=== PATIENT | male | born 1945 | race Caucasian/White ===

== ENCOUNTER 2021-08-26 10:49 | Inpatient (IN) ==
--- NOTE | 2021-08-26 11:25 | XRay Report ---
SINGLE VIEW CHEST CLINICAL HISTORY: Generalized weakness. FINDINGS: An AP, portable, upright chest radiograph is compared to study dated 09/22/2009. The examinat ion is degraded by portable technique and apical lordotic positioning. The patient is status post mid line sternotomy. The heart is enlarged noting atherosclerotic calcification of the thoracic aorta. Ch ronic interstitial thickening is similar to previous. There is bibasilar scarring/atelectasis. No air space consolidation or large pleural effusion is identified. No pneumothorax is seen. The skeletal st ructures are osteopenic. The bony thorax is grossly intact. IMPRESSION: Cardiomegaly with no acute cardiopulmonary abnormality. ACT 112: Negative or not required by law. Electronically signed by: Hunter Gracia M.D. 08/26/2021 11:23 AM
--- NOTE | 2021-08-26 11:48 | Emergency Department Note ---
Impression & Plan Weakness, Falling, Hypertension, Elevated troponin, Medical non-compliance ED Provider Note NAME: WALLACE ALCANTAR AGE: 76 SEX: M : 1945 ARRIVES VIA: Walk-In INFORMANT: Patient, family, nursing ED PROVIDER(S): [Hunter Nunn MD] CHIEF COMPLAINT: Weakness, illness HISTORY OF PRESENT ILLNESS: The patient is a 76-year-old male who is brought in for evaluation by his family. As per the family's report, the patient stopped taking all of his medications in May, several months ago. Since that timeframe, he has had a slow but steady decline. Yesterday, they actually called the office of aging but, that service has not yet been out to the house. The patient fell last week because of weakness. He is off balance and cannot ambulate on his own. He is more confused. His blood pressure has been high. He has lost urine and bowel continence. The patient is adamant that there is nothing wrong, he was for a long time refusing an evaluation but did agree to come to the ER today. The patient himself denies complaints. He does not have pain. He is not short of breath. There is no headache. No chest pain. Patient does admit that he is having difficulty walking. He admits to stopping his medications because he states "I just did not need them." As per nursing staff, the patient cannot ambulate on his own without assistance. He would have fallen without help. REVIEW OF SYSTEMS: See HPI for pertinent positives and negatives. A total of ten systems were reviewed and were otherwise negative. PMHx/PSHx: See Below SOCIAL HISTORY: See Below. PHYSICAL EXAM: GENERAL: Patient is in no acute distress. HEENT: No acute trauma, normocephalic atraumatic, mucous membranes moist, no nasal congestion, no scleral icterus. NECK: No stridor, no adenopathy, no meningismus, trachea is midline. LUNGS: Clear to auscultation bilaterally, no wheeze, no rhonchi, breath sounds equal. HEART: Without murmurs gallops or rubs, regular rate and rhythm. ABDOMEN: Soft, nontender, bowel sounds positive, no hernias, no peritonitis. EXTREMITIES: No cyanosis, trace bilateral pedal edema, full range of motion of all the joints without pain or difficulty, no signs for acute trauma. NEUROLOGIC: Awake and alert, no acute motor or sensory deficits, no focal weakness. No facial droop or speech slur, no extremity drift or cerebellar dysfunction. SKIN: No rash, no jaundice, no diaphoresis. DIFFERENTIAL DIAGNOSIS: Infection, dehydration, UTI, COVID-19, dementia, medication noncompliance, metabolic abnormality, hypo/hyperglycemia, electrolyte disturbance, anemia, hypoxia, cardiac sources, intracerebral event, toxicologic issues, stroke, TIA, as well as other pathologies. EMERGENCY DEPARTMENT COURSE/PROCEDURES: ECG: Indication was weakness. The ECG shows a normal sinus rhythm with a rate of 76. There is an incomplete right bundle branch block. No ST elevation. No PVCs. There are inverted T waves laterally. Compared to an ECG from 23 September 2009, the lateral T wave inversions are more pronounced today. Continuous Cardiac Monitoring: An order was placed for continuous cardiac monitoring. The monitor shows a rate of 76 with normal sinus rhythm. Critical Care Note: I have personally spent 39 minutes of critical care time in the direct management of this patient. This includes bedside care, interpretation of diagnostic studies, and testing, discussion with consultants, patient, and family members, and other required patient management activities. This 39 minutes is in excess of all separately billable procedures. MEDICAL DECISION MAKING: There is no leukocytosis or concerning anemia. There is a normal platelet count. No significant electrolyte abnormality or kidney failure. No concerning liver enzyme elevation. TSH was slightly high however, the T4 was normal. ECG shows a normal sinus rhythm. There are some inverted T waves noted but no ST elevation. Cardiac enzyme testing x1 does show a troponin bump consistent with cardiac injury or strain. Brain CT shows older infarcts, no acute bleed or mass-effect. Chest film does not show pneumonia or CHF. Urinalysis is pending. The patient was hypertensive. He received IV hydralazine, IV labetalol. A second dose of IV labetalol was given. The patient has been medically noncompliant. He presents with weakness and falling and the inability to ambulate. He has had some urinary and bowel incontinence. He is quite hypertensive and has CT findings of older CVAs. The patient has consented to a hospital stay for more of a work-up and care. I did speak with the patient and his , case management has been involved. The on-call hospitalist has been consulted. Past Med/Surg History Medical History Hypertension Social History Smoking Status: Former smoker Feels Safe at Home: Yes Allergies Allergies Allergy/AdvReac Type Severity Reaction Status Date / Time No Known Allergies Verified 08/26/21 12:04 Home Meds Home Medications Medication Instructions Recorded Confirmed No Known Home Medications 08/26/21 08/26/21 Results & Data (ED) Vital Signs Vital Signs - 24 hr 08/26/21 10:55 08/26/21 11:36 08/26/21 11:37 Temperature 36.5 C Temperature Source Skin Pulse Rate 83 Pulse Rate [Apical] 76 Pulse Rhythm Regular Pulse Rhythm [Apical] Pulse Strength Normal Respiratory Rate 20 16 Respiratory Effort / Characteristics Non-Labored Spontaneous Respiratory Depth Normal Respiratory Pattern Regular Blood Pressure 185/107 H Blood Pressure [Left Arm] 195/121 H Blood Pressure Mean 133 Blood Pressure Mean [Left Arm] 145 Pulse Oximetry 95 99 99 Oxygen Delivery Method Room Air Room Air Room Air Sepsis Recent Fever Within 48 Hours No Sepsis New/Unexplained Change in Mental Status N/A Sepsis Action Taken by Nursing No Action Required 08/26/21 14:52 Temperature Temperature Source Pulse Rate Pulse Rate [Apical] 77 Pulse Rhythm Pulse Rhythm [Apical] Regular Pulse Strength Respiratory Rate 15 Respiratory Effort / Characteristics Respiratory Depth Normal Respiratory Pattern Blood Pressure Blood Pressure [Left Arm] 201/119 H Blood Pressure Mean Blood Pressure Mean [Left Arm] 146 Pulse Oximetry 95 Oxygen Delivery Method Sepsis Recent Fever Within 48 Hours Sepsis New/Unexplained Change in Mental Status Sepsis Action Taken by [facility] Medications Current Medication List: was personally reviewed by me Laboratory Data Attestation: I reviewed the patient's lab results. Result diagrams: 08/26/21 11:30 08/26/21 11:30 Lab Results 08/26/21 08/26/21 08/26/21 Range/Units 11:30 11:30 11:30 WBC 9.31 (4.8-10.8) K/uL RBC 5.52 (4.7-6.1) M/uL Hgb 17.4 (14.0-18.0) g/dL Hct 50.5 (42-52) % MCV 91.5 (80-100) fL MCH 31.5 (25-34) pg MCHC 34.5 (32-36) g/dL RDW Std Deviation 45.0 (36.4-46.3) fL RDW Coeff of Satya 13.4 (11.5-14.5) % Plt Count 239 (130-400) K/uL MPV 10.4 (7.4-10.4) fL Immature Gran % (Auto) 0.2 % Neut % (Auto) 73.0 % Lymph % (Auto) 18.6 % Haakon % (Auto) 6.9 % Eos % (Auto) 1.1 % Baso % (Auto) 0.2 % Neut # (Auto) 6.80 H (1.4-6.5) K/uL Lymph # (Auto) 1.73 (1.2-3.4) K/uL Haakon # (Auto) 0.64 H (0.11-0.59) K/uL Eos # (Auto) 0.10 (0-0.5) K/uL Baso # (Auto) 0.02 (0-0.2) K/uL Immature Gran # (Auto) 0.02 (0.00-0.02) K/uL Sodium 142 (136-145) mmol/L Potassium TNP Chloride 103 (98-107) mmol/L Carbon Dioxide 30 (21-32) mmol/L Anion Gap 9 (3-11) BUN 12 (6-23) mg/dl Creatinine 1.35 (0.6-1.4) mg/dl Est Cr Clr Drug Dosing Not Reportable Est GFR ( Amer) 57.9 ml/min Est GFR (Non-Af Amer) 49.9 ml/min BUN/Creatinine Ratio 8.9 L (10-20) Glucose 108 H (70-99(Fasting)) mg/dl Calcium 9.4 (8.5-10.1) mg/dl Magnesium 2.3 (1.7-2.4) mg/dl Total Bilirubin 0.7 (0.2-1.0) mg/dl AST TNP ALT 13 (7-52) U/L Alkaline Phosphatase 81 (34-104) U/L Total Creatine Kinase 111 (30-223) U/L Troponin I 0.12 H* (0-0.04) ng/ml Total Protein 7.4 (6.0-8.3) gm/dl Albumin 4.2 (3.4-5.0) gm/dl Globulin 3.2 (2.5-4.0) gm/dl Albumin/Globulin Ratio 1.3 (0.9-2) TSH 4.923 H (0.300-4.500) uIu/ml Free T4 0.72 (0.61-1.60) ng/dl SARS-CoV-2, RNA, NAAT (NEGATIVE) 08/26/21 Range/Units 11:57 WBC (4.8-10.8) K/uL RBC (4.7-6.1) M/uL Hgb (14.0-18.0) g/dL Hct (42-52) % MCV (80-100) fL MCH (25-34) pg MCHC (32-36) g/dL RDW Std Deviation (36.4-46.3) fL RDW Coeff of Satya (11.5-14.5) % Plt Count (130-400) K/uL MPV (7.4-10.4) fL Immature Gran % (Auto) % Neut % (Auto) % Lymph % (Auto) % Haakon % (Auto) % Eos % (Auto) % Baso % (Auto) % Neut # (Auto) (1.4-6.5) K/uL Lymph # (Auto) (1.2-3.4) K/uL Haakon # (Auto) (0.11-0.59) K/uL Eos # (Auto) (0-0.5) K/uL Baso # (Auto) (0-0.2) K/uL Immature Gran # (Auto) (0.00-0.02) K/uL Sodium (136-145) mmol/L Potassium Chloride (98-107) mmol/L Carbon Dioxide (21-32) mmol/L Anion Gap (3-11) BUN (6-23) mg/dl Creatinine (0.6-1.4) mg/dl Est Cr Clr Drug Dosing Est GFR ( Amer) ml/min Est GFR (Non-Af Amer) ml/min BUN/Creatinine Ratio (10-20) Glucose (70-99(Fasting)) mg/dl Calcium (8.5-10.1) mg/dl Magnesium (1.7-2.4) mg/dl Total Bilirubin (0.2-1.0) mg/dl AST ALT (7-52) U/L Alkaline Phosphatase (34-104) U/L Total Creatine Kinase (30-223) U/L Troponin I (0-0.04) ng/ml Total Protein (6.0-8.3) gm/dl Albumin (3.4-5.0) gm/dl Globulin (2.5-4.0) gm/dl Albumin/Globulin Ratio (0.9-2) TSH (0.300-4.500) uIu/ml Free T4 (0.61-1.60) ng/dl SARS-CoV-2, RNA, NAAT NEGATIVE (NEGATIVE) Administered Medications Discontinued Medications Hydralazine HCl (Hydralazine Hcl 20 Mg/Ml Vial) 10 mg IV NOW STA Stop: 08/26/21 13:10 Last Admin: 08/26/21 13:15 Dose: 10 mg Documented by: [id number] Labetalol HCl (Labetalol Hcl Iv 5 Mg/Ml 20ml) 10 mg IV NOW STA Stop: 08/26/21 12:29 Last Admin: 08/26/21 12:34 Dose: 10 mg Documented by: [id number] Cosigned by: [id number] Imaging Data Radiologist's Impression: Chest X-Ray 08/26/21 11:08 SINGLE VIEW CHEST CLINICAL HISTORY: Generalized weakness. FINDINGS: An AP, portable, upright chest radiograph is compared to study dated 09/22/2009. The examination is degraded by portable technique and apical lordotic positioning. The patient is status post midline sternotomy. The heart is enlarged noting atherosclerotic calcification of the thoracic aorta. Chronic interstitial thickening is similar to previous. There is bibasilar scarring/atelectasis. No airspace consolidation or large pleural effusion is identified. No pneumothorax is seen. The skeletal structures are osteopenic. The bony thorax is grossly intact. IMPRESSION: Cardiomegaly with no acute cardiopulmonary abnormality. ACT 112: Negative or not required by law. Electronically signed by: Hunter Gracia M.D. 08/26/2021 11:[address] 08/26/21 11:08 CT SCAN OF THE BRAIN WITHOUT IV CONTRAST CLINICAL HISTORY: Change in mental status. COMPARISON STUDY: No priors. TECHNIQUE: Unenhanced axial CT scan of the brain is performed from the vertex to the skull base. A dose lowering technique was utilized adhering to the principles of ALARA. CT DOSE: 537.48 mGy.cm FINDINGS: Brain parenchyma: There are age-related involutional changes noting moderate to advanced subcortical and periventricular microangiopathic change. Chronic appearing infarcts are noted in the basal ganglia bilaterally. There is no hemorrhage, mass effect, or evidence of acute territorial ischemia by CT criteria. Rodriguez-white matter differentiation is preserved. No extra-axial fluid collection is seen. Ventricles, sulci, cisterns: Prominent secondary to involutional change. Intracranial vasculature: There is atherosclerotic calcification of the cavernous carotid and vertebral arteries. Calvarium: Unremarkable. Sinuses and mastoids: The visualized paranasal sinuses are clear. The mastoid air cells are well pneumatized. Orbits: The bony orbits are grossly intact. IMPRESSION: There is no hemorrhage, mass effect, or evidence of acute territorial ischemia by CT criteria. ACT 112: Negative or not required by law. Electronically signed by: Hunter Gracia M.D. 08/26/2021 12:15 PM Discharge Plan Visit Data Chief Complaint: Shortness of Breath/Dyspnea Stated Complaint: INCONTINENCE, REFUSING MEDS, MENTAL HEALTH, SOB ED Provider: Hunter Nunn Discharge Problem: Weakness, Falling, Hypertension, Elevated troponin, Medical non-compliance Patient Disposition: Admitted As Inpatient Condition: Fair Forms Stand Alone Forms: [employer] Prescriptions Prescriptions: No Action No Known Home Medications RF: 0 Referrals Referrals: PCP,NO [Primary Care Provider] -
[2021-08-26 11:56] LABS: Basophils # (auto) 0.02 K/uL (0-0.2); Basophils % (auto) 0.2 %; Eosinophils % (auto) 1.1 %; Hematocrit (blood only) 50.5 % (42-52); Hemoglobin 17.4 g/dL (14.0-18.0); Immature Granulocytes # (auto) 0.02 K/uL (0.00-0.02); Immature Granulocytes % (auto) 0.2 %; Lymphocytes # (auto) 1.73 K/uL (1.2-3.4); Lymphocytes % (auto) 18.6 %; Mean Corpuscular Hemoglobin 31.5 pg (25-34); Mean Corpuscular Hgb Conc 34.5 g/dL (32-36); Mean Corpuscular Volume 91.5 fL (80-100); Mean Platelet Volume 10.4 fL (7.4-10.4); Monocytes # (auto) 0.64 K/uL (0.11-0.59); Monocytes % (auto) 6.9 %; Platelet Count 239 K/uL (130-400); RDW Coefficient of Variation 13.4 % (11.5-14.5); Red Blood Count 5.52 M/uL (4.7-6.1); White Blood Count 9.31 K/uL (4.8-10.8)
--- NOTE | 2021-08-26 12:02 | Electrocardiogram Report ---
Test Reason : Blood Pressure : / mmHG Vent. Rate : 076 BPM Atrial Rate : 076 BPM P-R Int : 196 ms QRS Dur : 092 ms QT Int : 412 ms P-R-T Axes : 074 -56 128 degrees QTc Int : 463 ms Normal sinus rhythm Incomplete right bundle branch block Left anterior fascicular block Poor R wave progression, consider anterior ND vs. lead placement vs. LVH Left ventricular hypertrophy with repolarization abnormality Abnormal ECG When compared with ECG of 23-SEP-2009 06:55, Left anterior fascicular block is now Present Inverted T waves have replaced nonspecific T wave abnormality in Lateral leads Confirmed by Naren Rachel ([id number]) on 08/26/2021 12:02:10 PM Referred By: Confirmed By:Naren Rachel
--- NOTE | 2021-08-26 12:16 | CT Scan Report ---
CT SCAN OF THE BRAIN WITHOUT IV CONTRAST CLINICAL HISTORY: Change in mental status. COMPARISON STUDY: No priors. TECHNIQUE: Unenhanced axial CT scan of the brain is performed from the vertex to the skull base. A do se lowering technique was utilized adhering to the principles of ALARA. CT DOSE: 537.48 mGy.cm FINDINGS: Brain parenchyma: There are age-related involutional changes noting moderate to advanced subcortical and periventricular microangiopathic change. Chronic appearing infarcts are noted in the basal gangl ia bilaterally. There is no hemorrhage, mass effect, or evidence of acute territorial ischemia by CT criteria. Rodriguez-white matter differentiation is preserved. No extra-axial fluid collection is seen. Ventricles, sulci, cisterns: Prominent secondary to involutional change. Intracranial vasculature: There is atherosclerotic calcification of the cavernous carotid and vertebr al arteries. Calvarium: Unremarkable. Sinuses and mastoids: The visualized paranasal sinuses are clear. The mastoid air cells are well pneu matized. Orbits: The bony orbits are grossly intact. IMPRESSION: There is no hemorrhage, mass effect, or evidence of acute territorial ischemia by CT sita mcintosh. ACT 112: Negative or not required by law. Electronically signed by: Hunter Gracia M.D. 08/26/2021 12:15 PM
[2021-08-26 12:25] LABS: Alanine Aminotransferase 13 U/L (7-52); Albumin Globulin Ratio 1.3 (0.9-2); Albumin Level 4.2 gm/dl (3.4-5.0); Alkaline Phosphatase 81 U/L (34-104); Anion Gap 9 (3-11); BUN Creatinine Ratio 8.9 (10-20); Bilirubin,Total 0.7 mg/dl (0.2-1.0); Blood Urea Nitrogen 12 mg/dl (6-23); Calcium 9.4 mg/dl (8.5-10.1); Carbon Dioxide 30 mmol/L (21-32); Chloride 103 mmol/L (98-107); Creatine Kinase 111 U/L (30-223); Est GFR (African American) 57.9 ml/min; Est GFR (Non-African American) 49.9 ml/min; Globulin 3.2 gm/dl (2.5-4.0); Glucose 108 mg/dl (70-99(Fasting)); Magnesium 2.3 mg/dl (1.7-2.4); Sodium 142 mmol/L (136-145); Total Protein 7.4 gm/dl (6.0-8.3); Troponin I 0.12 ng/ml (0-0.04)
[2021-08-26] MEDS ORDERED: LABETALOL HCL IV 5 MG/ML 20ML IV STA ×2 (12:28→14:55)
[2021-08-26 12:30] LABS: Thyroid Stimulating Hormone 4.923 uIu/ml (0.300-4.500)
[2021-08-26 13:07] LABS: T4 Free Thyroxine 0.72 ng/dl (0.61-1.60)
[2021-08-26] MEDS ORDERED: hydrALAZINE HCL 20 MG/ML VIAL IV STA (13:09)
[2021-08-26] MEDS ORDERED: lisinopril 20 MG TAB PO STA (16:06)
[2021-08-26] MEDS ORDERED: SODIUM CHLORIDE 0.65% NA SOLN 45 ML (OCEAN) ONE (16:32)
--- NOTE | 2021-08-26 17:54 | History & Physical Report ---
Date of Service August 26, 2021 Assessment & Plan (1) Hypertensive urgency: Plan: 76-year-old white male with an underlying past medical history of HTN and CAD s/p MO and CABG presented with progressive decline, intermittent confusion and ambulatory dysfunction * Stopped taking all of his medications May 2021 * not following with PCP or Cardiology at this time * BP upon arrival 195/121 * Given labetalol 10 mg IV X2 and hydralazine 10 mg IV X1. Follow-up BP pending * Lengthy discussion with patient regarding the importance of medical compliance * Start lisinopril 20 mg daily along with Coreg 6.25 mg daily (for BP control but also given his underlying h/o CAD) * EF unknown. Obtain echo and if EF >35%, consider addition of procardia if continued BP control needed (2) Hypertensive encephalopathy: Plan: * Patient seems answer all questions appropriately but does appear to have intermittent periods of subtle confusion. reports ongoing but she has not been able to get patient to come into the hospital * I suspect this is related to hypertensive encephalopathy * See above as outlined (3) Cerebrovascular disease: Plan: * CT scan showing findings consistent with chronic basal ganglia infarct * Hold off on MRI for now as patient without acute neurological deficits as I do not feel he would be compliant with an MRI * Should be on an aspirin and statin irregardless because of his underlying CAD thus these medication should also help provide cerebrovascular protection * Would consider MRI should his clinical status change * Obtain echocardiogram and carotid Dopplers to further assess LV function, for intracardiac thrombus and to assess carotid flow * Lipid panel in the a.m. for risk stratification (4) Ambulatory dysfunction: Plan: * Uncertain what to make of this but likely related to general decline given lack of compliance with medications * Will get him back on the appropriate medications and consult PT/OT (5) Abnormal TSH: Plan: * I have ordered a free T4 and a total T3 * May have euthyroid sick syndrome * Would hold off on additional medications at this time (as he believes he does not need to take any medications and right now, I think the antihypertensive medications more important) * Would advise follow-up TSH in 6 to 8 weeks and if remains abnormal, would have a low threshold to start Synthroid given his underlying history of cardiac disease (6) Elevated troponin: Plan: * Patient without chest pain. He does have nonspecific but nonacute ST/T wave changes throughout * Will cycle troponin * Suspect secondary to hypertensive urgency * Obtain echocardiogram (7) Medical non-compliance: Plan: * Lengthy discussion with patient regarding the importance of medical compliance and the fact that his noncompliance with his antihypertensive medications is likely the cause to his old stroke which fortunately has left him without sequ mo * He is well aware of the complications of continued medical noncompliance * I am not convinced that he will take his medications but he has agreed to take the medications as outlined and stay overnight at least tonight (8) CAD (coronary artery disease): Plan: * Patient stopped all medications * As outlined above, starting him on lisinopril, beta-blockade, statin therapy, and aspirin * Obtain an echocardiogram as above * Will need reestablish with cardiology but this can be facilitated as an outpatient pending he has no cardiac complications during this hospital stay Plan: Plan of care will be discussed with Dr. Calderon. Further orders as warranted. History of Present Illness Chief Complaint: Weakness and increased confusion Primary Care Provider: NO PCP Mr. Rogers is a 76-year-old white male with an underlying past medical history of HTN and CAD s/p MO and CABG. He is a limited historian given his agitation and inability to cooperate with the exam. His is at bedside. She reports ongoing decline/debility over the past several weeks to months. On his own accord, he stopped taking all of his medications May 2021 as "he did not need them anymore". He does seem to be answering all my questions appropriately but there are times that he seems slightly confused saying things like "I will take my 's medications and the medications I am on increase my blood pressure". At any rate, reports that she has been struggling to provide care for him as he continues to decline. He has been progressively weak and lately unable to ambulate independently. He seemed somewhat confused which prompted her to seek medical attention. In the emergency department. His blood pressure was elevated at 195/121. He was given labetalol and hydralazine IV with limited improvement in his blood pressure requiring a second dose of labetalol be given. Patient needs unable to tell me specifically what medications he was on for blood pressure control but believes lisinopril sounds familiar. At any rate, his CBC and metabolic panel were unremarkable. His troponin was slightly elevated at 0.12. He denies chest pain, and his EKG is nonacute. His Covid test is negative. CT scan of the head shows no acute intracranial process but findings consistent with chronic infarcts noted in the basal ganglia. Chest x- ray shows no acute cardiopulmonary process. Patient reports no complaints or concerns. He claims "I feel fine and I do not need to be here". Will be hospitalized for further evaluation and care. Allergies Allergy/AdvReac Type Severity Reaction Status Date / Time No Known Allergies Verified 08/26/21 12:04 Home Medications Medication Instructions Recorded Confirmed Type No Known Home Medications 08/26/21 08/26/21 History Past Med/Surg History Medical History (Updated 08/26/21 @ 17:50 by Nafisa Munoz PA-C) CAD (coronary artery disease) Cerebrovascular disease Hypertension Surgical History (Updated 08/26/21 @ 17:38 by Nafisa Munoz PA-C) Hx of CABG Social History (Updated 08/26/21 @ 17:39 by Nafisa Munoz PA-C) Smoking Status: Former smoker Tobacco Type: Cigarettes Hx Alcohol Use: No Hx Substance Use: No Current Living Situation: Spouse current occupational status: retired Feels Safe at Home: Yes Review of Systems Review of Systems: All systems reviewed and are unremarkable except as noted in HPI and below Denies fevers, chills, headache, nasal congestion, sore throat, cough, chest pain, shortness of breath, palpitations, orthopnea, PND, abdominal pain, nausea, vomiting, diarrhea, constipation, dysuria, hematuria, frequency, back pain, joint pain or swelling, easy bruising or bleeding, skin lesions or rashes. Physical Exam Physical Exam: General: Resting comfortably in his hospital bed. He does not appear acutely ill. Initially was very cantankerous but towards the end of our encounter, he was more cooperative HEENT: Head is AT/NC. Eyes somewhat injected. mucosa is moist and pink Neck: No JVD. Negative hepatojugular reflex Cardiac: RRR but distant likely due to habitus Lungs: CTA without W/R/R Abdomen: Normoactive X4. Soft and nontender in all quadrants. Extremities: No peripheral clubbing cyanosis or edema Neuro:[A&O X4does answer all questions appropriately. Cranial nerves II through XII are grossly intact. No focal neuro deficits Skin: No obvious skin lesions or rashes Psych: Appropriate affect pleasant and cooperative Results & Data Results & Data ([facility]) Vital Signs (Past 12 Hours) Vital Signs Temp Pulse Pulse Resp BP BP Pulse Ox 08/26/21 14:52 77 15 201/119 H 95 08/26/21 11:37 99 08/26/21 11:36 76 16 195/121 H 99 08/26/21 10:55 36.5 C 83 20 185/107 H 95 Laboratory Results 08/26/21 11:30 08/26/21 11:30 Troponin: 0.12 TSH: 4.923 Covid: Negative Diagnostic Findings CXR: IMPRESSION: Cardiomegaly with no acute cardiopulmonary abnormality. CT of the head: FINDINGS: Brain parenchyma: There are age-related involutional changes noting moderate to advanced subcortical and periventricular microangiopathic change. Chronic appearing infarcts are noted in the basal ganglia bilaterally. There is no hemorrhage, mass effect, or evidence of acute territorial ischemia by CT criteria. Rodriguez-white matter differentiation is preserved. No extra-axial fluid collection is seen. Ventricles, sulci, cisterns: Prominent secondary to involutional change. Intracranial vasculature: There is atherosclerotic calcification of the cavernous carotid and vertebral arteries. Calvarium: Unremarkable. Sinuses and mastoids: The visualized paranasal sinuses are clear. The mastoid air cells are well pneumatized. Orbits: The bony orbits are grossly intact. IMPRESSION: There is no hemorrhage, mass effect, or evidence of acute territorial ischemia by CT criteria. EKG: Normal sinus rhythm. Rate 76 bpm. Left axis deviation. Poor R wave progression. Nonspecific but no acute ST/T wave changes throughout. Code Status & VTE Plan VTE Prophylaxis Plan VTE Prophylaxis will be ordered: Yes Supervising Physician Co-Signing Physician Notes Reviewed documentation, discussed with BHARATI. This is a 76-year-old male who presents with significantly elevated blood pressure. He does have a history of hypertension but has been noncompliant with his medications over several months. His blood pressure is documented at 201/119. Patient is being started outpatient medication including lisinopril and carvedilol. He has hydralazine 10 mg ordered every 6 hours. If blood pressure remains very elevated the patient develops any neurologic symptoms, consider transfer to the ICU and IV drip (nitro, nicardipine, or similar) PG Care Time/CCT Total # of Minutes Spent Total Time Spent with Patient: Total time spent is greater than 50% in coordination of care (as documented) at patient's floor/unit and/or counseling patient: Coding Level of Care Code INT OBSERVATION CARE 70M LVL 3 Diagnoses Hypertensive urgency I16.0 Hypertensive encephalopathy I67.4 Ambulatory dysfunction R26.2 Abnormal TSH R79.89 Elevated troponin R77.8 Medical non-compliance Z91.19 CAD (coronary artery disease) I25.10 Cerebrovascular disease I67.9
[2021-08-26 19:10] LABS: Appearance Urine Clear (Clear); Bacteria Urine Automated Negative (Negative); Bilirubin Urine Negative (Negative); Blood Urine Negative (Negative); Color Urine Dark Yellow; Glucose Urine UA Negative (Negative); Ketones Urine Trace (Negative); Leukocyte Esterase Urine Negative (Negative); Nitrite Urine Negative (Negative); Protein Urine 1+ (Negative); RBC Urine Automated 0-4 /hpf (0-4); Specific Gravity Urine 1.023 (1.000-1.030); Urobilinogen Urine Negative (Negative); pH Urine 5.5 (4.5-7.5)
[2021-08-26 19:26] LABS: Calcium Oxalate Crystals Urine Present (None Prsent)
[2021-08-26] MEDS ORDERED: ALUMINUM/MAGNESIUM SUSP 30 ML UDC PO PRN (19:31)
[2021-08-26] MEDS ORDERED: POLYETHYLENE (MIRALAX) 17 GM PACK PO PRN (19:31)
[2021-08-26] MEDS ORDERED: ACETAMINOPHEN 325 MG TAB PO PRN (19:31)
[2021-08-26] MEDS ORDERED: NITROGLYCERIN SL 0.4 MG/TAB TAB SL PRN (19:31)
[2021-08-26] MEDS ORDERED: ONDANSETRON INJ 2 MG/ML 2 ML VIAL IV PRN (19:31)
[2021-08-26] MEDS ORDERED: MAGNESIUM HYDROXIDE SUSP 30 ML UDC PO PRN (19:31)
[2021-08-26] MEDS: ENOXAPARIN INJ 40 MG/0.4 ML SYR SQ SCH (20:40)
[2021-08-26] MEDS: hydrALAZINE HCL 20 MG/ML VIAL IV PRN (20:40)
[2021-08-26] MEDS: carvediloL 6.25 MG TAB PO SCH (20:40)
[2021-08-27 02:23] LABS: Basophils # (auto) 0.01 K/uL (0-0.2); Basophils % (auto) 0.1 %; Eosinophils # (auto) 0.08 K/uL (0-0.5); Eosinophils % (auto) 0.9 %; Hematocrit (blood only) 48.8 % (42-52); Hemoglobin 16.5 g/dL (14.0-18.0); Immature Granulocytes # (auto) 0.01 K/uL (0.00-0.02); Immature Granulocytes % (auto) 0.1 %; Lymphocytes % (auto) 20.6 %; Mean Corpuscular Hemoglobin 30.8 pg (25-34); Mean Corpuscular Hgb Conc 33.8 g/dL (32-36); Mean Platelet Volume 10.1 fL (7.4-10.4); Monocytes # (auto) 0.63 K/uL (0.11-0.59); Monocytes % (auto) 6.8 %; Neutrophils # (auto) 6.58 K/uL (1.4-6.5); Neutrophils % (auto) 71.5 %; Platelet Count 210 K/uL (130-400); RDW Coefficient of Variation 13.4 % (11.5-14.5); RDW Standard Deviation 44.2 fL (36.4-46.3); Red Blood Count 5.36 M/uL (4.7-6.1); White Blood Count 9.21 K/uL (4.8-10.8)
[2021-08-27 02:57] LABS: Albumin Globulin Ratio 1.3 (0.9-2); Albumin Level 3.7 gm/dl (3.4-5.0); BUN Creatinine Ratio 11.9 (10-20); Bilirubin,Total 0.7 mg/dl (0.2-1.0); Calcium 9.1 mg/dl (8.5-10.1); Creatinine Clr Calc Pharmacy 62.9 ml/min; Est GFR (African American) 68.1 ml/min; Est GFR (Non-African American) 58.8 ml/min; Globulin 2.8 gm/dl (2.5-4.0); Magnesium 2.1 mg/dl (1.7-2.4); Potassium 3.1 mmol/L (3.5-5.1); Total Protein 6.5 gm/dl (6.0-8.3)
[2021-08-27] MEDS ORDERED: POTASSIUM CHLORIDE CRTAB 20 MEQ TABCR PO STA (07:43)
[2021-08-27] MEDS ORDERED: POTASSIUM CHLORIDE CRTAB 20 MEQ TABCR PO SCH (07:43)
--- NOTE | 2021-08-27 08:34 | Ultrasound Report ---
US carotid doppler BI CLINICAL HISTORY: Evaluate for carotid stenosis.. COMPARISON: None. TECHNIQUE: Rodriguez scale, Doppler spectral analysis, and color imaging was performed. Stenosis assessmen t by velocity criteria. FINDINGS: Right CCA velocity (cm/s): 83 Right ICA velocity (cm/s): 100 Right ICA/CCA ratio: 1.2 Right vertebral arterial flow: Antegrade. Right findings: There is no significant atherosclerotic plaquing noted on the right. Left CCA velocity (cm/s): 98 Left ICA velocity (cm/s): 98 Left ICA/CCA ratio: 1.0 Left vertebral arterial flow: Antegrade. Left findings: There is no significant atherosclerotic plaquing noted on the left. IMPRESSION: No significant atherosclerotic plaquing or significant flow limiting stenoses noted by v elocity criteria bilaterally. ACT 112: Negative or not required by law. Electronically signed by: Ricky Lopez M.D. 08/27/2021 8:33 AM
[2021-08-27] MEDS: lisinopril 20 MG TAB PO SCH (09:53)
[2021-08-27] MEDS: carvediloL 6.25 MG TAB PO SCH (09:53)
[2021-08-27] MEDS: ATORVASTATIN 40 MG TAB PO SCH (10:03)
[2021-08-27] MEDS: ASPIRIN 81 MG ECTAB PO SCH (10:03)
--- NOTE | 2021-08-27 14:35 | XCELERA ---
[id number]
[2021-08-27] MEDS ORDERED: LORazepam 0.5 MG TAB PO PRN (15:01)
--- NOTE | 2021-08-27 15:46 | Hospitalist Progress Note ---
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 Did improve with labetalol 10 mg IV x2 and hydralazine Patient was started on lisinopril 20 mg daily and Coreg 6.25 mg daily TTE: EF 65%, normal LV size and systolic function. Severe concentric LVH. Consider hydrochlorothiazide versus CCB for additional hypertension control if needed Blood pressure improved to 145/88 with above Continue to follow (2) Hypertensive encephalopathy: Plan: Encephalopathy, suspected hypertensive with CVA eval of below Patient acutely confused on admission - CT-H: There are age-related involutional changes noting moderate to advanced subcortical and periventricular microangiopathic change. Chronic appearing infarcts are noted in the basal ganglia bilaterally. There is no hemorrhage, mass effect, or evidence of acute territorial ischemia by CT criteria. Rodriguez- white matter differentiation is preserved. No extra-axial fluid collection is seen. Above consistent with chronic hypertensive infarcts Patient with worsened encephalopathy morning of 08/27, appropriate but again confused. No focal neurologic deficits. - MRIB pending No signs of infection, UA unremarkable, no leukocytosis, sodium normal, potassium 3.1 and repleted, glucose 102, creatinine normal, troponin no longer uptrending with echo as above Continue hypertensive control, MRI-B pending as above (3) Cerebrovascular disease: Plan: CT, MRI as above Triglyceride 231, cholesterol 209, LDL 128, HDL 35 TTE as above, normal EF but with concentric hypertrophy Started atorvastatin 40 mg Continue aspirin daily (4) Ambulatory dysfunction: Plan: ? General decline versus acute in the setting of encephalopathy Continue to follow Displays deficits in awareness, transfers, ambulation and overall mobility. May potentially be candidate for return home with 24/7 care, although may also require inpatient rehab ending clinical course (5) Abnormal TSH: Plan: TSH mildly elevated with normal T4, total T3 pending Suspect subclinical hypothyroid (6) Elevated troponin: Plan: No longer uptrending a.m. 08/27/2021 Suspect demand in the setting of hypertensive urgency Echo normal as above No ST segment changes on EKG (7) Medical non-compliance: Plan: Perr admitting provider:" Lengthy discussion with patient regarding the importance of medical compliance and the fact that his noncompliance with his antihypertensive medications is likely the cause to his old stroke which fortunately has left him without sequela * He is well aware of the complications of continued medical noncompliance * I am not convinced that he will take his medications but he has agreed to take the medications as outlined and stay overnight at least tonight" 2/3 patient is agreeable to medications, but has poor insight into his condition and is still acutely confused in conversation is limited by this. (8) CAD (coronary artery disease): Plan: Patient self stopped all medications 06/15 Continue medications (KETAN, beta-sherine, statin, aspirin as above) Echo as above Outpatient follow-up with cardiology Admission and Anticipated Discharge Date Admission Date: August 26, 2021 Jeanette Magallanes is seen at the bedside. He is in no acute distress, but is acutely confused. At time of assessment he is oriented to place, but was just redirected by nursing. Tangential thought process, is oriented to name and not date. On afternoon reassessment he is seen in the company of his . His reports that his mental status is starkly different from normal, and in particular his short-term memory and attention is extremely poor. He is pleasant, but remains tangential and confused. Denies pain, fever, chills, sweats, chest pain, difficulty breathing, nausea, vomiting, diarrhea, numbness, tingling, weakness. Review of Systems Review of Systems: All systems reviewed & are unremarkable except as noted in Subjective Physical Exam Physical Exam: General: Oriented to name, loosely oriented to place but I just been oriented by nursing and is not oriented on revisit in afternoon. Not oriented to date. Follows one-step commands. No acute distress, cooperative HEENT: Atraumatic, normocephalic. Vision and hearing grossly intact. Pupils equal and reactive to light. EOMs intact without nystagmus. Pulm: CTAB A&P. -wheezes, -rales, -rhonchi. Symmetrical chest rise. No increase in work of breathing. No respiratory distress. Cardiac: RRR, -mrg. Radial pulses intact and symmetrical. Abdominal: Nontender, nondistended, soft. BS present. Extremities: Mouthpiece Maker strength, ankle dorsiflexion/plantarflexion 5/5 and symmetrical although patient somewhat impulsive and requiring redirection to assess strength on exam. Radial and PT pulse intact and symmetrical Results & Data Results & Data ([facility]) Vital Signs (Past 12 Hours) Vital Signs Pulse Resp BP BP Pulse Ox 08/27/21 12:57 68 18 145/88 H 95 08/27/21 08:00 65 08/27/21 07:52 81 18 169/94 H 94 08/27/21 06:41 162/88 H PG Care Time/CCT Total # of Minutes Spent Total Time Spent with Patient: Total time spent is greater than 50% in coordination of care (as documented) at patient's floor/unit and/or counseling patient: Coding Level of Care Code 09656 Subseq Obs Care Lvl 2 Diagnoses Hypertensive urgency I16.0 Hypertensive encephalopathy I67.4 Cerebrovascular disease I67.9 Ambulatory dysfunction R26.2 Abnormal TSH R79.89 Elevated troponin R77.8 Medical non-compliance Z91.19 CAD (coronary artery disease) I25.10
--- NOTE | 2021-08-27 21:48 | Electrocardiogram Report ---
Test Reason : Blood Pressure : / mmHG Vent. Rate : 070 BPM Atrial Rate : 070 BPM P-R Int : 182 ms QRS Dur : 084 ms QT Int : 444 ms P-R-T Axes : 002 -32 167 degrees QTc Int : 479 ms Poor data quality, interpretation may be adversely affected Normal sinus rhythm Left axis deviation Abnormal ECG When compared with ECG of 23-SEP-2009 06:55, QRS axis Shifted left Inverted T waves have replaced nonspecific T wave abnormality in Anterolateral leads Confirmed by Jose Blum ([id number]) on 08/27/2021 9:47:36 PM Referred By: REFERRED SELF Confirmed By:Jose Blum
[2021-08-28] MEDS: carvediloL 6.25 MG TAB PO SCH ×3 (00:34→19:57)
[2021-08-28] MEDS: ENOXAPARIN INJ 40 MG/0.4 ML SYR SQ SCH ×2 (00:35→19:57)
[2021-08-28 07:51] LABS: Basophils # (auto) 0.01 K/uL (0-0.2); Basophils % (auto) 0.1 %; Eosinophils # (auto) 0.16 K/uL (0-0.5); Eosinophils % (auto) 1.9 %; Hematocrit (blood only) 46.1 % (42-52); Hemoglobin 15.6 g/dL (14.0-18.0); Immature Granulocytes # (auto) 0.01 K/uL (0.00-0.02); Immature Granulocytes % (auto) 0.1 %; Lymphocytes # (auto) 1.74 K/uL (1.2-3.4); Lymphocytes % (auto) 20.7 %; Mean Corpuscular Hgb Conc 33.8 g/dL (32-36); Mean Corpuscular Volume 91.5 fL (80-100); Mean Platelet Volume 10.2 fL (7.4-10.4); Monocytes # (auto) 0.68 K/uL (0.11-0.59); Monocytes % (auto) 8.1 %; Neutrophils # (auto) 5.82 K/uL (1.4-6.5); Neutrophils % (auto) 69.1 %; Platelet Count 200 K/uL (130-400); RDW Coefficient of Variation 13.3 % (11.5-14.5); RDW Standard Deviation 43.8 fL (36.4-46.3); Red Blood Count 5.04 M/uL (4.7-6.1); White Blood Count 8.42 K/uL (4.8-10.8)
[2021-08-28 08:09] LABS: Albumin Globulin Ratio 1.4 (0.9-2); Albumin Level 3.6 gm/dl (3.4-5.0); BUN Creatinine Ratio 13.6 (10-20); Bilirubin,Total 0.7 mg/dl (0.2-1.0); Calcium 8.9 mg/dl (8.5-10.1); Creatinine Clr Calc Pharmacy 56.7 ml/min; Est GFR (African American) 59.5 ml/min; Est GFR (Non-African American) 51.3 ml/min; Globulin 2.6 gm/dl (2.5-4.0); Potassium 3.1 mmol/L (3.5-5.1); Total Protein 6.2 gm/dl (6.0-8.3)
[2021-08-28] MEDS ORDERED: POTASSIUM CHLORIDE CRTAB 20 MEQ TABCR PO STA (09:00)
[2021-08-28] MEDS ORDERED: LORazepam 1 MG/2 ML VIAL IV PRN (09:39)
[2021-08-28] MEDS: lisinopril 20 MG TAB PO SCH (10:20)
[2021-08-28] MEDS: ASPIRIN 81 MG ECTAB PO SCH (10:20)
[2021-08-28 10:28] LABS: Lyme Ab IgG w/WB Rflx Negative (Negative); Lyme Ab IgM w/WB Rflx Negative (Negative)
[2021-08-28] MEDS: ATORVASTATIN 40 MG TAB PO SCH (11:12)
--- NOTE | 2021-08-28 11:24 | Hospitalist Progress Note ---
Date of Service August 28, 2021 Assessment & Plan (1) Hypertensive urgency: Plan: 76-year-old white male with an underlying past medical history of HTN and CAD s/p FL and CABG presented with progressive decline, intermittent confusion and ambulatory dysfunction 2/4 On afternoon revisit patient is seen in the presence of his daughter and . Patient is somewhat agitated and recurrently demands "get my clothes I do not care what you have to say." Family expresses concern that he has been been weak and confused, and still appears confused. Discussed that he has had a stroke, and that there is evidence of prior strokes likely from uncontrolled hypertension. Discussed addition of aspirin/Plavix, and the importance of pressure control to prevent future strokes which could be debilitating, life- threatening, or fatal. Discussed that PT recommended either acute rehab or 24/7 care. Patient reports "do not have a stroke ". Discussed patient's presentation, hypertension, and MRI findings. assessment patient is and daughter report that they do not feel they can be home for 24/7 care, and are concerned about his strength. Patient repeatedly demands to get dressed and leave. Patient refuses to answer orientation questions other than this on rev isit, does confuse the hospital for [place] on discussion with his although he had been reoriented earlier. Stressed that leaving home was not medically recommended, but that the hospital is not a [facility] and he is allowed to leave AMA if he expressed the risks and benefits of the decision and demonstrate capacity. When asked this patient was agreeable to taking blood pressure medicines at home, he reports "I do not need those". Patient is unable, or refuses to, verbalize why he is in the hospital, the risks and benefits of returning home, or the risk of benefits of continued untreated hypertension including recurrence of stroke with severe debility/injury/. Given his confusion with orientation, admitting hypertensive encephalopathy, and stroke I believe he does have a continued element of acute encephalopathy and while this does appear to be improving he does not at this time have capacity to leave AMA at this time. in addition patient is unable, or refuses to, verbalize his medical condition, risks/benefits of treatment and nontreatment, and does not relate any of these despite being informed that he is able to leave AMA if he demonstrates capacity by a verbalizing answers to/understanding of these questions. His does not feel that he is safe to return home and wishes for him to remain in the hospital for additional monitoring and potential placement to rehab, and would be his surrogate decision maker. 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 Did improve with labetalol 10 mg IV x2 and hydralazine Patient was started on lisinopril 20 mg daily and Coreg 6.25 mg daily. Has had good blood pressure control in the so far TTE: EF 65%, normal LV size and systolic function. Severe concentric LVH. Consider hydrochlorothiazide versus CCB for additional hypertension control if needed Blood pressure improved with above Continue to follow Patient reports "I do not need these ", and when medical presentation and case is discussed "I do not have any strokes " (2) Hypertensive encephalopathy: Plan: Encephalopathy, suspected hypertensive with CVA Patient acutely confused on admission - CT-H: There are age-related involutional changes noting moderate to advanced subcortical and periventricular microangiopathic change. Chronic appearing infarcts are noted in the basal ganglia bilaterally. There is no hemorrhage, mass effect, or evidence of acute territorial ischemia by CT criteria. Rodriguez- white matter differentiation is preserved. No extra-axial fluid collection is seen. Above consistent with chronic hypertensive infarcts Patient with worsened encephalopathy morning of 2/3, appropriate but again confused. No focal neurologic deficits. - MRIB: An acute lacunar infarct within the posterior limb of the left internal capsule measuring 6 mm. Atrophy, microvascular ischemic changes, and old infarcts as described above. The study is limited from a technical standpoint as the patient was unable to complete the entire examination. No signs of infection, UA unremarkable, no leukocytosis, sodium normal, potassium 3.1 and repleted, glucose 102, creatinine normal, troponin no longer uptrending with echo as above Continue hypertensive control. Evidence of concentric hypertrophy on echo consistent with ongoing uncontrolled hypertension prior to admission - Aspirin/Plaavix x3 weeks then --> aspirin (3) CVA (cerebral vascular accident): Plan: CT, MRI as above Triglyceride 231, cholesterol 209, LDL 128, HDL 35 TTE as above, normal EF but with concentric hypertrophy Started atorvastatin 40 mg Continue DAPT Hypertension control as noted (4) Cerebrovascular disease: (5) Ambulatory dysfunction: Plan: ? General decline versus acute in the setting of encephalopathy & with CVA Continue to follow Displays deficits in awareness, transfers, ambulation and overall mobility. - Anticipate need for rehab, family prefers [facility] but considering home with 24/ care. Reported would like to revisit tomorrow as concerns today for ongoing encephalopathy, improving as above (6) Abnormal TSH: Plan: TSH mildly elevated with normal T4, total T3 pending Suspect subclinical hypothyroid (7) Elevated troponin: Plan: No longer uptrending a.m. 08/27/2021 Suspect demand in the setting of hypertensive urgency Echo normal as above No ST segment changes on EKG (8) Medical non-compliance: Plan: Perr admitting provider:" Lengthy discussion with patient regarding the importance of medical compliance and the fact that his noncompliance with his antihypertensive medications is likely the cause to his old stroke which fortunately has left him without sequela * He is well aware of the complications of continued medical noncompliance * I am not convinced that he will take his medications but he has agreed to take the medications as outlined and stay overnight at least tonight" / patient is agreeable to medications, but has poor insight into his condition and is still acutely confused in conversation is limited by this. 08/28 conversation limited by acute but improving encephalopathy as above. (9) CAD (coronary artery disease): Plan: Patient self stopped all medications 06/15 Continue medications (KETAN, beta-sherine, statin, aspirin as above) Echo as above Outpatient follow-up with cardiology Admission and Anticipated Discharge Date Admission Date: August 28, 2021 Subjective Patient is seen at the bedside this morning. Did not complete MRI yesterday night due to agitation. Encephalopathy somewhat improved today, but still prominent in the morning patient requires frequent redirection and repeatedly asked where in the room his is. he is oriented to name, is not oriented to city (reports we are in [place]), and refuses to give the date. And later morning MRI was able able to be completed, does not acute lacunar infarct within the posterior limb of the internal capsule measuring 6 mm. On afternoon revisit patient is seen in the presence of his daughter and . Patient is somewhat agitated and recurrently demands "get me dressed, get me the hell out of here. I do not care what you have to say." Family expresses concern that he has been been weak and confused, and still appears confused. Discussed that he has had a stroke, and that there is evidence of prior strokes likely from uncontrolled hypertension. Discussed addition of aspirin/Plavix, and the importance of pressure control to prevent future strokes which could be debilitating, life-threatening, or fatal. Discussed that PT recommended either acute rehab or 24/7 care. At time of assessment patient is and daughter report that they do not feel they can be home for 24/7 care, and are concerned about his strength. Patient repeatedly demands to get dressed and leave. Patient refuses to answer orientation questions other than this on revisit, does confuse the hospital for [place] on discussion with his although he had been reoriented earlier. Stressed that leaving home was not medically recommended, but that the hospital is not a [facility] and he is allowed to leave AMA if he expressed the risks and benefits of the decision and demonstrate capacity. When asked this patient was agreeable to taking blood pressure medicines at home, he reports "I do not need those". Patient is unable, or refuses to, verbalize why he is in the hospital, the risks and benefits of returning home, or the risk of benefits of continued untreated hypertension including recurrence of stroke with severe debility/injury/. Given his confusion with orientation, admitting hypertensive encephalopathy, and stroke I believe he does have a continued element of acute encephalopathy and while this does appear to be improving he does not at this time have capacity to leave AMA at this time. in addition patient is unable, or refuses to, verbalize his medical condition, risks/benefits of treatment and nontreatment, and does not relate any of these despite being informed that he is able to leave AMA if he demonstrates capacity by a verbalizing answers to/understanding of these questions. His does not feel that he is safe to return home and wishes for him to remain in the hospital for additional monitoring and potential placement to rehab, and would be his surrogate decision maker. Review of Systems Review of Systems: Other (pt refuses ROS other than noted in subjected) Physical Exam Physical Exam: General: Oriented to name, thinks he is in [place] in the morning, refuses orientation questions in afternoon HEENT: Atraumatic, normocephalic. Vision and hearing grossly intact. Pulm: CTAB A&P. -wheezes, -rales, -rhonchi. Symmetrical chest rise. No increase in work of breathing. No respiratory distress. Cardiac: RRR, -mrg. Radial pulses intact and symmetrical. Abdominal: Nontender, nondistended, soft. BS present. Extremities: Refuses extremity strength/sensation testing. Results & Data Results & Data ([facility]) Vital Signs (Past 12 Hours) Vital Signs Temp Pulse Pulse Resp BP BP Pulse Ox 08/28/21 09:10 66 18 164/92 H 94 08/28/21 08:00 75 13 08/28/21 04:17 66 22 165/116 H 94 08/28/21 01:15 36.7 C 66 18 152/92 H 92 08/28/21 00:00 70 PG Care Time/CCT Total # of Minutes Spent Total Time Spent with Patient: Total time spent is greater than 50% in coordination of care (as documented) at patient's floor/unit and/or counseling patient: Coding Level of Care Code 02584 Subseq Hosp Care Lvl 3 Diagnoses Hypertensive urgency I16.0 Hypertensive encephalopathy I67.4 Cerebrovascular disease I67.9 Ambulatory dysfunction R26.2 Abnormal TSH R79.89 Elevated troponin R77.8 Medical non-compliance Z91.19 CAD (coronary artery disease) I25.10 CVA (cerebral vascular accident) I63.9
--- NOTE | 2021-08-28 11:35 | Magnetic Resonance Report ---
Brain MRI WITHOUT CONTRAST HISTORY: Cognitive decline. persistent encephalopathy TECHNIQUE: Multiplanar multisequence MRI of the brain was performed without the use of contrast. COMPARISON STUDY: None. FINDINGS: The study is limited from a technical standpoint as the patient was unable to complete the entire examination. Only axial DWI, axial ADC, sagittal T1, and axial T2 sequences were obtained. The re is a 6 mm focus of restricted diffusion within the posterior limb of the left internal capsule con sistent with an acute lacunar infarct. Incidental note is made of a partially empty sella. The remain ing midline structures appear intact. The paranasal sinuses and left mastoid air cells are clear. Tra ce right mastoid effusion. The major vascular flow-voids at the skull base are well-maintained. Atrop hy and moderate microvascular ischemic changes are noted. There is an old lacunar infarct within the right basal ganglia. Motion artifact on the axial T2 sequences results in suboptimal evaluation. Ther e are old punctate lacunar infarcts within the bilateral cerebellar hemispheres and lizeth. The orbits are unremarkable. No mass, hematoma, midline shift. Old small right periventricular infarcts are also noted. IMPRESSION: 1. An acute lacunar infarct within the posterior limb of the left internal capsule measuring 6 mm. 2. Atrophy, microvascular ischemic changes, and old infarcts as described above. 3. The study is limited from a technical standpoint as the patient was unable to complete the entire examination. ACT 112: Negative or not required by law. Electronically signed by: Kt Diaz M.D. 08/28/2021 11:34 AM
--- NOTE | 2021-08-28 13:48 | Electrocardiogram Report ---
Test Reason : Blood Pressure : / mmHG Vent. Rate : 068 BPM Atrial Rate : 068 BPM P-R Int : 208 ms QRS Dur : 094 ms QT Int : 412 ms P-R-T Axes : 065 -19 172 degrees QTc Int : 438 ms Normal sinus rhythm Possible Inferior infarct (cited on or before 28-AUG-2020) Abnormal ECG When compared with ECG of 27-AUG-2020 12:50, No significant change was found Confirmed by Naren Rachel [id number]) on 08/28/2021 1:47:57 PM Referred By: REFERRED SELF Confirmed By:Naren Rachel
--- NOTE | 2021-08-28 14:57 | Communication Note ---
Date of Service: August 28, 2021 Ethics note Case discussed with attending renukaistnate on whether or not patient could leave against advice. Case discussedpatient with a stroke and yesterday quite encephalopathic. Today very combative and agitated. Attending unable to assess capacity due to patient refusal to answer questions appropriately. He is able to hold a conversation, but absolutely refuses to answer any questions that would allow primary to gauge capacity. At this point in time, while he would have the right to make his own decisions, I think the attending physicians assumption that the patient does not yet have capacity would be the most ethically correct. Given that he is coming off of a metabolic encephalopathy, has a new stroke, and is not voicing anything to show that he does have capacitygiven that encephalopathic conditions rarely clear overnight, I think the prudent course of action would be to assume the patient does not yet have capacity until he proves himself to have it. To that end, serial assessments of his capacity would be recommended, but if he continues to refuse to answer questions to gauge this, or his mental status changes for the worse, I would cautiously assume that currently he should not be allowed to make decisions on his own. Further corroborating this is that his family at the bedside apparently wholeheartedly disagrees with his decisions to leave the hospital.
[2021-08-28] MEDS ORDERED: HALOPERIDOL LACTATE 5 MG/ML 1 ML VIAL IM PRN (15:19)
[2021-08-28] MEDS ORDERED: MELATONIN 3 MG TAB PO PRN (15:21)
[2021-08-28] MEDS: hydrALAZINE HCL 20 MG/ML VIAL IV PRN (19:56)
[2021-08-29] MEDS: ATORVASTATIN 40 MG TAB PO SCH (08:34)
[2021-08-29] MEDS: ASPIRIN 81 MG ECTAB PO SCH (08:34)
[2021-08-29] MEDS: lisinopril 20 MG TAB PO SCH (08:34)
[2021-08-29] MEDS: carvediloL 6.25 MG TAB PO SCH (08:34)
[2021-08-29 08:45] LABS: BUN Creatinine Ratio 14.1 (10-20); Calcium 9.1 mg/dl (8.5-10.1); Creatinine Clr Calc Pharmacy 58.1 ml/min; Est GFR (African American) 61.7 ml/min; Est GFR (Non-African American) 53.3 ml/min; Magnesium 2.1 mg/dl (1.7-2.4); Potassium 3.6 mmol/L (3.5-5.1)
[2021-08-29] MEDS ORDERED: CLOPIDOGREL BISULFATE 75 MG TAB PO SCH (09:00)
[2021-08-29 09:05] LABS: Estimated Average Glucose 114 mg/dl; Hemoglobin A1C 5.6 % (4.5-5.6)
[2021-08-29] MEDS ORDERED: THIAMINE HCL 100 MG TAB PO SCH (11:00)
--- NOTE | 2021-08-29 11:04 | Discharge Summary ---
Date of Service August 29, 2021 Admission HPI Per Admitting Provider Mr. Rogers is a 76-year-old white male with an underlying past medical history of HTN and CAD s/p CA and CABG. He is a limited historian given his agitation and inability to cooperate with the exam. His is at bedside. She reports ongoing decline/debility over the past several weeks to months. On his own accord, he stopped taking all of his medications May 2021 as "he did not need them anymore". He does seem to be answering all my questions appropriately but there are times that he seems slightly confused saying things like "I will take my 's medications and the medications I am on increase my blood pressure". At any rate, reports that she has been struggling to provide care for him as he continues to decline. He has been progressively weak and lately unable to ambulate independently. He seemed somewhat confused which prompted her to seek medical attention. In the emergency department. His blood pressure was elevated at 195/121. He was given labetalol and hydralazine IV with limited improvement in his blood pressure requiring a second dose of labetalol be given. Patient needs unable to tell me specifically what medications he was on for blood pressure control but believes lisinopril sounds familiar. At any rate, his CBC and metabolic panel were unremarkable. His troponin was slightly elevated at 0.12. He denies chest pain, and his EKG is nonacute. His Covid niall t is negative. CT scan of the head shows no acute intracranial process but findings consistent with chronic infarcts noted in the basal ganglia. Chest x- ray shows no acute cardiopulmonary process. Patient reports no complaints or concerns. He claims "I feel fine and I do not need to be here". Will be hospitalized for further evaluation and care. Discharge Data Allergies Allergy/AdvReac Type Severity Reaction Status Date / Time No Known Allergies Verified 08/26/21 12:04 Consultations 08/26/21 13:21 ED Decision to Admit Stat Ordered Studies 08/26/21 11:08 CT head/brain wo con Stat 08/26/21 17:50 US carotid doppler BI Routine 08/28/21 10:30 MR brain wo con Urgent Hospital Course (1) Hypertensive urgency: 76-year-old white male with an underlying past medical history of HTN and CAD s/p CA and CABG presented with progressive decline, intermittent confusion and ambulatory dysfunction 2/4 On afternoon revisit patient is seen in the presence of his daughter and . Patient is somewhat agitated and recurrently demands "get my clothes I do not care what you have to say." Family expresses concern that he has been been weak and confused, and still appears confused. Discussed that he has had a stroke, and that there is evidence of prior strokes likely from uncontrolled hypertension. Discussed addition of aspirin/Plavix, and the importance of pressure control to prevent future strokes which could be debilitating, life- threatening, or fatal. Discussed that PT recommended either acute rehab or 24/7 care. Patient reports "do not have a stroke ". Discussed patient's presentation, hypertension, and MRI findings. assessment patient is and daughter report that they do not feel they can be home for 24/7 care, and are concerned about his strength. Patient repeatedly demands to get dressed and leave. Patient refuses to answer orientation questions other than this on debbie it, does confuse the hospital for [place] on discussion with his although he had been reoriented earlier. Stressed that leaving home was not medically recommended, but that the hospital is not a nursing home and he is allowed to leave AMA if he expressed the risks and benefits of the decision and demonstrate capacity. When asked this patient was agreeable to taking blood pressure medicines at home, he reports "I do not need those". Patient is unable, or refuses to, verbalize why he is in the hospital, the risks and benefits of returning home, or the risk of benefits of continued untreated hypertension including recurrence of stroke with severe debility/injury/. Given his confusion with orientation, admitting hypertensive encephalopathy, and stroke I believe he does have a continued element of acute encephalopathy and while this does appear to be improving he does not at this time have capacity to leave AMA at this time. in addition patient is unable, or refuses to, verbalize his medical condition, risks/benefits of treatment and nontreatment, and does not relate any of these despite being informed that he is able to leave AMA if he demonstrates capacity by a verbalizing answers to/understanding of these questions. His does not feel that he is safe to return home and wishes for him to remain in the hospital for additional monitoring and potential placement to rehab, and would be his surrogate decision maker. Hypertensive urgency Patient stopped refilling taking his medications 05/2021 Had not been following with the PCP/recycle coordinator On admission blood pressure was 195/121. Did improve with labetalol 10 mg IV x2 and hydralazine Patient was started on lisinopril 20 mg daily and Coreg 6.25 mg daily. Has had good blood pressure control in the so far TTE: EF 65%, normal LV size and systolic function. Severe concentric LVH. Consider hydrochlorothiazide versus CCB for additional hypertension control if needed Blood pressure improved with above Continue to follow Patient reports "I do not need these ", and when medical presentation and case is discussed "I do not have any strokes " (2) Hypertensive encephalopathy: Encephalopathy, suspected hypertensive with CVA Patient acutely confused on admission - CT-H: There are age-related involutional changes noting moderate to advanced subcortical and periventricular microangiopathic change. Chronic appearing infarcts are noted in the basal ganglia bilaterally. There is no hemorrhage, mass effect, or evidence of acute territorial ischemia by CT criteria. Rodriguez- white matter differentiation is preserved. No extra-axial fluid collection is seen. Above consistent with chronic hypertensive infarcts Patient with worsened encephalopathy morning of 2, appropriate but again confused. No focal neurologic deficits. - MRIB: An acute lacunar infarct within the posterior limb of the left internal capsule measuring 6 mm. Atrophy, microvascular ischemic changes, and old infarcts as described above. The study is limited from a technical standpoint as the patient was unable to complete the entire examination. No signs of infection, UA unremarkable, no leukocytosis, sodium normal, potassium 3.1 and repleted, glucose 102, creatinine normal, troponin no longer uptrending with echo as above Continue hypertensive control. Evidence of concentric hypertrophy on echo consistent with ongoing uncontrolled hypertension prior to admission - Aspirin/Plaavix x3 weeks then --> aspirin (3) CVA (cerebral vascular accident): CT, MRI as above Triglyceride 231, cholesterol 209, LDL 128, HDL 35 TTE as above, normal EF but with concentric hypertrophy Started atorvastatin 40 mg Continue DAPT Hypertension control as noted (4) Cerebrovascular disease: (5) Ambulatory dysfunction: ? General decline versus acute in the setting of encephalopathy & with CVA Continue to follow Displays deficits in awareness, transfers, ambulation and overall mobility. - Anticipate need for rehab, family prefers [facility] but considering home with 24/7 care. Reported would like to revisit tomorrow as concerns today for ongoing encephalopathy, improving as above (6) Abnormal TSH: TSH mildly elevated with normal T4, total T3 pending Suspect subclinical hypothyroid (7) Elevated troponin: No longer uptrending a.m. 08/27/2021 Suspect demand in the setting of hypertensive urgency Echo normal as above No ST segment changes on EKG (8) Medical non-compliance: Perr admitting provider:" Lengthy discussion with patient regarding the importance of medical compliance and the fact that his noncompliance with his antihypertensive medications is likely the cause to his old stroke which fortunately has left him without sequela * He is well aware of the complications of continued medical noncompliance * I am not convinced that he will take his medications but he has agreed to take the medications as outlined and stay overnight at least tonight" 08/27 patient is agreeable to medications, but has poor insight into his condition and is still acutely confused in conversation is limited by this. 08/28 conversation limited by acute but improving encephalopathy as above. (9) CAD (coronary artery disease): Patient self stopped all medications 06/15 Continue medications (KETAN, beta-sherine, statin, aspirin as above) Echo as above Outpatient follow-up with cardiology Discharge Plan Discharge Items Patient Disposition: Home - Home Health Services Reason For Visit: HYPERTENSIVE URGENCY AND ENCEPHALOPATHY Discharge Diagnosis: Stroke, Hypertension, Acute encephalopathy Condition on Discharge: Fair Activity: As commented below Lifting: Gradually increase as tolerated Bathing: No limitations Exercise/Sports: Gradually increase as tolerated Exercise Comment: with home physical and occupational therapy Non-emergency contact: Primary Care Provider Call non-emergency contact if: you have any medication questions Follow-up/Referrals: PCP,NO [Primary Care Provider] - Diet: Heart Healthy Addtl Attending Provider Instructions: You were admitted to the hospital and found to have a stroke. You have evidence on your brain scans of multiple old strokes as well. It is very important that you take all of the medications prescribed to you to help prevent future strokes. You should take the Plavix along with the aspirin for the next 3 weeks, then STOP the Plavix and only take the aspirin daily. You were started on two blood pressure medications (carvedilol and lisinopril), and a cholesterol lowering medication called atorvastatin. You were also started on thiamine to help with brain health. Your PCP should order you a 30 day cardiac event monitor to look for abnormal heart rhythms such as atrial fibrillation or atrial flutter that can increase your risk for stroke. Please follow up with your new primary care physician within 1-2 weeks. Risk Factors for Stroke: You can reduce your chances of stroke by working with your medical provider to adopt a healthy lifestyle. Some specific ways to lower your chance of stroke are: * If you are a smoker, now is the time to stop smoking cigarettes * If you are diabetic, improve the control of your blood sugars * Avoid excessive amounts of alcohol * Control high blood pressure * Lose weight if you are overweight * Be sure to lead an active lifestyle * Eat a healthy diet low in salt, cholesterol and fat You should know about other risk factors for stroke that you are unable to control. These include: * Age 55 years or older * Male gender * Certain racial groups: , or / * Family History of Stroke, Mini stroke or Heart Attack * Sickle Cell Disease Follow Up: It is important for you to keep your follow up appointments with your medical provider. Who to Call and When: Medical Emergencies: Call 911 immediately if you experience any of the following warning signs and symptoms of Stroke: * Sudden numbness or weakness of the face, arm or leg, especially on one side of the body * Sudden confusion, trouble speaking or understanding * Sudden trouble seeing in one or both eyes * Sudden trouble walking, dizziness, loss of balance or coordination * Sudden severe headache with no cause Do not delay calling 911 if you experience any warning signs or symptoms of a stroke. Delay in seeking medical attention may affect what treatments can be given to you. . Pending Studies at Discharge: Yes (Vitamin B1 (thiamine) level, RPR (syphilis)) Stand-Alone Forms: [facility], Smoking Cessation Medications and DC Order Prescriptions: New atorvastatin 40 mg Tablet 40 mg PO QAM Qty: 30 RF: 0 carvedilol 6.25 mg Tablet 6.25 mg PO BID Qty: 60 RF: 0 lisinopril 20 mg Tablet 20 mg PO QAM Qty: 30 RF: 0 thiamine HCl (vitamin B1) 100 mg Tablet 100 mg PO QAM Qty: 30 RF: 0 clopidogrel 75 mg Tablet 75 mg PO QAM Qty: 20 RF: 0 aspirin 81 mg Tablet,Delayed Release (Dr/Ec) 81 mg PO QAM Qty: 30 RF: 0 Discharge Orders: Discharge Order (Routine); Ordered 08/29/21 Ordered By: Mary Kay De Leon Admission Data Admit Date/Time: 08/28/21 10:58 Attending Provider: Mary Kay De Leon Admit Provider: Taj Calderon Primary Care Provider: PCP,NO Other Providers: Taj Calderon ; [facility] Coding Diagnoses Hypertensive urgency I16.0 Hypertensive encephalopathy I67.4 CVA (cerebral vascular accident) I63.9 Cerebrovascular disease I67.9 Ambulatory dysfunction R26.2 Abnormal TSH R79.89 Elevated troponin R77.8 Medical non-compliance Z91.19 CAD (coronary artery disease) I25.10
[2021-08-29 12:31] VITALS: BP 161/90; PULSE 68; TEMP 98.4; O2SAT 95
[2021-08-29] MEDS ORDERED: COVID-19 VAC,AD26(JANSSEN)/PF 0.5 ML SYR IM ONE (13:30)
== END 2021-08-29 14:56 | disposition home health service (06) | DRG 77 ==
LOC: ED 10:49 → EDINP 10:49 → SUATTDRO 16:06 → 1E 19:30 → SUATTDRO 08-28 10:58

== ENCOUNTER 2022-05-10 14:14 | Inpatient (IN) ==
[2022-05-10 15:32] LABS: Basophils # (auto) 0.02 K/uL (0-0.2); Basophils % (auto) 0.2 %; Eosinophils # (auto) 0.17 K/uL (0-0.50); Hematocrit (blood only) 39.4 % (40.1-51.0); Hemoglobin 12.5 g/dl (14.0-18.0); Immature Granulocytes # (auto) 0.03 K/uL (0.00-0.02); Immature Granulocytes % (auto) 0.3 %; Lymphocytes # (auto) 1.38 K/uL (1.2-3.4); Lymphocytes % (auto) 15.9 %; Mean Corpuscular Hemoglobin 28.5 pg (25.0-34.0); Mean Corpuscular Hgb Conc 31.7 g/dL (32.0-36.0); Mean Platelet Volume 9.8 fL (9.4-12.4); Monocytes # (auto) 0.51 K/uL (0.24-0.82); Monocytes % (auto) 5.9 %; Neutrophils # (auto) 6.55 K/uL (1.4-6.5); Neutrophils % (auto) 75.7 %; Platelet Count 224 K/uL (130-400); RDW Coefficient of Variation 14.6 % (11.5-14.5); RDW Standard Deviation 47.4 fL (36.4-46.3); Red Blood Count 4.38 M/uL (4.63-6.08); White Blood Count 8.66 K/ul (4.8-10.8)
--- NOTE | 2022-05-10 15:51 | Electrocardiogram Report ---
Test Reason : Blood Pressure : / mmHG Vent. Rate : 096 BPM Atrial Rate : 234 BPM P-R Int : 000 ms QRS Dur : 076 ms QT Int : 364 ms P-R-T Axes : 000 002 208 degrees QTc Int : 459 ms Poor data quality, interpretation may be adversely affected Atrial fibrillation Possible Old Old Inferior infarct (cited on or before 20-APR-2022) Nonspecific T wave abnormality Lateral leads Abnormal ECG When compared with ECG of 20-APR-2022 17:00, No significant change Confirmed by Esau Garduno ([id number]) on 05/10/2022 3:51:02 PM Referred By: Confirmed By:Esau Garduno
[2022-05-10 15:53] LABS: Alanine Aminotransferase 12 U/L (7-52); Albumin Globulin Ratio 1.4 (0.9-2); Alkaline Phosphatase 91 U/L (34-104); Anion Gap 5 (3-11); Aspartate Aminotransferase 12 U/L (13-39); BUN Creatinine Ratio 15.5 (10-20); Bilirubin,Total 0.6 mg/dl (0.2-1.0); Blood Urea Nitrogen 20 mg/dl (6-23); Calcium 9.2 mg/dl (8.5-10.1); Carbon Dioxide 29 mmol/L (21-32); Chloride 111 mmol/L (98-107); Est GFR (African American) 60.7 ml/min; Est GFR (Non-African American) 52.4 ml/min; Globulin 2.9 gm/dl (2.5-4.0); Glucose 98 mg/dl (70-99(Fasting)); Potassium 4.2 mmol/L (3.5-5.1); Sodium 145 mmol/L (136-145); Total Protein 6.9 gm/dl (6.0-8.3)
--- NOTE | 2022-05-10 17:46 | XRay Report ---
XR chest 1V portable CLINICAL HISTORY: Dyspnea TECHNIQUE: Single frontal radiograph of the chest was obtained. Comparison: Comparison is made to chest radiograph 04/20/2022 FINDINGS: Median sternotomy wires are unchanged. Cardiomegaly is noted. There is prominence and cephalization o f the vasculature with Michael B lines seen. Airspace opacities are seen in the bilateral lower lungs. No evidence of pleural effusion or pneumothorax. IMPRESSION: Cardiomegaly and mild pulmonary edema, increased from prior exam. Bilateral lower lung predominant ai rspace opacity may represent atelectasis, pneumonia, aspiration, and/or alveolar edema. ACT 112: Negative or not required by law. Electronically signed by: Bennie Martin M.D. 05/10/2022 5:45 PM
[2022-05-10] MEDS ORDERED: FUROSEMIDE 40 MG/4 ML VIAL IV ONE (18:21)
[2022-05-10] MEDS ORDERED: NITROGLYCERIN 2% OINTMENT 30GM TUBE EXT STA (18:21)
[2022-05-10 19:25] LABS: Appearance Urine Clear (Clear); Bacteria Urine Automated Negative (Negative); Bilirubin Urine Negative (Negative); Blood Urine Negative (Negative); Color Urine Yellow; Epithelial Cell Urine Auto 0-5 /lpf (0-5); Glucose Urine UA Negative (Negative); Ketones Urine Trace (Negative); Leukocyte Esterase Urine Negative (Negative); Nitrite Urine Negative (Negative); Protein Urine 1+ (Negative); RBC Urine Automated 0-4 /hpf (0-4); Specific Gravity Urine 1.022 (1.000-1.030); Urobilinogen Urine Negative (Negative); pH Urine 5.5 (4.5-7.5)
[2022-05-10] MEDS ORDERED: LABETALOL HCL IV 5 MG/ML 20ML IV PRN ×2 (19:25→19:34)
--- NOTE | 2022-05-10 19:43 | Emergency Department Note ---
Impression & Plan SOB (shortness of breath), CHF (congestive heart failure), Elevated troponin ED Provider Note INFORMANT: Patient and family ED PROVIDER(S): Abel Schwab MD CHIEF COMPLAINT: Shortness of breath PLAN: Disposition: Admitted Condition: Good Outpatient prescription management: none Referral: None MEDICAL DECISION MAKING: Patient presented because of shortness of breath. He had oxygen requirements because of low saturations. He did well with supplemental nasal cannula oxygen. Stat chest x-ray and blood work were performed. He has findings consistent with CHF with an elevated BNP, abnormal chest x-ray, and peripheral edema. He was given Nitropaste as well as IV Lasix. I discussed further management in the hospital. Patient and family were in agreement. [facility] Patient was evaluated in the ER admitted for further management. Triage Nursing notes reviewed and agree them. Vital Signs: reviewed and remarkable for significant hypertension Differential diagnosis: Reactive airway disease, pneumonia, pneumothorax, COPD, CHF, infections, cardiac ischemia, pulmonary embolism, musculoskeletal, gastrointestinal, as well as other pathologies. Diagnostics interpreted by me: ECG: Twelve-lead ECG reveals possible A. fib at 96 bpm. Low voltage QRS. Lateral T wave inversions. Cardiac Monitoring: Cardiac monitoring ordered by me: The patient was placed on continuous cardiac monitoring and observed. It revealed an irregular tachycardic rhythm Imaging studies: Chest x-ray as below. Concerning for CHF. HPI: The patient is a 77year old male who presents to the Emergency Room with complaints of shortness of breath. This started a few weeks ago and is progressive. The patient also notes the following associated symptoms, lower extremity edema, dyspnea on exertion. Family also notes weakness. The patient has found no relieving factors. Current pain is rated as 0/10. Patient is a history of CABG and stroke pt denies LOC, headache, fevers, chills, diaphoresis, visual changes, neck pain, chest pain, nausea, vomiting, abdominal pain, back pain, melena, hematochezia, urinary symptoms, numbness, lymphadenopathy, rash, or other complaints. ROS: See above HPI for pertinent positives & negatives. A total of 10 systems reviewed and were otherwise negative. PAST MEDICAL HISTORY:See Below , CAD PAST SURGICAL HISTORY:See Below, CABG FAMILY HISTORY:See Below SOCIAL HISTORY:See Below, HOME MEDICATIONS:See Below ALLERGIES:See Below VITALS:See Below PHYSICAL EXAMINATION: GENERAL: Awake, alert, mildly dyspneic-appearing, in no distress HENT: Normocephalic, atraumatic. Oropharynx unremarkable. EYES: Normal conjunctiva. Sclera non-icteric. NECK: Inspection normal. Non-tender. Supple. No nuchal rigidity. FROM. No masses. RESPIRATORY: Clear to auscultation. No wheezes. No rales. Normal respiratory effort. CARDIAC: Borderline tachycardic rate. Irregular rhythm. No murmurs. No rubs. Extremities warm and well perfused. Pulses equal. No JVD. GI: Soft, non-distended. No tenderness to palpation. No rebound or guarding. No masses. RECTAL: Deferred. MUSCULOSKELETAL: Atraumatic. Chest examination reveals no tenderness. The back is symmetrical on inspection without obvious abnormality. There is no CVA tenderness to palpation. No joint edema. LOWER EXTREMITIES: Calves are equal size bilaterally and non-tender. 2+ edema. No discoloration. NEURO: Normal sensorium. No sensory or motor deficits noted. SKIN: No rash or jaundice noted. 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 Beliefs That Will Affect Care: None marital status: Current Living Situation: Spouse Current Living Situation Comment: spouse is having difficulty with his care/ failure to thrive current occupational status: retired Feels Safe at Home: Yes Safety Concerns: Feels Safe At This Time Assistive Devices: Glasses Allergies Allergies Allergy/AdvReac Type Severity Reaction Status Date / Time No Known Allergies Verified 05/10/22 18:25 Home Meds Home Medications Medication Instructions Recorded Confirmed apixaban 5 mg tablet (Eliquis) 5 mg PO BID 04/20/22 05/10/22 atorvastatin 80 mg tablet 80 mg PO QAM 04/20/22 05/10/22 lisinopril 20 mg tablet 20 mg PO HS 04/20/22 05/10/22 metoprolol succinate 25 mg 37.5 mg PO AMHS 04/20/22 05/10/22 tablet,extended release 24 hr Prevagen 1 tab PO DAILY 05/10/22 05/10/22 Previous Rx's Medication Instructions Recorded aspirin 81 mg tablet,delayed 81 mg PO QAM #30 tabs 08/29/21 release thiamine HCl (vitamin B1) 100 mg 100 mg PO QAM #30 tabs 08/29/21 tablet Results & Data (ED) Vital Signs Vital Signs - 24 hr 05/10/22 14:54 05/10/22 17:29 05/10/22 17:34 Temperature 36.8 C Temperature Source Oral Pulse Rate 99 H Pulse Rate [Apical] 127 H Respiratory Rate 18 18 Respiratory Effort / Characteristics Non-Labored Spontaneous Respiratory Depth Normal Respiratory Pattern Regular Blood Pressure 165/108 H Blood Pressure [Left Arm] 209/162 H Blood Pressure Mean 127 Blood Pressure Mean [Left Arm] 177 Blood Pressure Position Sitting Pulse Oximetry 94 92 88 L Oxygen Delivery Method Nasal Cannula Room Air Room Air Nasal Cannula Oxygen Flow Rate 2 0 Sepsis Recent Fever Within 48 Hours No Sepsis New/Unexplained Change in Mental Status N/A Sepsis Action Taken by Nursing No Action Required Oxygen Flow Rate - Titration 2 Pulse Oximetry Post Tiitration 93 05/10/22 17:42 05/10/22 18:05 05/10/22 18:37 Temperature Temperature Source Pulse Rate Pulse Rate [Apical] 87 97 H Respiratory Rate 23 20 Respiratory Effort / Characteristics Respiratory Depth Respiratory Pattern Blood Pressure Blood Pressure [Left Arm] 149/98 H 178/136 H Blood Pressure Mean Blood Pressure Mean [Left Arm] 115 150 Blood Pressure Position Pulse Oximetry 94 98 95 Oxygen Delivery Method Nasal Cannula Room Air Room Air Oxygen Flow Rate 2 Sepsis Recent Fever Within 48 Hours Sepsis New/Unexplained Change in Mental Status Sepsis Action Taken by Nursing Oxygen Flow Rate - Titration Pulse Oximetry Post Tiitration 05/10/22 18:59 Temperature Temperature Source Pulse Rate Pulse Rate [Apical] 110 H Respiratory Rate 20 Respiratory Effort / Characteristics Non-Labored Respiratory Depth Normal Respiratory Pattern Blood Pressure Blood Pressure [Left Arm] 204/141 H Blood Pressure Mean Blood Pressure Mean [Left Arm] 162 Blood Pressure Position Pulse Oximetry 95 Oxygen Delivery Method Nasal Cannula Oxygen Flow Rate 2 Sepsis Recent Fever Within 48 Hours Sepsis New/Unexplained Change in Mental Status Sepsis Action Taken by Nursing Oxygen Flow Rate - Titration Pulse Oximetry Post Tiitration Laboratory Data Result diagrams: 05/11/22 05:23 05/11/22 05:23 Lab Results 05/10/22 05/10/22 05/10/22 Range/Units 15:15 15:15 15:15 WBC 8.66 (4.8-10.8) K/ul RBC 4.38 L (4.63-6.08) M/uL Hgb 12.5 L (14.0-18.0) g/dl Hct 39.4 L (40.1-51.0) % MCV 90.0 (80.0-100.0) fL MCH 28.5 (25.0-34.0) pg MCHC 31.7 L (32.0-36.0) g/dL RDW Std Deviation 47.4 H (36.4-46.3) fL RDW Coeff of Satya 14.6 H (11.5-14.5) % Plt Count 224 (130-400) K/uL MPV 9.8 (9.4-12.4) fL Immature Gran % (Auto) 0.3 % Neut % (Auto) 75.7 % Lymph % (Auto) 15.9 % [place] % (Auto) 5.9 % Eos % (Auto) 2.0 % Baso % (Auto) 0.2 % Neut # (Auto) 6.55 H (1.4-6.5) K/uL Lymph # (Auto) 1.38 (1.2-3.4) K/uL [place] # (Auto) 0.51 (0.24-0.82) K/uL Eos # (Auto) 0.17 (0-0.50) K/uL Baso # (Auto) 0.02 (0-0.2) K/uL Immature Gran # (Auto) 0.03 H (0.00-0.02) K/uL Sodium 145 (136-145) mmol/L Potassium 4.2 (3.5-5.1) mmol/L Chloride 111 H (98-107) mmol/L Carbon Dioxide 29 (21-32) mmol/L Anion Gap 5 (3-11) BUN 20 (6-23) mg/dl Creatinine 1.29 (0.6-1.4) mg/dl Est Cr Clr Drug Dosing Not Reportable Est GFR ( Amer) 60.7 ml/min Est GFR (Non-Af Amer) 52.4 ml/min BUN/Creatinine Ratio 15.5 (10-20) Glucose 98 (70-99(Fasting)) mg/dl Calcium 9.2 (8.5-10.1) mg/dl Total Bilirubin 0.6 (0.2-1.0) mg/dl AST 12 L (13-39) U/L ALT 12 (7-52) U/L Alkaline Phosphatase 91 (34-104) U/L Troponin I High Sens 24.1 H (0-20) pg/ml B-Natriuretic Peptide (0-100) pg/ml Total Protein 6.9 (6.0-8.3) gm/dl Albumin 4.0 (3.4-5.0) gm/dl Globulin 2.9 (2.5-4.0) gm/dl Albumin/Globulin Ratio 1.4 (0.9-2) Urine Color Urine Appearance (Clear) Urine pH (4.5-7.5) Ur Specific Mabel (1.000-1.030) Urine Protein (Negative) Urine Glucose (UA) (Negative) Urine Ketones (Negative) Urine Blood (Negative) Urine Nitrite (Negative) Urine Bilirubin (Negative) Urine Urobilinogen (Negative) Ur Leukocyte Esterase (Negative) Urine WBC (Auto) (0-5) /hpf Urine RBC (Auto) (0-4) /hpf U Hyaline Cast (Auto) (0-5) /lpf U Epithel Cells (Auto) (0-5) /lpf Urine Bacteria (Auto) (Negative) SARS-CoV-2, RNA, NAAT (NEGATIVE) 05/10/22 05/10/22 05/10/22 Range/Units 15:15 17:37 19:00 WBC (4.8-10.8) K/ul RBC (4.63-6.08) M/uL Hgb (14.0-18.0) g/dl Hct (40.1-51.0) % MCV (80.0-100.0) fL MCH (25.0-34.0) pg MCHC (32.0-36.0) g/dL RDW Std Deviation (36.4-46.3) fL RDW Coeff of Satya (11.5-14.5) % Plt Count (130-400) K/uL MPV (9.4-12.4) fL Immature Gran % (Auto) % Neut % (Auto) % Lymph % (Auto) % [place] % (Auto) % Eos % (Auto) % Baso % (Auto) % Neut # (Auto) (1.4-6.5) K/uL Lymph # (Auto) (1.2-3.4) K/uL [place] # (Auto) (0.24-0.82) K/uL Eos # (Auto) (0-0.50) K/uL Baso # (Auto) (0-0.2) K/uL Immature Gran # (Auto) (0.00-0.02) K/uL Sodium (136-145) mmol/L Potassium (3.5-5.1) mmol/L Chloride (98-107) mmol/L Carbon Dioxide (21-32) mmol/L Anion Gap (3-11) BUN (6-23) mg/dl Creatinine (0.6-1.4) mg/dl Est Cr Clr Drug Dosing Est GFR ( Amer) ml/min Est GFR (Non-Af Amer) ml/min BUN/Creatinine Ratio (10-20) Glucose (70-99(Fasting)) mg/dl Calcium (8.5-10.1) mg/dl Total Bilirubin (0.2-1.0) mg/dl AST (13-39) U/L ALT (7-52) U/L Alkaline Phosphatase (34-104) U/L Troponin I High Sens (0-20) pg/ml B-Natriuretic Peptide 375 H (0-100) pg/ml Total Protein (6.0-8.3) gm/dl Albumin (3.4-5.0) gm/dl Globulin (2.5-4.0) gm/dl Albumin/Globulin Ratio (0.9-2) Urine Color Yellow Urine Appearance Clear (Clear) Urine pH 5.5 (4.5-7.5) Ur Specific Mabel 1.022 (1.000-1.030) Urine Protein 1+ H (Negative) Urine Glucose (UA) Negative (Negative) Urine Ketones Trace H (Negative) Urine Blood Negative (Negative) Urine Nitrite Negative (Negative) Urine Bilirubin Negative (Negative) Urine Urobilinogen Negative (Negative) Ur Leukocyte Esterase Negative (Negative) Urine WBC (Auto) 1-5 (0-5) /hpf Urine RBC (Auto) 0-4 (0-4) /hpf U Hyaline Cast (Auto) 1-5 (0-5) /lpf U Epithel Cells (Auto) 0-5 (0-5) /lpf Urine Bacteria (Auto) Negative (Negative) SARS-CoV-2, RNA, NAAT NEGATIVE (NEGATIVE) Administered Medications Apixaban (Apixaban 5 Mg Tablet) 5 mg PO BID [facility] Stop: 06/09/22 23:09 Last Admin: 05/11/22 21:49 Dose: Not Given Documented By: JOSÉ ANTONIO Admin: 05/11/22 09:02 Dose: 5 mg Documented By: Admin: 05/11/22 00:25 Dose: 5 mg Documented By: JOSÉ ANTONIO Aspirin (Aspirin 81 Mg Ectab) 81 mg PO [facility] Stop: 06/10/22 08:59 Last Admin: 05/11/22 09:02 Dose: 81 mg Documented By: JOE Atorvastatin Calcium (Atorvastatin 40 Mg Tab) 80 mg PO [facility] Stop: 06/10/22 08:59 Last Admin: 05/11/22 09:03 Dose: 80 mg Documented By: JOE Furosemide (Furosemide 40 Mg/4 Ml Vial) [facility] [place]: 05/12/22 09:01 Last Admin: 05/11/22 09:03 Dose: 40 mg Documented By: JOE Labetalol HCl (Labetalol Hcl Iv 5 Mg/Ml 20ml) 10 mg IV Q4H PRN PRN Reason: HTN Stop: 06/09/22 19:24 Last Admin: 05/12/22 00:41 Dose: 10 mg Documented By: JOSÉ ANTONIO Co-signed By: DAJA Admin: 05/10/22 23:17 Dose: 10 mg Documented By: JOSÉ ANTONIO Co-signed By: ADRIANA Lisinopril (Lisinopril 20 Mg Tab) 20 mg PO [facility] Stop: 06/09/22 23:09 Last Admin: 05/11/22 21:49 Dose: Not Given Documented By: JOSÉ ANTONIO Admin: 05/11/22 00:24 Dose: 20 mg Documented By: JOSÉ ANTONIO Metoprolol Tartrate (Metoprolol Tartrate 25 Mg Tab) 25 mg PO QID [facility] Stop: 06/10/22 12:59 Last Admin: 05/11/22 21:49 Dose: Not Given Documented By: JOSÉ ANTONIO Admin: 05/11/22 17:33 Dose: 25 mg Documented By: Admin: 05/11/22 13:24 Dose: 25 mg Documented By: JOE Spironolactone (Spironolactone 25 Mg Tab) [facility] [place] Stop: 06/10/22 12:59 Last Admin: 05/11/22 13:25 Dose: 25 mg Documented By: JOE Thiamine HCl (Thiamine Hcl 100 Mg Tab) [facility] [place]: 06/10/22 08:59 Last Admin: 05/11/22 09:03 Dose: 100 mg Documented By: JOE Discontinued Medications Furosemide (Furosemide 40 Mg/4 Ml Vial) 40 mg IV ONE ONE Stop: 05/10/22 18:22 Last Admin: 05/10/22 18:32 Dose: 40 mg Documented By: CASH Haloperidol Lactate (Haloperidol Lactate 5 Mg/Ml 1 Ml Vial) 2.5 mg IM NOW STA Stop: 05/11/22 03:41 Last Admin: 05/11/22 21:23 Dose: Not Given Documented By: JOSÉ ANTONIO Haloperidol Lactate (Haloperidol Lactate 5 Mg/Ml 1 Ml Vial) 2.5 mg IM NOW STA Stop: 05/11/22 21:22 Last Admin: 05/11/22 21:28 Dose: 2.5 mg Documented By: JOSÉ ANTONIO Haloperidol Lactate (Haloperidol Lactate 5 Mg/Ml 1 Ml Vial) Confirm Administered Dose 5 mg .ROUTE .STK-MED ONE Stop: 05/11/22 21:25 Last Admin: 05/11/22 21:29 Dose: Not Given Documented By: JOSÉ ANTONIO Haloperidol Lactate (Haloperidol Lactate 5 Mg/Ml 1 Ml Vial) 2.5 mg IM NOW STA Stop: 05/12/22 02:43 Last Admin: 05/12/22 02:48 Dose: 2.5 mg Documented By: JOSÉ ANTONIO Haloperidol Lactate (Haloperidol Lactate 5 Mg/Ml 1 Ml Vial) Confirm Administered Dose 5 mg .ROUTE .STK-MED ONE Stop: 05/12/22 02:46 Last Admin: 05/12/22 02:48 Dose: Not Given Documented By: JOSÉ ANTONIO Labetalol HCl (Labetalol Hcl Iv 5 Mg/Ml 20ml) 10 mg IV NOW STA Stop: 05/10/22 20:23 Last Admin: 05/10/22 20:28 Dose: 10 mg Documented By: SALLY Co-signed By: QGV Metoprolol Succinate (Metoprolol Succ 25mg Ext Rel Tab) 37.5 mg PO AMHS FANNIE Stop: 06/09/22 23:09 Last Admin: 05/11/22 09:03 Dose: 37.5 mg Documented By: Admin: 05/11/22 00:24 Dose: 37.5 mg Documented By: JOSÉ ANTONIO Metoprolol Tartrate (Metoprolol Tartrate 1 Mg/Ml Vial) 2.5 mg IV NOW STA Stop: 05/10/22 20:37 Last Admin: 05/10/22 21:20 Dose: 2.5 mg Documented By: SALLY Metoprolol Tartrate (Metoprolol Tartrate 1 Mg/Ml Vial) 5 mg IV NOW ONE Stop: 05/11/22 02:47 Last Admin: 05/11/22 03:27 Dose: 5 mg Documented By: JOSÉ ANTONIO Metoprolol Tartrate (Metoprolol Tartrate 1 Mg/Ml Vial) 5 mg IV NOW STA Stop: 05/12/22 02:03 Last Admin: 05/12/22 02:28 Dose: 5 mg Documented By: JOSÉ ANTONIO Nitroglycerin (Nitroglycerin 2% Ointment 30gm Tube) 0.5 inch EXT NOW STA Stop: 05/10/22 18:22 Last Admin: 05/10/22 18:32 Dose: 0.5 inch Documented By: CASH Nitroglycerin (Nitroglycerin 2% Ointment 30gm Tube) 0.5 inch EXT Q6 FANNIE Stop: 06/09/22 23:29 Last Admin: 05/11/22 12:48 Dose: 0.5 inch Documented By: Admin: 05/11/22 05:55 Dose: 0.5 inch Documented By: JOSÉ ANTONIO Admin: 05/11/22 00:25 Dose: 0.5 inch Documented By: JOSÉ ANTONIO Olanzapine (Olanzapine 10 Mg/2.1 Ml Sdv) 5 mg IM NOW STA Stop: 05/11/22 14:04 Last Admin: 05/11/22 14:21 Dose: 5 mg Documented By: JOE Imaging Data Radiologist's Impression: Chest X-Ray 05/10/22 15:04 XR chest 1V portable CLINICAL HISTORY: Dyspnea TECHNIQUE: Single frontal radiograph of the chest was obtained. Comparison: Comparison is made to chest radiograph 04/20/2022 FINDINGS: Median sternotomy wires are unchanged. Cardiomegaly is noted. There is prominence and cephalization of the vasculature with Michael B lines seen. Airspace opacities are seen in the bilateral lower lungs. No evidence of pleural effusion or pneumothorax. IMPRESSION: Cardiomegaly and mild pulmonary edema, increased from prior exam. Bilateral lower lung predominant airspace opacity may represent atelectasis, pneumonia, aspiration, and/or alveolar edema. ACT 112: Negative or not required by law. Electronically signed by: Bennie Martin M.D. 05/10/2022 5:45 PM Discharge Plan Visit Data Chief Complaint: Shortness of Breath/Dyspnea Stated Complaint: SWOLLEN FEET, SOB ED Provider: Abel Schwab Discharge Problem: SOB (shortness of breath), CHF (congestive heart failure), Elevated troponin Patient Disposition: Admitted As Inpatient Discharge Instructions Interventions: ED Discharge Assessment Last Done: 05/10/22 22:51
--- NOTE | 2022-05-10 19:59 | History & Physical Report ---
Date of Service May 10, 2022 Assessment & Plan (1) CHF (congestive heart failure): Plan Likely acute CHF Mild trop elevation, likely demand ischemia from acute chf, pt w/ no chest pain. Patient presenting with progressive shortness of breath and BLE swelling BNP elevated, troponin mildly elevated, CXR with pulmonary edema, EKG with A. fib and heart rate in 90s. Patient received IV Lasix in the ED, with some improvement in his symptoms, requiring 2 L nasal cannula oxygen at bedside exam. Trend troponin, echo, cardiology consult, EKG in AM. IV Lasix in a.m., adjust further pending clinical evaluation in AM. Heart healthy diet, fluid restriction to 1.5 L/day. Hypertensive urgency: Blood pressure appears to be on the higher side up in past record review, patient claims taking his medications compliantly. We will continue home medication, patient on IV Lasix, will put in as needed labetalol. Continue to monitor. Other chronic medical conditions: History of CAD, history of CVA, dementia, HLD, PAF --->> continue with/resume home meds as and when appropriate. DVT prophylaxis: Patient on Eliquis Full code History of Present Illness Chief Complaint: Progressive shortness of breath Primary Care Provider: Светлана Jones MD 77-year-old male with PMH of HTN, CAD, [place], CABG x4 in 2009 in [place], HLD, obesity, ex-smoker quit 30 years ago, PAF on Eliquis, CVA, stage III CKD presented to our ED 05/10 with complaint of progressive shortness of breath and bilateral lower legs swelling. Patient is very hard of hearing, difficult to have bilateral communication in detail, hence history taken from the patient was confirmed by patient's and daughter present at bedside. Patient was having short of breath since last few days, worsening and progressive, does not use oxygen at home, also patient had been having swelling of the legs from around the same time with fluid retention. Patient also started having cough, mostly dry for around the same time, there was concern of fever 1 time few days ago but has not been measured. Patient denies chest pain or headache. Patient reports feeling weak and tired. Of note, patient's heart rate was elevated in the 120s few days ago, his metoprolol dose was increased by his PCP to 37.5 Mg twice a day. Patient quit smoking 30 years ago, denies alcohol use and recreational drug use. Patient does not have a living will, is full code, patient's was at bedside. 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 Medications were reviewed with the patient and his family at bedside. Allergies Allergy/AdvReac Type Severity Reaction Status Date / Time No Known Allergies Verified 05/10/22 18:25 Home Medications Medication Instructions Recorded Confirmed Type aspirin 81 mg tablet,delayed 81 mg PO QAM #30 tabs 08/29/21 05/10/22 Rx release thiamine HCl (vitamin B1) 100 mg 100 mg PO QAM #30 tabs 08/29/21 05/10/22 Rx tablet apixaban 5 mg tablet (Eliquis) 5 mg PO BID 04/20/22 05/10/22 History atorvastatin 80 mg tablet 80 mg PO QAM 04/20/22 05/10/22 History lisinopril 20 mg tablet 20 mg PO HS 04/20/22 05/10/22 History metoprolol succinate 25 mg 37.5 mg PO AMHS 04/20/22 05/10/22 History tablet,extended release 24 hr Prevagen 1 tab PO DAILY 05/10/22 05/10/22 History Past Med/Surg History Medical History CAD (coronary artery disease) Cerebrovascular disease Elevated troponin Hypertension Surgical History Hx of CABG Social History Smoking Status: Former smoker Tobacco Type: Cigarettes Hx Alcohol Use: No Hx Substance Use: No Preferred Language: Ecuadorean Communication Ability: Impaired District Captain Required: No Beliefs That Will Affect Care: None marital status: Current Living Situation: Spouse Current Living Situation Comment: spouse is having difficulty with his care/ failure to thrive current occupational status: retired Feels Safe at Home: Yes Assistive Devices: None Review of Systems Review of Systems: Negative otherwise mentioned in HPI. Physical Exam Physical Exam: GENERAL: Alert and awake. NAD, on 2L NC O2. HEENT: No pallor, no icterus. Pupils equal, round and reactive to light. Oral mucosa moist. NECK: No JVD, no neck masses. HEART: S1 and S2 heard. irregular rate and rhythm. No murmur, no gallop. Midsternotomy old healed scar. RESPIRATORY SYSTEM: Normal AP diameter. No accessory muscle use. No wheezing, bibasal crackles. ABDOMEN: Soft, bowel sounds present, nontender, no distention. CENTRAL NERVOUS SYSTEM: No facial droop. Speech is clear. Obeys simple commands. Moves extremities. EXTREMITIES: No edema, no erythema seen. Results & Data Results & Data ([facility]) Vital Signs (Past 12 Hours) Vital Signs Temp Pulse Pulse Resp BP BP Pulse Ox 05/10/22 18:59 110 H 20 204/141 H 95 05/10/22 18:37 97 H 20 178/136 H 95 05/10/22 18:05 87 23 149/98 H 98 05/10/22 17:42 94 05/10/22 17:34 88 L 05/10/22 17:29 127 H 18 209/162 H 92 05/10/22 14:54 36.8 C 99 H 18 165/108 H 94 O2 Del Method O2 Flow Rate 05/10/22 18:59 Nasal Cannula 2 05/10/22 18:37 Room Air 05/10/22 18:05 Room Air 05/10/22 17:42 Nasal Cannula 2 05/10/22 17:34 Room Air, Nasal Cannula 0 05/10/22 17:29 Room Air 05/10/22 14:54 Nasal Cannula 2 Code Status & VTE Plan VTE Prophylaxis Plan VTE Prophylaxis will be ordered: Yes
[2022-05-10] MEDS ORDERED: LABETALOL HCL IV 5 MG/ML 20ML IV STA (20:22)
[2022-05-10] MEDS ORDERED: METOPROLOL TARTRATE 1 MG/ML VIAL IV STA (20:36)
[2022-05-10] MEDS ORDERED: ALUMINUM/MAGNESIUM SUSP 30 ML UDC PO PRN (23:10)
[2022-05-10] MEDS ORDERED: MAGNESIUM HYDROXIDE SUSP 30 ML UDC PO PRN (23:10)
[2022-05-10] MEDS ORDERED: ACETAMINOPHEN 325 MG TAB PO PRN (23:10)
[2022-05-10] MEDS ORDERED: ONDANSETRON INJ 2 MG/ML 2 ML VIAL IV PRN (23:10)
[2022-05-10] MEDS: LABETALOL HCL IV 5 MG/ML 20ML IV PRN (23:17)
[2022-05-11] MEDS: lisinopril 20 MG TAB PO SCH ×2 (00:24→21:49)
[2022-05-11] MEDS: METOPROLOL SUCC 25MG EXT REL TAB PO SCH ×2 (00:24→09:03)
[2022-05-11] MEDS: NITROGLYCERIN 2% OINTMENT 30GM TUBE EXT SCH ×3 (00:25→12:48)
[2022-05-11] MEDS: APIXABAN 5 MG TABLET PO SCH ×3 (00:25→21:49)
[2022-05-11] MEDS ORDERED: METOPROLOL TARTRATE 1 MG/ML VIAL IV ONE (02:46)
[2022-05-11] MEDS ORDERED: HALOPERIDOL LACTATE 5 MG/ML 1 ML VIAL IM STA ×2 (03:40→21:21)
[2022-05-11 06:08] LABS: Hematocrit (blood only) 39.2 % (40.1-51.0); Hemoglobin 12.2 g/dl (14.0-18.0); Mean Corpuscular Hemoglobin 27.9 pg (25.0-34.0); Mean Corpuscular Hgb Conc 31.1 g/dL (32.0-36.0); Mean Corpuscular Volume 89.7 fL (80.0-100.0); Mean Platelet Volume 9.9 fL (9.4-12.4); Platelet Count 214 K/uL (130-400); RDW Coefficient of Variation 14.6 % (11.5-14.5); RDW Standard Deviation 47.7 fL (36.4-46.3); Red Blood Count 4.37 M/uL (4.63-6.08)
[2022-05-11 06:30] LABS: BUN Creatinine Ratio 17.6 (10-20); Calcium 8.9 mg/dl (8.5-10.1); Creatinine Clr Calc Pharmacy 62.2 ml/min; Est GFR (African American) 66.9 ml/min; Est GFR (Non-African American) 57.8 ml/min; Magnesium 2.1 mg/dl (1.7-2.4); Phosphorus 4.1 mg/dl (2.5-4.9); Potassium 3.9 mmol/L (3.5-5.1)
[2022-05-11 06:31] LABS: Troponin I High Sensitivity 23.9 pg/ml (0-20)
[2022-05-11] MEDS: ASPIRIN 81 MG ECTAB PO SCH (09:02)
[2022-05-11] MEDS: ATORVASTATIN 40 MG TAB PO SCH (09:03)
[2022-05-11] MEDS: THIAMINE HCL 100 MG TAB PO SCH (09:03)
[2022-05-11] MEDS: FUROSEMIDE 40 MG/4 ML VIAL IV SCH (09:03)
[2022-05-11] MEDS: METOPROLOL TARTRATE 25 MG TAB PO SCH ×3 (13:24→21:49)
[2022-05-11] MEDS: SPIRONOLACTONE 25 MG TAB PO SCH (13:25)
[2022-05-11] MEDS ORDERED: OLANZapine 10 MG/2.1 ML SDV IM STA (14:03)
--- NOTE | 2022-05-11 14:32 | Hospitalist Progress Note ---
Date of Service May 11, 2022 Assessment & Plan (1) CHF (congestive heart failure): Plan Acute on chronic diastolic heart failure. Mild trop elevation, likely demand ischemia from acute chf, pt w/ no chest pain. Patient presenting with progressive shortness of breath and BLE swelling BNP elevated, troponin mildly elevated, CXR with pulmonary edema, EKG with A. fib and heart rate in 90s. Plan; He had urine output of 2.8 L since admission. He is showing good response to current dose of diuretics. Continue on Lasix 40 IV daily Strict BRISEYDA's Daily weights Follow up CXR tomorrow am Hypertensive urgency: History of resistant hyper tension. His echo from last admission showed severe left ventricle hypertrophy He is currently on metoprolol, lisinopril and spironolactone and labetalol as needed Plan to monitor his blood pressure and try to titrate lisinopril as tolerated. Cardiology on board Behavioral issue (? Dementia related) In past admission patient was agitated requiring medication. His presentation is similar as well. Plan is to provide frequent reorientation, olanzapine as needed. We will consider psychiatry consult if he continues to be agitated. Other chronic medical conditions: History of CAD, history of CVA, dementia, HLD, PAF --->> continue with/resume home meds as and when appropriate. DVT prophylaxis: Patient on Eliquis Full code Admission and Anticipated Discharge Date Admission Date: May 10, 2022 Subjective Patient seen and examined at bedside. Is lying down on the bed comfortably. He is unsure why he is in the hospital. He was agitated last night requiring Haldol. Review of Systems Review of Systems: All systems reviewed & are unremarkable except as noted in Subjective Physical Exam Physical Exam: GENERAL: Alert and awake. NAD, on 2L NC O2. HEENT: No pallor, no icterus. Pupils equal, round and reactive to light. Oral mucosa moist. NECK: No JVD, no neck masses. HEART: S1 and S2 heard. irregular rate and rhythm. No murmur, no gallop. Midsternotomy old healed scar. RESPIRATORY SYSTEM: Normal AP diameter. No accessory muscle use. Bilateral crackles heard at bases. ABDOMEN: Soft, bowel sounds present, nontender, no distention. CENTRAL NERVOUS SYSTEM: No facial droop. Speech is clear. Obeys simple commands. Moves extremities. EXTREMITIES: No edema, no erythema seen. Results & Data Results & Data ([facility]) Vital Signs (Past 12 Hours) Vital Signs Temp Pulse Pulse Pulse Resp BP BP 05/11/22 11:46 36.6 C 107 H 18 176/107 H 05/11/22 09:00 05/11/22 09:01 36.5 C 88 18 179/96 H 05/11/22 03:15 98 H 05/11/22 02:30 36.8 C 120 H 18 178/121 H 05/11/22 03:27 125 H 178/121 H Pulse Ox O2 Del Method O2 Flow Rate 05/11/22 11:46 93 Nasal Cannula 2 05/11/22 09:00 Room Air 05/11/22 09:01 91 Room Air 05/11/22 03:15 05/11/22 02:30 92 Room Air 05/11/22 03:27 Laboratory Results Laboratory Results WBC 10.60 K/ul (4.8-10.8) 05/11/22 05:23 RBC 4.37 M/uL (4.63-6.08) L 05/11/22 05:23 Hgb 12.2 g/dl (14.0-18.0) L 05/11/22 05:23 Hct 39.2 % (40.1-51.0) L 05/11/22 05:23 MCV 89.7 fL (80.0-100.0) 05/11/22 05:23 MCH 27.9 pg (25.0-34.0) 05/11/22 05:23 MCHC 31.1 g/dL (32.0-36.0) L 05/11/22 05:23 RDW Std Deviation 47.7 fL (36.4-46.3) H 05/11/22 05:23 RDW Coeff of Staya 14.6 % (11.5-14.5) H 05/11/22 05:23 Plt Count 214 K/uL (130-400) 05/11/22 05:23 MPV 9.9 fL (9.4-12.4) 05/11/22 05:23 Immature Gran % (Auto) 0.3 % 05/10/22 15:15 Neut % (Auto) 75.7 % 05/10/22 15:15 Lymph % (Auto) 15.9 % 05/10/22 15:15 Jackson % (Auto) 5.9 % 05/10/22 15:15 Eos % (Auto) 2.0 % 05/10/22 15:15 Baso % (Auto) 0.2 % 05/10/22 15:15 Neut # (Auto) 6.55 K/uL (1.4-6.5) H 05/10/22 15:15 Lymph # (Auto) 1.38 K/uL (1.2-3.4) 05/10/22 15:15 Jackson # (Auto) 0.51 K/uL (0.24-0.82) 05/10/22 15:15 Eos # (Auto) 0.17 K/uL (0-0.50) 05/10/22 15:15 Baso # (Auto) 0.02 K/uL (0-0.2) 05/10/22 15:15 Immature Gran # (Auto) 0.03 K/uL (0.00-0.02) H 05/10/22 15:15 Sodium 145 mmol/L (136-145) 05/11/22 05:23 Potassium 3.9 mmol/L (3.5-5.1) 05/11/22 05:23 Chloride 109 mmol/L (98-107) H 05/11/22 05:23 Carbon Dioxide 28 mmol/L (21-32) 05/11/22 05:23 Anion Gap 8 (3-11) 05/11/22 05:23 BUN 21 mg/dl (6-23) 05/11/22 05:23 Creatinine 1.19 mg/dl (0.6-1.4) 05/11/22 05:23 Est Cr Clr Drug Dosing 62.2 ml/min 05/11/22 05:23 Est GFR ( Amer) 66.9 ml/min 05/11/22 05:23 Est GFR (Non-Af Amer) 57.8 ml/min 05/11/22 05:23 BUN/Creatinine Ratio 17.6 (10-20) 05/11/22 05:23 Glucose 88 mg/dl (70-99(Fasting)) 05/11/22 05:23 Calcium 8.9 mg/dl (8.5-10.1) 05/11/22 05:23 Phosphorus 4.1 mg/dl (2.5-4.9) 05/11/22 05:23 Magnesium 2.1 mg/dl (1.7-2.4) 05/11/22 05:23 Total Bilirubin 0.6 mg/dl (0.2-1.0) 05/10/22 15:15 AST 12 U/L (13-39) L 05/10/22 15:15 ALT 12 U/L (7-52) 05/10/22 15:15 Alkaline Phosphatase 91 U/L (34-104) 05/10/22 15:15 Troponin I High Sens 23.9 pg/ml (0-20) H 05/11/22 05:23 Troponin I High Sens Cancelled 05/11/22 05:23 B-Natriuretic Peptide 375 pg/ml (0-100) H 05/10/22 15:15 Total Protein 6.9 gm/dl (6.0-8.3) 05/10/22 15:15 Albumin 4.0 gm/dl (3.4-5.0) 05/10/22 15:15 Globulin 2.9 gm/dl (2.5-4.0) 05/10/22 15:15 Albumin/Globulin Ratio 1.4 (0.9-2) 05/10/22 15:15 Urine Color Yellow 05/10/22 19:00 Urine Appearance Clear (Clear) 05/10/22 19:00 Urine pH 5.5 (4.5-7.5) 05/10/22 19:00 Ur Specific [place] 1.022 (1.000-1.030) 05/10/22 19:00 Urine Protein 1+ (Negative) H 05/10/22 19:00 Urine Glucose (UA) Negative (Negative) 05/10/22 19:00 Urine Ketones Trace (Negative) H 05/10/22 19:00 Urine Blood Negative (Negative) 05/10/22 19:00 Urine Nitrite Negative (Negative) 05/10/22 19:00 Urine Bilirubin Negative (Negative) 05/10/22 19:00 Urine Urobilinogen Negative (Negative) 05/10/22 19:00 Ur Leukocyte Esterase Negative (Negative) 05/10/22 19:00 Urine WBC (Auto) 1-5 /hpf (0-5) 05/10/22 19:00 Urine RBC (Auto) 0-4 /hpf (0-4) 05/10/22 19:00 U Hyaline Cast (Auto) 1-5 /lpf (0-5) 05/10/22 19:00 U Epithel Cells (Auto) 0-5 /lpf (0-5) 05/10/22 19:00 Urine Bacteria (Auto) Negative (Negative) 05/10/22 19:00 SARS-CoV-2, RNA, NAAT NEGATIVE (NEGATIVE) 05/10/22 17:37 Impressions Chest X-Ray 05/10/22 15:04 XR chest 1V portable CLINICAL HISTORY: Dyspnea TECHNIQUE: Single frontal radiograph of the chest was obtained. Comparison: Comparison is made to chest radiograph 04/20/2022 FINDINGS: Median sternotomy wires are unchanged. Cardiomegaly is noted. There is prominence and cephalization of the vasculature with Michael B lines seen. Airspace opacities are seen in the bilateral lower lungs. No evidence of pleural effusion or pneumothorax. IMPRESSION: Cardiomegaly and mild pulmonary edema, increased from prior exam. Bilateral lower lung predominant airspace opacity may represent atelectasis, pneumonia, aspiration, and/or alveolar edema. ACT 112: Negative or not required by law. Electronically signed by: Bennie Martin M.D. 05/10/2022 5:45 PM
--- NOTE | 2022-05-11 15:36 | Cardiology Consultation ---
Date of Consultation May 11, 2022 Assessment & Plan (1) CHF (congestive heart failure): - Chest x-ray suggestive of interstitial edema. proBNP only minimally elevated. -May be related to poorly controlled hypertension. -Continue furosemide 40 mg IV daily. -Patient declined updated echo, but his family is going to help convince him to have the test. (2) Hypertension: - Per review of recent outpatient blood pressure measurements, blood pressure has historically been relatively well controlled, but with recent elevations both at home, and systolic blood pressure was in excess of 200 mmHg on presentation to the emergency room yesterday. -Metoprolol dose increased to 25 mg 4 times daily -Furosemide and spironolactone added -Continue prior home dose of lisinopril 20 mg daily. -He had received topical nitroglycerin which will be discontinued. -Given the patient's mental status, I have concerns with regards to whether not this is related to adherence, and I do not want to add too many new medications until we see how he responds to his typical medications (3) Paroxysmal atrial fibrillation: - Increase metoprolol dose to 25 mg 4 times daily. -As noted, when seen 6 months ago, paroxysmal atrial fibrillation had been detected, now perhaps persistent atrial fibrillation. -Low voltage noted on EKG on presentation, repeat tracing requested. -We will try again tomorrow to have the echocardiogram hopefully the patient will consent this time History of Present Illness Attending Physician: Oracio Stokes MD History of Present Illness Elpidio Rogers is a 77 year old male seen in cardiology consultation per the [facility] the evaluation of dyspnea on exertion due to suspected congestive heart failure decompensation. 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 Alvarez of your practice. The patient has an apparent history of vascular dementia and he is also hard of hearing. History for the most part obtained from interview with his spouse, Mellissa. The patient's daughter was also at the bedside at the time my assessment. Patient has apparently had worsening shortness of breath recently. There were concerns of elevated ventricular rates in the range of 120-130 bpm at home, and his blood pressure had been high. Patient is a somewhat poor historian, but endorses feeling short of breath with exertion, and lower extremity edema which is new over the last few days. Past Cardiac History: Coronary heart disease, myocardial infarction, CABG x4, 2009, at [facility] Former smoker History of paroxysmal atrial fibrillation, 5% atrial fibrillation burden noted on Zio patch monitor worn September,, prompting initiation of Eliquis at cardiology follow-up October, History of stroke episodes, with chart diagnosis of vascular dementia Hypertension Dyslipidemia with statin intolerance Allergies Allergy/AdvReac Type Severity Reaction Status Date / Time No Known Allergies Verified 05/10/22 18:25 Home Medications Medication Instructions Recorded Confirmed Type aspirin 81 mg tablet,delayed 81 mg PO QAM #30 tabs 08/29/21 05/10/22 Rx release thiamine HCl (vitamin B1) 100 mg 100 mg PO QAM #30 tabs 08/29/21 05/10/22 Rx tablet apixaban 5 mg tablet (Eliquis) 5 mg PO BID 04/20/22 05/10/22 History atorvastatin 80 mg tablet 80 mg PO QAM 04/20/22 05/10/22 History lisinopril 20 mg tablet 20 mg PO HS 04/20/22 05/10/22 History metoprolol succinate 25 mg 37.5 mg PO AMHS 04/20/22 05/10/22 History tablet,extended release 24 hr Prevagen 1 tab PO DAILY 05/10/22 05/10/22 History Patient History Medical History CAD (coronary artery disease) Cerebrovascular disease Elevated troponin Hypertension Surgical History Hx of CABG Social History Smoking Status: Former smoker Tobacco Type: Cigarettes Hx Alcohol Use: No Hx Substance Use: No Preferred Language: Sami Communication Ability: Impaired Fitter Up Required: No Beliefs That Will Affect Care: None marital status: Current Living Situation: Spouse Current Living Situation Comment: spouse is having difficulty with his care/ failure to thrive current occupational status: retired Feels Safe at Home: Yes Safety Concerns: Feels Safe At This Time Assistive Devices: Glasses Review of Systems Review of Systems: Unobtainable due to cognitive status Physical Exam Physical Exam: Temp Pulse Resp BP Pulse Ox O2 Del Method O2 Flow Rate 36.6 C 107 H 18 176/107 H 93 2 05/11/22 11:46 05/11/22 11:46 10/18/22 11:46 05/11/22 11:46 05/11/22 11:46 05/11/22 11:46 05/11/22 11:46 Constitutional: + obese; no acute distress Respiratory: no respiratory distress and no retractions Auscultation: + diminished lung sounds (Mildly reduced breath sounds bilaterally at the bases), + crackles and + rales Cardiovascular: Rate/Rhythm: + irregularly irregular; not tachycardic Heart Sounds: no murmur Extremities: + edema (1+ bilateral lower extremity edema) Gastrointestinal (Abdomen): normal bowel sounds, soft, nontender, no hepatosplenomegaly Neurologic: No focal deficits, however cognitive impairment noted Results & Data ([facility]) Laboratory Results Cardiac Enzymes 05/10/22 05/10/22 05/10/22 Range/Units 15:15 15:15 15:15 AST 12 L (13-39) U/L Troponin I High Sens 24.1 H (0-20) pg/ml B-Natriuretic Peptide 375 H (0-100) pg/ml 05/10/22 05/11/22 05/11/22 Range/Units 23:43 05:23 05:23 AST (13-39) U/L Troponin I High Sens 27.6 H 23.9 H Cancelled (0-20) pg/ml B-Natriuretic Peptide (0-100) pg/ml Coagulation 05/10/22 Range/Units 15:15 B-Natriuretic Peptide 375 H (0-100) pg/ml CBC 05/10/22 05/11/22 Range/Units 15:15 05:23 WBC 8.66 10.60 (4.8-10.8) K/ul RBC 4.38 L 4.37 L (4.63-6.08) M/uL Hgb 12.5 L 12.2 L (14.0-18.0) g/dl Hct 39.4 L 39.2 L (40.1-51.0) % Plt Count 224 214 (130-400) K/uL Neut # (Auto) 6.55 H (1.4-6.5) K/uL Lymph # (Auto) 1.38 (1.2-3.4) K/uL Swift # (Auto) 0.51 (0.24-0.82) K/uL Eos # (Auto) 0.17 (0-0.50) K/uL Baso # (Auto) 0.02 (0-0.2) K/uL Comprehensive Metabolic Panel 05/10/22 05/11/22 Range/Units 15:15 05:23 Sodium 145 145 (136-145) mmol/L Potassium 4.2 3.9 (3.5-5.1) mmol/L Chloride 111 H 109 H (98-107) mmol/L Carbon Dioxide 29 28 (21-32) mmol/L BUN 20 21 (6-23) mg/dl Creatinine 1.29 1.19 (0.6-1.4) mg/dl Glucose 98 88 (70-99(Fasting)) mg/dl Calcium 9.2 8.9 (8.5-10.1) mg/dl AST 12 L (13-39) U/L ALT 12 (7-52) U/L Alkaline Phosphatase 91 (34-104) U/L Total Protein 6.9 (6.0-8.3) gm/dl Albumin 4.0 (3.4-5.0) gm/dl Diagnostic Findings EKG performed 05/10/2022: Atrial fibrillation at 96 bpm, and age-indeterminate inferior infarction cannot be excluded. Summary chest x-ray 05/10/2022: Cardiomegaly and mild pulmonary edema, increased from prior exam. Bilateral lower lung predominant airspace opacity may represent atelectasis, pneumonia, aspiration, and/or alveolar edema. Summary of transthoracic echocardiogram performed 08/27/2021: LVEF 65 -70%, severe concentric left ventricular hypertrophy, mitral valve sclerosis without stenosis (1) Hypertension Hypertension type: unspecified Qualified Code(s): I10 - Essential (primary) hypertension
--- NOTE | 2022-05-11 16:44 | Communication Note ---
Date of Service: May 11, 2022 Repeat EKG with findings of improved voltage (now normal) with rate controlled atrial fibrillation, lateral T wave changes. Compared to 04/20/2022, lateral ST changes noted at that time as well.
[2022-05-11] MEDS ORDERED: HALOPERIDOL LACTATE 5 MG/ML 1 ML VIAL ONE (21:24)
[2022-05-12] MEDS: LABETALOL HCL IV 5 MG/ML 20ML IV PRN ×2 (00:41→06:25)
[2022-05-12] MEDS ORDERED: METOPROLOL TARTRATE 1 MG/ML VIAL IV STA ×2 (02:02→09:16)
[2022-05-12] MEDS ORDERED: HALOPERIDOL LACTATE 5 MG/ML 1 ML VIAL IM STA (02:42)
[2022-05-12] MEDS ORDERED: HALOPERIDOL LACTATE 5 MG/ML 1 ML VIAL ONE (02:45)
[2022-05-12] MEDS: FUROSEMIDE 40 MG/4 ML VIAL IV SCH ×2 (03:20→12:04)
[2022-05-12] MEDS ORDERED: LABETALOL HCL IV 5 MG/ML 20ML IV STA (03:29)
[2022-05-12] MEDS ORDERED: methylPREDNISolone 40 MG in SYRINGE 0 ML IV ONE (03:30)
[2022-05-12] MEDS: NITROGLYCERIN 2% OINTMENT 30GM TUBE EXT SCH ×3 (04:00→17:02)
[2022-05-12 04:08] LABS: iSTAT Allen Test Pass; iSTAT Arterial Blood Gas HCO3 33 meg/L (19-24); iSTAT Arterial Blood Gas pCO2 62 mmHg (35-46); iSTAT Arterial Blood Gas pH 7.33 (7.35-7.45); iSTAT Arterial Blood Gas pO2 < 32 mmHg (80-95); iSTAT Carbon Dioxide 35 mmol/L (24-31); iSTAT Site L Radial
[2022-05-12 04:09] LABS: iSTAT Allen Test Pass; iSTAT Art Bld Gas pCO2 Correct 45 mmHg (35-46); iSTAT Art Bld Gas pH Corrected 7.439 (7.35-7.45); iSTAT Arterial Blood Gas HCO3 30 meg/L (19-24); iSTAT Arterial Blood Gas pCO2 45 mmHg (35-46); iSTAT Arterial Blood Gas pH 7.44 (7.35-7.45); iSTAT Arterial Blood Gas pO2 87 mmHg (80-95); iSTAT Arterial Blood Gas pO2 C 87; iSTAT Carbon Dioxide 32 mmol/L (24-31); iSTAT Hematocrit 41 % (42-52); iSTAT Hemoglobin 13.9 g/dl (14.0-18.0); iSTAT Potassium 4.4 mmol/L (3.3-5.0); iSTAT Site L Radial; iSTAT Sodium 142 mmol/L (135-144)
[2022-05-12 04:09] LABS: iSTAT Site L Radial; iSTAT Venous Carbon Dioxide 32 mmol/L (24-31)
[2022-05-12] MEDS ORDERED: OPTIRAY 320 500ml IV ONE (04:56)
[2022-05-12 06:10] LABS: Hematocrit (blood only) 41.5 % (40.1-51.0); Hemoglobin 13.4 g/dl (14.0-18.0); Mean Corpuscular Hemoglobin 28.2 pg (25.0-34.0); Mean Corpuscular Hgb Conc 32.3 g/dL (32.0-36.0); Mean Corpuscular Volume 87.4 fL (80.0-100.0); Platelet Count 227 K/uL (130-400); RDW Coefficient of Variation 14.4 % (11.5-14.5); RDW Standard Deviation 45.4 fL (36.4-46.3); Red Blood Count 4.75 M/uL (4.63-6.08); White Blood Count 14.03 K/ul (4.8-10.8)
[2022-05-12 06:43] LABS: Troponin I High Sensitivity 34.5 pg/ml (0-20)
[2022-05-12 06:49] LABS: Acanthocytes 1+; Basophils # (auto) 0.03 K/uL (0-0.2); Basophils % (auto) 0.2 %; Echinocytes 1+; Eosinophils # (auto) 0.05 K/uL (0-0.50); Eosinophils % (auto) 0.4 %; Immature Granulocytes # (auto) 0.05 K/uL (0.00-0.02); Immature Granulocytes % (auto) 0.4 %; Lymphocytes % (auto) 4.3 %; Monocytes # (auto) 0.35 K/uL (0.24-0.82); Monocytes % (auto) 2.5 %; Neutrophils # (auto) 12.95 K/uL (1.4-6.5); Neutrophils % (auto) 92.2 %
[2022-05-12 06:57] LABS: BUN Creatinine Ratio 19.1 (10-20); Calcium 9.2 mg/dl (8.5-10.1); Creatinine Clr Calc Pharmacy 56.6 ml/min; Est GFR (African American) 59.6 ml/min; Est GFR (Non-African American) 51.4 ml/min; Potassium 3.8 mmol/L (3.5-5.1)
--- NOTE | 2022-05-12 07:53 | CT Scan Report ---
CT soft tissue neck wo/w con CLINICAL HISTORY: stridor COMPARISON STUDY: No previous studies for comparison. TECHNIQUE: Axial images of the neck were obtained before and after intravenous administration of 110 cc of Optiray 320 IV. Sagittal and coronal reconstructions were viewed. Automated exposure control wa s utilized for the study. A dose lowering technique was utilized adhering to the principles of ALARA . FINDINGS: This exam is moderately compromised by motion artifact. Atrophy is noted within visualized portions of the brain parenchyma. A nasopharyngeal tube is in place. The epiglottis is normal. There is no cervical lymphadenopathy. There is no fluid collection within the neck to suggest an abscess. T here is no soft tissue gas. The parotid and submandibular glands are unremarkable. There is no prever tebral edema. The chest CT will be reported separately. Bilateral pleural effusions are better depict ed on that exam. No acute fracture or suspicious lesion within the cervical spine is present. IMPRESSION: 1. No acute process within the neck by CT. 2. Exam compromised by motion artifact. ACT 112: Negative or not required by law. Electronically signed by: Arsalan Garcia M.D. 05/12/2022 7:51 AM
--- NOTE | 2022-05-12 08:03 | XRay Report ---
XR chest 1V portable CLINICAL HISTORY: Congestive heart failure. COMPARISON STUDY: Chest radiograph May 10, 2022. FINDINGS: There are small bilateral pleural effusions. No pneumothorax is present. Median sternotomy wires are noted. Cardiomegaly is unchanged. Moderate pulmonary edema has progressed since prior exam. IMPRESSION: Progression of pulmonary edema. Small bilateral pleural effusions. ACT 112: Negative or not required by law. Electronically signed by: Arsalan Garcia M.D. 05/12/2022 8:02 AM
--- NOTE | 2022-05-12 08:16 | Electrocardiogram Report ---
Test Reason : Blood Pressure : / mmHG Vent. Rate : 093 BPM Atrial Rate : 120 BPM P-R Int : 000 ms QRS Dur : 080 ms QT Int : 362 ms P-R-T Axes : 000 017 234 degrees QTc Int : 450 ms Sinus rhythm Old Inferior infarct (cited on or before 20-APR-2022) Abnormal ECG When compared with ECG of 10-MAY-2022 15:06, T wave inversion more evident in Lateral leads Confirmed by Esau Garduno ([id number]) on 05/12/2022 8:16:14 AM Referred By: REFERRED SELF Confirmed By:Esau Garduno
--- NOTE | 2022-05-12 08:24 | CT Scan Report ---
CT ANGIOGRAM OF THE CHEST CLINICAL HISTORY: Dyspnea. Stridor. Hypoxia. COMPARISON STUDY: Chest x-ray dated 05/12/2022. TECHNIQUE: Following the IV administration of 110 cc of Optiray 320, CT angiogram of the chest was pe rformed from the upper abdomen to the thoracic inlet utilizing the pulmonary embolus protocol. Images are reviewed in the axial, sagittal, and coronal planes. 3-D MIPS images are created and assessed. I V contrast was administered without complication. A dose lowering technique was utilized adhering to the principles of ALARA. The examination is significantly degraded by motion artifact, as well as by streak artifact from the arms which could not be elevated above the chest. FINDINGS: Thyroid: Imaged portions of the thyroid gland are normal in size and attenuation. Thoracic aorta: There is atherosclerotic calcification of the thoracic aorta, which is normal in cristin yuly and demonstrates bovine variant arch anatomy. The thoracic aorta is not opacified. Pulmonary vasculature: The pulmonary trunk is normal in caliber. There are no filling defects identif ied in main, lobar, or segmental pulmonary branches to suggest pulmonary embolus. The distal segmenta l and subsegmental branches are not well assessed due to motion artifact. Heart: The patient is status post midline sternotomy. The heart is enlarged and without pericardial e ffusion. The coronary arteries are densely calcified. Lungs and pleural spaces: Evaluation of the lung parenchyma is significantly degraded by motion artif act. Diffuse intralobular septal thickening indicates congestive failure. Bilateral patchy airspace c onsolidation is seen in both lungs, greatest in the right lower lobe. There are small pleural effusio ns with dependent atelectasis. The trachea and central airways are clear. Mediastinum: There are numerous mildly enlarged mediastinal lymph nodes. These measure up to 13 mm sh ort axis. Nancy: Clear. Axillae: There is no axillary lymphadenopathy. Upper abdomen: Reflux of contrast in the IVC and hepatic veins suggests cardiac dysfunction. Partiall y visualized upper abdominal viscera is otherwise grossly unremarkable. Skeletal structures: The skeletal structures are osteopenic. Spondylotic change is seen in the thorac ic spine. No lytic or blastic bony lesions are seen. IMPRESSION: 1. Streak and motion compromised examination. 2. There is no evidence of pulmonary embolus in the main, lobar, or segmental pulmonary arteries. Not e evaluation of the peripheral branches is compromised by motion artifact. 3. Cardiomegaly with evidence of congestive failure. 4. There are bilateral airspace opacities/consolidation, most confluent in the right lower lobe. This likely represents pulmonary edema. Correlate clinically for evidence of a superimposed infectious/in flammatory pneumonitis. Radiographic follow-up to resolution is recommended. 5. Small pleural effusions. 6. Mildly enlarged mediastinal lymph nodes are nonspecific and likely reactive. 7. Additional findings as above. ACT 112: Negative or not required by law. Electronically signed by: Hunter Gracia M.D. 05/12/2022 8:21 AM
--- NOTE | 2022-05-12 08:57 | Electrocardiogram Report ---
Test Reason : Blood Pressure : / mmHG Vent. Rate : 124 BPM Atrial Rate : 129 BPM P-R Int : 000 ms QRS Dur : 084 ms QT Int : 320 ms P-R-T Axes : 000 -26 206 degrees QTc Int : 459 ms Supraventricular tachycardia Old Inferior infarct (cited on or before 20-APR-2022) Abnormal ECG When compared with ECG of 11-MAY-2022 16:06, Supraventricular tachycardia now present HR has increased by 31 bpm T wave inversion no longer evident in Anterolateral leads Confirmed by Esau Garduno ([id number]) on 05/12/2022 8:57:00 AM Referred By: REFERRED SELF Confirmed By:Esau Garduno
[2022-05-12] MEDS ORDERED: Nursing to Pharmacy Communication SCH (09:45)
[2022-05-12] MEDS ORDERED: FUROSEMIDE 40 MG/4 ML VIAL IV ONE (10:00)
--- NOTE | 2022-05-12 10:36 | Cardiology Progress Note ---
Date of Service May 12, 2022 Assessment & Plan (1) CHF (congestive heart failure): Plan: - Chest x-ray suggestive of interstitial edema. proBNP only minimally elevated. -May be related to poorly controlled hypertension. -Continue furosemide 40 mg IV daily. -Patient declined updated echo, but his family is going to help convince him to have the test. (2) Hypertension: Plan: - Per review of recent outpatient blood pressure measurements, blood pressure has historically been relatively well controlled, but with recent elevations both at home, and systolic blood pressure was in excess of 200 mmHg on presentation to the emergency room yesterday. -Metoprolol dose increased to 25 mg 4 times daily -Furosemide and spironolactone added -Continue prior home dose of lisinopril 20 mg daily. -He had received topical nitroglycerin which will be discontinued. -Given the patient's mental status, I have concerns with regards to whether not this is related to adherence, and I do not want to add too many new medications until we see how he responds to his typical medications (3) Paroxysmal atrial fibrillation: Plan: - Agree with topical nitroglycerin, IV medications given patient's change in mental status and inability to take oral medication. -As Eliquis therefore is on hold. -Patient has received several doses of IV labetalol, with improved blood pressure. -As noted, received 40 mg of IV furosemide at 3 AM, and another 40 mg at 9:58 AM, with noted significant urine output. -Hold oral metoprolol dose, and will give IV for the time being as a standing dose of 5 mg IV q6 hours. Admission and Anticipated Discharge Date Admission Date: May 10, 2022 Subjective Patient currently somnolent. He is on an oxime mask, pulse oximetry stable at present. Events of overnight last night discussed with the patient's registered nurse. Patient apparently refused his evening medications. As the night went on ongoing agitation noted prompting administration of Haldol 2.5 mg and then another 2.5 mg for total of 5 mg. Patient subsequently noted to have worsening pulse oximetry, respiratory distress, Solu-Medrol administered, stat CT angiogram of the chest consistent with pulmonary edema. Yu catheter placed. He received 40 mg of furosemide at 3 AM 05/12/2022, and another 40 mg at 9:58 AM. Topical nitroglycerin placed on the patient's right shoulder. Review of Systems Review of Systems: Unobtainable due to cognitive status Physical Exam Physical Exam: Temp Pulse Resp BP Pulse Ox O2 Del Method O2 Flow Rate 36.5 C 130 H 18 155/95 H 99 13 05/12/22 06:54 05/12/22 09:24 05/12/22 06:54 05/12/22 09:24 05/12/22 06:54 05/12/22 06:54 05/12/22 06:54 Constitutional: Somnolent Respiratory: no respiratory distress and no retractions Auscultation: + diminished lung sounds (Mildly reduced breath sounds bilaterally at the bases), + crackles and + rales Cardiovascular: Rate/Rhythm: + irregularly irregular; not tachycardic Heart Sounds: no murmur Extremities: + edema (1+ bilateral lower extremity edema) Gastrointestinal (Abdomen): normal bowel sounds, soft, nontender, no hepatosplenomegaly Genitourinary: Yu catheter in place draining clear yellow urine Results & Data ([facility]) Diagnostic Findings EKG performed today reveals atrial flutter at 124 bpm (1) Hypertension Hypertension type: unspecified Qualified Code(s): I10 - Essential (primary) hypertension
[2022-05-12] MEDS: ATORVASTATIN 40 MG TAB PO SCH (10:39)
[2022-05-12] MEDS: SPIRONOLACTONE 25 MG TAB PO SCH (10:39)
[2022-05-12] MEDS: APIXABAN 5 MG TABLET PO SCH (10:39)
--- NOTE | 2022-05-12 10:45 | Communication Note ---
Date of Service: May 12, 2022 Patient was agitated last night requiring couple of doses of im haldol 2.5mg. Later as he was tachyapneic and requiring oxygen was called to see the patient. Also he was having raspy sound/wheezing at throat.As he has chf. A dose of iv lasix given, and a dose of iv solumerol 40mg given. Patient was somewhat drowsy but opens eyes. Abg was done which was ok. CXr showed pul. congestion. Nursing staff placed Nasopharnygeal tube which improved raspy sound. He was also tachycardic and SBP >200 DBP >110. earlier got a dose of iv lopressor. A dose of labetolol given. Still BP high. Nitro paste 1inch was placed. CTA chest and CT soft tissue neck was done. CTA chest NO PE but consistent with CHF. CT Soft tissue neck unremarkable. Yu placed. Notified Am provider.To Follow labs.Close monitor. Thanks
[2022-05-12] MEDS: METOPROLOL TARTRATE 1 MG/ML VIAL IV SCH ×2 (11:40→17:01)
[2022-05-12] MEDS: THIAMINE HCL 100 MG TAB PO SCH (13:30)
[2022-05-12] MEDS: ASPIRIN 81 MG ECTAB PO SCH (13:30)
[2022-05-12] MEDS: METOPROLOL TARTRATE 25 MG TAB PO SCH (16:09)
--- NOTE | 2022-05-12 22:32 | Hospitalist Progress Note ---
Date of Service May 12, 2022 Assessment & Plan (1) CHF (congestive heart failure): Plan Acute on chronic diastolic heart failure. SOB Patient presenting with progressive shortness of breath and BLE swelling BNP elevated, troponin mildly elevated, CXR with pulmonary edema, EKG with A. fib and heart rate in 90s. CTA chest showed no evidence of pulmonary embolus in the main, lobar, or segmental pulmonary arteries. Cardiomegaly with evidence of congestive failure. There are bilateral airspace opacities/consolidation, most confluent in the right lower lobe. 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 metoprolol due to dysphagia Cardiology on board Continue IV metoprolol 5mg q6h Continue eliquis Hypertensive urgency: History of resistant hyper tension. His echo from last admission showed severe left ventricle hypertrophy He is currently on metoprolol, lisinopril and spironolactone and labetalol as needed Plan to monitor his blood pressure and try to titrate lisinopril as tolerated. Cardiology on board Behavioral issue (? Dementia related) In past admission patient was agitated requiring medication. His presentation is similar as well. Plan is to provide frequent reorientation, olanzapine as needed. We will consider psychiatry consult if he continues to be agitated. Other chronic medical conditions: History of CAD, history of CVA, dementia, HLD, PAF --->> continue with/resume home meds as and when appropriate. DVT prophylaxis: Patient on Eliquis Full code Admission and Anticipated Discharge Date Admission Date: May 10, 2022 Subjective Patient was seen and examined for follow-up of altered mental status and elevated heart rate Lying in bed confused with soft restraint Last night patient was very agitated required Haldo to calm him down His HR continues to be elevated Patient did not get his PO med due to drowsiness Nurse said family attempted to feed the patient that causes him to cough /choke Review of Systems Review of Systems: All systems reviewed & are unremarkable except as noted in Subjective Physical Exam Physical Exam: General- No acute distress Head- atraumatic Eyes- PERRL, EOMI, ENT- oropharynx clear Neck- supple, no JVD Lungs- + decreased breath sounds, + crackles Heart- irregular rhythm Abdomen- normal bowel sounds, soft, nontender Extremities- no calf tenderness Neuro- alert, confused PERRL, EOMI; no facial palsy; no dysarthria Skin- warm & dry Results & Data Results & Data ([facility]) Vital Signs (Past 12 Hours) Vital Signs Temp Pulse Pulse Resp BP BP Pulse Ox 05/12/22 20:21 36.8 C 133 H 20 154/112 H 100 05/12/22 19:38 05/12/22 17:01 131 H 148/105 H 05/12/22 16:34 131 H 05/12/22 16:26 36.2 C L 130 H 20 148/105 H 95 05/12/22 11:40 130 H 144/103 H 05/12/22 11:26 130 H 20 144/103 H 94 05/12/22 11:00 36.8 C 125 H 20 156/91 H 99 O2 Del Method O2 Flow Rate 05/12/22 20:21 Oxymask 10.0 05/12/22 19:38 Oxymask 10 05/12/22 17:01 05/12/22 16:34 05/12/22 16:26 Oxymask 11 05/12/22 11:40 05/12/22 11:26 Oxymask 05/12/22 11:00 Oxymask 11
[2022-05-13] MEDS: METOPROLOL TARTRATE 1 MG/ML VIAL IV SCH ×5 (00:09→19:44)
[2022-05-13] MEDS: NITROGLYCERIN 2% OINTMENT 30GM TUBE EXT SCH ×4 (00:28→17:40)
[2022-05-13 07:13] LABS: Hematocrit (blood only) 42.4 % (40.1-51.0); Hemoglobin 13.1 g/dl (14.0-18.0); Mean Corpuscular Hgb Conc 30.9 g/dL (32.0-36.0); Mean Corpuscular Volume 90.6 fL (80.0-100.0); Mean Platelet Volume 9.8 fL (9.4-12.4); Platelet Count 236 K/uL (130-400); RDW Coefficient of Variation 14.6 % (11.5-14.5); RDW Standard Deviation 47.7 fL (36.4-46.3); Red Blood Count 4.68 M/uL (4.63-6.08)
[2022-05-13 07:42] LABS: Anion Gap 8 (3-11); BUN Creatinine Ratio 25.2 (10-20); Blood Urea Nitrogen 34 mg/dl (6-23); Calcium 9.2 mg/dl (8.5-10.1); Carbon Dioxide 34 mmol/L (21-32); Chloride 105 mmol/L (98-107); Creatinine Clr Calc Pharmacy 53.4 ml/min; Est GFR (African American) 57.5 ml/min; Est GFR (Non-African American) 49.6 ml/min; Glucose 87 mg/dl (70-99(Fasting)); Magnesium 2.5 mg/dl (1.7-2.4); Sodium 147 mmol/L (136-145)
[2022-05-13] MEDS: THIAMINE HCL 100 MG TAB PO SCH ×2 (09:34→09:36)
[2022-05-13] MEDS: ASPIRIN 81 MG ECTAB PO SCH ×2 (09:34→09:36)
[2022-05-13] MEDS ORDERED: OLANZapine 10 MG/2.1 ML SDV IM STA ×2 (13:21→21:44)
[2022-05-13] MEDS ORDERED: HALOPERIDOL LACTATE 5 MG/ML 1 ML VIAL IM STA (16:05)
--- NOTE | 2022-05-13 18:27 | Cardiology Progress Note ---
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 -When he initially presented to the hospital cognitive impairment noted, but mental status otherwise intact, and able to take oral medications. -He has progressively declined. No longer agitated, but still not able to take oral medication. -Ideally I would like to have the information from a CT of the brain given his history of strokes and anticoagulation use leading up to the hospital stay, but I do not think his mental status would allow us to get a diagnostic image. -Continue supportive care. May need to consider infection work-up, will defer to hospitalist service. (2) Paroxysmal atrial fibrillation: Plan: - Patient with history of paroxysmal atrial fibrillation. He was in sinus rhythm at time of hospital stay in Nov, 2021, atrial fibrillation noted in March, and again this admission. -Rapid ventricular rate now present. -He is off of Eliquis due to inability to tolerate oral medications, given his mental status, I am hesitant to treat him with IV heparin or subcutaneous Lovenox for anticoagulation. As noted above, patient unable to cooperate for CT of the brain. -Continue IV metoprolol, dose increased to 5 mg IV every 4 hours. -Poor candidate for amiodarone at present as he is off anticoagulation (3) CHF (congestive heart failure): Plan: - Patient would not allow echocardiogram to be performed earlier this hospital stay. Study completed today with patient sleeping comfortably. LVEF lower limit of normal 50 to 55% with mild to moderate mitral regurgitation, no evidence of pulmonary hypertension, mild aortic valve sclerosis without stenosis. -Hypoxia still noted, but I am uncertain if this is on the basis of ongoing volume overload or just due to patient's somnolence. -Ideally, I would like to administer more IV furosemide, but his potassium is borderline low, and is unable to tolerate oral. Replace potassium IV , 20 mEQ. -Will consider IV furosemide tomorrow. DVT prophylaxis: Lovonox 40 SQ daily while off of Eliquis . Admission and Anticipated Discharge Date Admission Date: May 10, 2022 Subjective Patient seen in cardiology follow-up. Currently not agitated. Soft wrist restraints have been removed, but he still lethargic. Ongoing atrial fibrillation/flutter in the 120s to 130s noted despite metoprolol 5 mg IV every 6 hours. Blood pressure much improved. Physical Exam Constitutional: no acute distress Respiratory: no respiratory distress, no labored breathing and does not use accessory muscles Cardiovascular: Rate/Rhythm: + tachycardic and + irregularly irregular Heart Sounds: + murmur (1/6 systolic murmur) Extremities: + edema (1+ edema) Neurologic: Limited due to somnolence Results & Data ([facility]) Vital Signs (Past 12 Hours) Vital Signs Temp Pulse Pulse Resp BP BP Pulse Ox 05/13/22 17:39 130 H 118/63 05/13/22 15:00 37.0 C 108 H 18 118/63 97 05/13/22 11:36 36.6 C 124 H 18 120/75 93 05/13/22 11:20 132 H 120/88 05/13/22 11:16 36.8 C 132 H 18 120/88 92 05/13/22 08:30 132 H 05/13/22 08:30 05/13/22 07:57 36.4 C L 125 H 18 140/93 90 O2 Del Method O2 Flow Rate 05/13/22 17:39 05/13/22 15:00 05/13/22 11:36 Oxymask 9 05/13/22 11:20 05/13/22 11:16 Oxymask 7 05/13/22 08:30 05/13/22 08:30 Oxymask 7 05/13/22 07:57 Room Air Laboratory Results CBC 05/13/22 Range/Units 06:08 WBC 12.60 H (4.8-10.8) K/ul RBC 4.68 (4.63-6.08) M/uL Hgb 13.1 L (14.0-18.0) g/dl Hct 42.4 (40.1-51.0) % Plt Count 236 (130-400) K/uL Comprehensive Metabolic Panel 05/13/22 05/13/22 Range/Units 06:08 07:50 Sodium 147 H (136-145) mmol/L Potassium TNP 3.7 Chloride 105 (98-107) mmol/L Carbon Dioxide 34 H (21-32) mmol/L BUN 34 H (6-23) mg/dl Creatinine 1.35 (0.6-1.4) mg/dl Glucose 87 (70-99(Fasting)) mg/dl Calcium 9.2 (8.5-10.1) mg/dl Intake and Output 05/13/22 05/13/22 05/13/22 06:59 14:59 22:59 Intake Total 620 / 620 Output Total 100 / 1575 250 / 250 Balance -100 / -1575 370 / 370 Intake: Oral 620 / 620 Output: Urine Amount (Catheter) 100 / 1575 250 / 250 Yu/Indwelling 100 / 1575 250 / 250 Other: Weight 110 kg 110.9 kg Weight Measurement Method Built in [facility] Built in [facility] Patient Weight 05/14/22 06:59 Weight 110.9 kg
[2022-05-13] MEDS: POTASSIUM CHLORIDE / WTR 10 MEQ/100 ML PLCT IV SCH ×2 (18:40→19:43)
[2022-05-13] MEDS: ENOXAPARIN INJ 40 MG/0.4 ML SYR SQ SCH (19:44)
[2022-05-13] MEDS: LABETALOL HCL IV 5 MG/ML 20ML IV PRN (21:47)
--- NOTE | 2022-05-13 23:41 | Hospitalist Progress Note ---
Date of Service May 13, 2022 Assessment & Plan (1) CHF (congestive heart failure): Plan Acute on chronic diastolic heart failure. SOB Patient presenting with progressive shortness of breath and BLE swelling BNP elevated, troponin mildly elevated, CXR with pulmonary edema, EKG with A. fib and heart rate in 90s. CTA chest showed no evidence of pulmonary embolus in the main, lobar, or segmental pulmonary arteries. Cardiomegaly with evidence of congestive failure. There are bilateral airspace opacities/consolidation, most confluent in the right lower lobe. 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 metoprolol due to dysphagia Cardiology on board Continue IV metoprolol 5mg q6h Continue eliquis Hypertensive urgency: History of resistant hyper tension. His echo from last admission showed severe left ventricle hypertrophy He is currently on metoprolol, lisinopril and spironolactone and labetalol as needed Plan to monitor his blood pressure and try to titrate lisinopril as tolerated. Cardiology on board Behavioral issue (? Dementia related) In past admission patient was agitated requiring medication. His presentation is similar as well. Plan is to provide frequent reorientation, olanzapine as needed. We will consider psychiatry consult if he continues to be agitated. Other chronic medical conditions: History of CAD, history of CVA, dementia, HLD, PAF --->> continue with/resume home meds as and when appropriate. DVT prophylaxis: Patient on Eliquis Full code Admission and Anticipated Discharge Date Admission Date: May 10, 2022 Subjective Pt was seen and examined for follow up of tachycardia and altered mental status Lying in bed with no acute distress with family at bedside Lying in bed with no acute distress Spoke to Daughter and provided with details and answered all the questions Few hours later pt became agitated Review of Systems Review of Systems: All systems reviewed & are unremarkable except as noted in Subjective Physical Exam Physical Exam: General- agitated Head- atraumatic Eyes- PERRL, EOMI, ENT- oropharynx clear Neck- supple, no JVD Lungs- + decreased breath sounds, + crackles Heart- irregular rhythm Abdomen- normal bowel sounds, soft, nontender Extremities- no calf tenderness Neuro- alert, confused PERRL, EOMI; no facial palsy; no dysarthria Skin- warm & dry Results & Data Results & Data ([facility]) Vital Signs (Past 12 Hours) Vital Signs Temp Pulse Pulse Pulse Resp BP BP 05/13/22 22:32 36.9 C 134 H 22 114/82 05/13/22 20:16 167/117 H 05/13/22 19:44 136 H 162/127 H 05/13/22 19:37 36.9 C 136 H 22 162/127 H 05/13/22 17:39 130 H 118/63 05/13/22 15:00 37.0 C 108 H 18 118/63 Pulse Ox O2 Del Method O2 Flow Rate 05/13/22 22:32 96 Nasal Cannula 6 05/13/22 20:16 05/13/22 19:44 05/13/22 19:37 91 Nasal Cannula 4 05/13/22 17:39 05/13/22 15:00 97
[2022-05-14] MEDS: NITROGLYCERIN 2% OINTMENT 30GM TUBE EXT SCH ×5 (00:17→23:19)
[2022-05-14] MEDS: METOPROLOL TARTRATE 1 MG/ML VIAL IV SCH ×7 (00:19→23:21)
[2022-05-14 06:32] LABS: Hematocrit (blood only) 41.7 % (40.1-51.0); Hemoglobin 12.9 g/dl (14.0-18.0); Mean Corpuscular Hgb Conc 30.9 g/dL (32.0-36.0); Mean Corpuscular Volume 90.7 fL (80.0-100.0); Mean Platelet Volume 9.9 fL (9.4-12.4); Platelet Count 217 K/uL (130-400); RDW Coefficient of Variation 14.5 % (11.5-14.5); White Blood Count 9.81 K/ul (4.8-10.8)
[2022-05-14 06:41] LABS: BUN Creatinine Ratio 30.4 (10-20); Calcium 9.1 mg/dl (8.5-10.1); Creatinine Clr Calc Pharmacy 62.8 ml/min; Est GFR (African American) 69.8 ml/min; Est GFR (Non-African American) 60.2 ml/min; Potassium 4.1 mmol/L (3.5-5.1)
[2022-05-14] MEDS: ENOXAPARIN INJ 40 MG/0.4 ML SYR SQ SCH (09:40)
[2022-05-14] MEDS: THIAMINE HCL 100 MG TAB PO SCH (09:42)
[2022-05-14] MEDS: ASPIRIN 81 MG ECTAB PO SCH (09:42)
[2022-05-14] MEDS ORDERED: FUROSEMIDE INJ 20 MG/2 ML VIAL IV ONE (11:34)
--- NOTE | 2022-05-14 14:06 | Cardiology Progress Note ---
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 -He has progressively declined. -He iss unable to take oral medications -CT of the head obtained. Report pending. -Continue supportive care. May need to consider infection work-up, will defer to hospitalist service. (2) Paroxysmal atrial fibrillation: Plan: - Atrial fibrillation, at present , likely atrial flutter -Patient with history of paroxysmal atrial fibrillation. He was in sinus rhythm at time of hospital stay in Nov, 2021, atrial fibrillation noted in March, and again this admission. -Rapid ventricular rate now present. -He is off of Eliquis due to inability to tolerate oral medications, given his mental status, I am hesitant to treat him with IV heparin or subcutaneous Lovenox for anticoagulation. As noted above, patient unable to cooperate for CT of the brain. -Continue IV metoprolol, dose increased to 5 mg IV every 4 hours. -Poor candidate for amiodarone at present as he is off anticoagulation (3) CHF (congestive heart failure): Plan: - Patient would not allow echocardiogram to be performed earlier this hospital stay. Study completed 05/13/2022 with patient sleeping comfortably. LVEF lower limit of normal 50-55% with mild to moderate mitral regurgitation, no evidence of pulmonary hypertension, mild aortic valve sclerosis without stenosis. -Hypoxia still noted, but I am uncertain if this is on the basis of ongoing volume overload or just due to patient's somnolence. -Potassium improved to 4.1 today,Agree with furosemide 20 mg IV x1 DVT prophylaxis: Lovenox 40 SQ daily while off of Eliquis . Admission and Anticipated Discharge Date Admission Date: May 10, 2022 Subjective Patient seen in cardiology follow-up. Ongoing issues noted with his mental status. Does not answer questions. Ongoing tachycardia noted on telemetry, appears to be atrial flutter with rapid ventricular response. Physical Exam Physical Exam: Temp Pulse Resp BP Pulse Ox O2 Del Method O2 Flow Rate 36.9 C 132 H 18 149/115 H 94 6 05/14/22 11:15 05/14/22 12:28 05/14/22 11:15 05/14/22 12:28 05/14/22 11:15 05/14/22 11:15 05/14/22 11:15 Constitutional: + altered mental status Respiratory: Auscultation: + diminished lung sounds (Decreased breath sounds at the bases); no crackles and no rales Cardiovascular: Rate/Rhythm: + tachycardic Heart Sounds: no murmur Extremities: no edema Gastrointestinal (Abdomen): normal bowel sounds, soft, nontender, no hepatosplenomegaly Neurologic: + confused and + obtunded Genitourinary: no edema Results & Data ([facility]) Vital Signs (Past 12 Hours) Vital Signs Temp Pulse Pulse Resp BP BP BP 05/14/22 12:28 132 H 149/115 H 05/14/22 11:17 149/115 H 05/14/22 11:15 36.9 C 134 H 18 170/112 H 05/14/22 09:41 135 H 165/89 H 05/14/22 08:00 36.5 C 78 18 165/89 H 05/14/22 08:10 05/14/22 07:02 36.5 C 115 H 20 179/82 H 05/14/22 05:00 05/14/22 03:31 36.5 C 136 H 18 156/102 H Pulse Ox O2 Del Method O2 Del Method O2 Flow Rate 05/14/22 12:28 05/14/22 11:17 05/14/22 11:15 94 Nasal Cannula 6 05/14/22 09:41 05/14/22 08:00 97 05/14/22 08:10 Nasal Cannula 6 05/14/22 07:02 97 Nasal Cannula 6 05/14/22 05:00 Nasal Cannula 05/14/22 03:31 96 Room Air 6
[2022-05-14] MEDS: LABETALOL HCL IV 5 MG/ML 20ML IV PRN (14:51)
--- NOTE | 2022-05-14 16:59 | CT Scan Report ---
CT head/brain wo con CLINICAL HISTORY: confusion/drowsy Technique: Contiguous axial CT images of the head were acquired from the base of the skull to the [place] juancarlos without intravenous contrast administration. Images were viewed in brain, subdural and bone [facility]. Automated dose lowering techniques and/or adjustment according to patient size were utilized for this exam. Comparison: Comparison is made to CT head 04/20/2022 Findings: Areas of decreased attenuation are present in the periventricular and subcortical white matter bilate rally consistent with small vessel ischemic disease. Generalized cerebral atrophy with commensurate e nlargement of the ventricles, sulci, and cisterns is also present. There is no acute intracranial hem orrhage or evidence of acute territorial infarction. No shift of the midline structures, mass effect, or extra-axial abnormalities are shown. Atherosclerotic calcifications are present in the intracran ial segments of the internal carotid arteries. Old lacunar infarct in the right basal ganglia is unc hanged. Imaged portions of the paranasal sinuses and mastoid air cells are clear. The orbits appear normal. There are no acute fractures of the calvaria or scalp swelling. Impression: No acute intracranial hemorrhage, no evidence of acute territorial infarction or other acute intracra nial disease process. ACT 112: Negative or not required by law. Electronically signed by: Bennie Martin M.D. 05/14/2022 4:58 PM
--- NOTE | 2022-05-14 18:35 | Fluoroscopy Report ---
VIDEO SWALLOW STUDY CLINICAL HISTORY: Aspiration. COMPARISON STUDY: No priors. Fluoroscopy time: 2.7 minutes. FINDINGS: Fluoroscopic guidance is provided to the Department of speech pathology in performing a vid eo swallow study. The patient consumed barium impregnated pudding, cracker with paste, thickened liqu ids, and thin barium while the swallowing mechanism was observed in real-time. Sajan aspiration was s een with thin barium. There is pharyngeal penetration with aspiration seen with the mildly thickened liquids. There is pharyngeal penetration with aspiration seen with both the pudding and cracker with paste textures. IMPRESSION: Pharyngeal penetration and aspiration was seen with all sampled textures. See dedicated [facility] pathology report for detailed findings and recommendations. Dictated: 05/14/2022 5:02 PM Transcribed: 05/14/2022 6:26 PM Jeannette [id number] [facility] Electronically signed by: Hunter Gracia M.D. 05/14/2022 6:34 PM
--- NOTE | 2022-05-14 21:55 | Hospitalist Progress Note ---
Date of Service May 14, 2022 Assessment & Plan (1) CHF (congestive heart failure): Plan Acute on chronic diastolic heart failure. SOB Patient presenting with progressive shortness of breath and BLE swelling BNP elevated, troponin mildly elevated, CXR with pulmonary edema, EKG with A. fib and heart rate in 90s. CTA chest showed no evidence of pulmonary embolus in the main, lobar, or segmental pulmonary arteries. Cardiomegaly with evidence of congestive failure. There are bilateral airspace opacities/consolidation, most confluent in the right lower lobe. Echo showed no LV wall motion abnormality with ejection fraction 50 to 55% Continue oxygen supplement Will give lasix 20mg x1 Continue monitor I/O Elevated troponin Mostly due to CHF/Afib with RVR Continue Eliquis, aspirin, atorvastatin and metoprolol Continue monitor closely Encephalopathy CT head showed no acute intracranial finding Continue 1 to 1 observation stable Dysphagia Speech on board video swallow showed Pharyngeal penetration and aspiration was seen with all sampled textures. will discuss with family about permissive aspiration Continue aspiration precaution Paroxysmal A. 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 metoprolol due to dysphagia Cardiology on board Continue IV metoprolol 5mg q6h Eliquis has been on hold due to dysphagia Will start on lovenox BID since CT head negative Hypertensive urgency: History of resistant hyper tension. His echo from last admission showed severe left ventricle hypertrophy He is currently on metoprolol, lisinopril and spironolactone and labetalol as needed Plan to monitor his blood pressure and try to titrate lisinopril as tolerated. Cardiology on board Behavioral issue (? Dementia related) In past admission patient was agitated requiring medication. His presentation is similar as well. Plan is to provide frequent reorientation, olanzapine as needed. We will consider psychiatry consult if he continues to be agitated. Other chronic medical conditions: History of CAD, history of CVA, dementia, HLD, PAF --->> continue with/resume home meds as and when appropriate. DVT prophylaxis: Patient on Eliquis Full code Admission and Anticipated Discharge Date Admission Date: May 10, 2022 Subjective Pt was seen and examined for follow of confusion Lying in bed with one to one eval Pt is much calm today today Telemonitor showed Afib with rapid heart rate Denies any chest pain, palpitation, dizziness Review of Systems Review of Systems: All systems reviewed & are unremarkable except as noted in Subjective Physical Exam Physical Exam: General- agitated Head- atraumatic Eyes- PERRL, EOMI, ENT- oropharynx clear Neck- supple, no JVD Lungs- + decreased breath sounds, + crackles Heart- irregular rhythm Abdomen- normal bowel sounds, soft, nontender Extremities- no calf tenderness Neuro- alert, confused PERRL, EOMI; no facial palsy; no dysarthria Skin- warm & dry Results & Data Results & Data ([facility]) Vital Signs (Past 12 Hours) Vital Signs Temp Pulse Pulse Pulse Resp BP BP 05/14/22 19:53 145 H 168/89 H 05/14/22 19:07 145 H 20 05/14/22 16:10 126 H 113/86 05/14/22 16:01 37.0 C 126 H 24 05/14/22 15:06 122 H 167/113 H 05/14/22 14:38 134 H 05/14/22 14:38 36.9 C 129 H 20 191/122 H 05/14/22 12:28 132 H 149/115 H 05/14/22 11:17 05/14/22 11:15 36.9 C 134 H 18 170/112 H BP BP Pulse Ox O2 Del Method O2 Flow Rate 05/14/22 19:53 05/14/22 19:07 168/89 H 96 Nasal Cannula 5 05/14/22 16:10 05/14/22 16:01 113/86 95 Nasal Cannula 5.0 05/14/22 15:06 05/14/22 14:38 171/118 H 05/14/22 14:38 93 Nasal Cannula 6 05/14/22 12:28 05/14/22 11:17 149/115 H 05/14/22 11:15 94 Nasal Cannula 6
[2022-05-14] MEDS ORDERED: ACETAMINOPHEN 1,000 MG/100 ML VIAL IV PRN (23:49)
[2022-05-15] MEDS ORDERED: DIGOXIN 250 MCG in SYRINGE 9 ML IV ONE
[2022-05-15] MEDS: METOPROLOL TARTRATE 1 MG/ML VIAL IV SCH ×6 (03:29→23:20)
[2022-05-15] MEDS: NITROGLYCERIN 2% OINTMENT 30GM TUBE EXT SCH ×4 (05:06→23:20)
[2022-05-15] MEDS: ENOXAPARIN INJ 40 MG/0.4 ML SYR SQ SCH (08:53)
[2022-05-15] MEDS: ASPIRIN 81 MG ECTAB PO SCH (09:06)
[2022-05-15] MEDS: THIAMINE HCL 100 MG TAB PO SCH (09:06)
[2022-05-15 10:50] LABS: BUN Creatinine Ratio 26.1 (10-20); Calcium 9.2 mg/dl (8.5-10.1); Creatinine Clr Calc Pharmacy 64.8 ml/min; Est GFR (African American) 72.8 ml/min; Est GFR (Non-African American) 62.8 ml/min; Potassium 4.1 mmol/L (3.5-5.1)
[2022-05-15] MEDS ORDERED: FUROSEMIDE INJ 20 MG/2 ML VIAL IV ONE ×2 (10:59→18:00)
--- NOTE | 2022-05-15 13:06 | Cardiology Progress Note ---
Date of Service May 15, 2022 Assessment & Plan (1) Acute delirium: Plan: -Cognitive impairment attributed to vascular dementia. -Unable to take oral medications -CT of the head obtained. Report pending. -Continue supportive care. May need to consider infection work-up, will defer to hospitalist service. (2) Paroxysmal atrial fibrillation: Plan: - Telemetry demonstrates atrial flutter at 130 bpm. -Patient with history of paroxysmal atrial fibrillation. He was in sinus rhythm at time of hospital stay in Nov, 2021, atrial fibrillation noted in March, and again this admission. -Eliquis on hold due to inability to tolerate oral medications -CT of the brain without evidence of intracranial hemorrhage or acute territorial infarction. -Continue IV metoprolol, dose increased to 5 mg IV every 4 hours 05/15/22. -Poor candidate for amiodarone at present as he is off anticoagulation -Consider IV diltiazem infusion to improve heart rate and blood pressure control if needed. (3) CHF (congestive heart failure): Plan: - Patient would not allow echocardiogram to be performed earlier this hospital stay. Study completed 05/13/2022 with patient sleeping comfortably. LVEF lower limit of normal 50-55% with mild to moderate mitral regurgitation, no evidence of pulmonary hypertension, mild aortic valve sclerosis without stenosis. -Hypoxia still noted, but I am uncertain if this is on the basis of ongoing volume overload or just due to patient's somnolence. -Agree with dose of 40 mg IV furosemide today DVT prophylaxis: Lovenox 40 SQ daily while off of Eliquis . Admission and Anticipated Discharge Date Admission Date: May 10, 2022 Subjective Patient seen examined at the bedside. Unable to obtain history due to ongoing delirium. Hypertensive and tachycardic. Metoprolol titrated to 5 mg every 4 hours yesterday. Unable to take oral medication. As-needed labetalol added by hospitalist. Review of Systems Review of Systems: All systems reviewed & are unremarkable except as noted in Subjective Physical Exam Constitutional: well nourished, + ill appearing and + obese Respiratory: no respiratory distress, no labored breathing and no retractions Auscultation: no rales, no rhonchi and no wheezes Cardiovascular: Rate/Rhythm: regular rhythm and + tachycardic Heart Sounds: normal S1 and normal S2 Vessels: no JVD Gastrointestinal (Abdomen): Inspection/Auscultation: abdomen normal to inspection; abdomen not distended Percussion/Palpation: abdomen soft; abdomen nontender, no guarding and abdomen not rigid Results & Data ([facility]) Vital Signs (Past 12 Hours) Vital Signs Temp Pulse Pulse Resp BP BP BP 05/15/22 12:53 130 H 05/15/22 08:00 05/15/22 08:53 102 H 182/91 H 05/15/22 07:04 36.6 C 89 21 185/94 H 05/15/22 05:00 05/15/22 04:01 148/116 H 05/15/22 03:29 122 H 185/134 H 05/15/22 03:08 37.0 C 122 H 20 185/134 H Pulse Ox Pulse Ox O2 Del Method O2 Del Method O2 Flow Rate O2 Flow Rate 05/15/22 12:53 05/15/22 08:00 Nasal Cannula 2 05/15/22 08:53 05/15/22 07:04 92 Nasal Cannula 5 05/15/22 05:00 97 Nasal Cannula 5 05/15/22 04:01 05/15/22 03:29 05/15/22 03:08 97 Nasal Cannula 5
--- NOTE | 2022-05-15 14:46 | XRay Report ---
XR chest 1V portable CLINICAL HISTORY: f/u pulmonary edema TECHNIQUE: Single frontal radiograph of the chest was obtained. Comparison: Comparison is made to chest radiograph 05/12/2022 FINDINGS: Exam is limited by underpenetration. Median sternotomy wires are unchanged. Cardiomegaly is noted. Pr ominence and cephalization of the vasculature is seen. Lungs are underinflated but otherwise clear. N o evidence of pleural effusion or pneumothorax. IMPRESSION: Mild pulmonary edema, improved from prior exam. ACT 112: Negative or not required by law. Electronically signed by: Bennie Martin M.D. 05/15/2022 2:44 PM
--- NOTE | 2022-05-15 16:10 | Hospitalist Progress Note ---
Date of Service May 15, 2022 Assessment & Plan (1) CHF (congestive heart failure): Plan Acute on chronic diastolic heart failure. SOB Patient presenting with progressive shortness of breath and BLE swelling BNP elevated, troponin mildly elevated, CXR with pulmonary edema, EKG with A. fib and heart rate in 90s. CTA chest showed no evidence of pulmonary embolus in the main, lobar, or segmental pulmonary arteries. Cardiomegaly with evidence of congestive failure. There are bilateral airspace opacities/consolidation, most confluent in the right lower lobe. Echo showed no LV wall motion abnormality with ejection fraction 50 to 55% repeat CXR showed mild pulmonary edema, improved from prior exam. Continue oxygen supplement Lasix 20mg IV given this morning and will give an additional 20mg IV later Continue monitor I/O Elevated troponin Mostly due to CHF/Afib with RVR Continue Eliquis, aspirin, atorvastatin and metoprolol Continue monitor closely Encephalopathy CT head showed no acute intracranial finding Continue 1 to 1 observation stable Dysphagia Speech on board video swallow showed Pharyngeal penetration and aspiration was seen with all sampled textures. Discussed with family about permissive aspiration and they agreed. No tube feeding as per family Continue aspiration precaution Paroxysmal A. fib exchange engineer showed A. fib with RVR Patient has not been able to take p.o. metoprolol due to dysphagia Cardiology on board Continue IV metoprolol 5mg q6h Eliquis has been on hold due to dysphagia Will start on Lovenox BID, risk of bleeding discussed with family Hypertensive urgency: History of resistant hyper tension. His echo from last admission showed severe left ventricle hypertrophy He has not been getting PO metoprolol, lisinopril and spironolactone Will start on Enalapril IV for now Continue monitor BP Cardiology on board Behavioral issue (? Dementia related) In past admission patient was agitated requiring medication. His presentation is similar as well. Plan is to provide frequent reorientation, olanzapine as needed. case discussed with psychiatry- nothing different to offer Other chronic medical conditions: History of CAD, history of CVA, dementia, HLD, PAF --->> continue with/resume home meds as and when appropriate. DVT prophylaxis: on Lovenox Full code Admission and Anticipated Discharge Date Admission Date: May 10, 2022 Subjective Pt was seen and examined for follow of confusion/agitation Lying in bed with one to one evaluation Staff said pt continues to cough while eating Spoke to daughter and today, discussed management in details and answered all their questions Family agreed with permissive aspiration and changed his code status to DNR Review of Systems Review of Systems: All systems reviewed & are unremarkable except as noted in Subjective Physical Exam Physical Exam: General- agitated Head- atraumatic Eyes- PERRL, EOMI, ENT- oropharynx clear Neck- supple, no JVD Lungs- + decreased breath sounds, + crackles Heart- irregular rhythm Abdomen- normal bowel sounds, soft, nontender Extremities- no calf tenderness Neuro- alert, confused PERRL, EOMI; no facial palsy; no dysarthria Skin- warm & dry Results & Data Results & Data ([facility]) Vital Signs (Past 12 Hours) Vital Signs Temp Pulse Pulse Resp BP BP Pulse Ox 05/15/22 14:58 37.0 C 130 H 161/131 H 94 05/15/22 12:53 130 H 05/15/22 08:00 05/15/22 08:53 102 H 182/91 H 05/15/22 07:04 36.6 C 89 21 185/94 H 92 05/15/22 05:00 Pulse Ox O2 Del Method O2 Del Method O2 Flow Rate O2 Flow Rate 05/15/22 14:58 Nasal Cannula 2 05/15/22 12:53 05/15/22 08:00 Nasal Cannula 2 05/15/22 08:53 05/15/22 07:04 Nasal Cannula 5 05/15/22 05:00 97 Nasal Cannula 5
[2022-05-15] MEDS ORDERED: ENALAPRILAT 1.25 MG in DEXTROSE 5% 25 ML IV PRN (16:39)
[2022-05-15] MEDS ORDERED: ENOXAPARIN 1 MG/KG SQ SCH (21:00)
[2022-05-15] MEDS: ENOXAPARIN INJ 120 MG/0.8 ML SYR SQ SCH (21:32)
[2022-05-16] MEDS: METOPROLOL TARTRATE 1 MG/ML VIAL IV SCH ×5 (03:32→20:00)
[2022-05-16] MEDS: NITROGLYCERIN 2% OINTMENT 30GM TUBE EXT SCH ×3 (05:03→17:48)
[2022-05-16 06:14] LABS: BUN Creatinine Ratio 23.4 (10-20); Calcium 9.3 mg/dl (8.5-10.1); Creatinine Clr Calc Pharmacy 64.4 ml/min; Est GFR (African American) 72.8 ml/min; Est GFR (Non-African American) 62.8 ml/min; Potassium 3.6 mmol/L (3.5-5.1)
[2022-05-16] MEDS: ENOXAPARIN INJ 120 MG/0.8 ML SYR SQ SCH ×2 (08:12→20:00)
[2022-05-16] MEDS: ASPIRIN 81 MG ECTAB PO SCH (08:12)
[2022-05-16] MEDS ORDERED: FUROSEMIDE 40 MG/4 ML VIAL IV ONE (10:12)
--- NOTE | 2022-05-16 10:32 | Cardiology Progress Note ---
Date of Service May 16, 2022 Assessment & Plan (1) Acute delirium: Plan: -Cognitive impairment attributed to vascular dementia. -Unable to take oral medications -Hypernatremic, Recommend hold further Lasix -CT of the head obtained. Report pending. -Continue supportive care. May need to consider infection work-up, will defer to hospitalist service. (2) Paroxysmal atrial fibrillation: Plan: - Telemetry demonstrates atrial flutter 80s, improved today. -Patient with history of paroxysmal atrial fibrillation. He was in sinus rhythm at time of hospital stay in Nov, 2021, atrial fibrillation noted in March, and again this admission. -Eliquis on hold due to inability to tolerate oral medications -CT of the brain without evidence of intracranial hemorrhage or acute territorial infarction. -Anticoagulation with subcu Lovenox initiated by internal medicine -Continue IV metoprolol, dose increased to 5 mg IV every 4 hours 05/15/22. -Consider IV diltiazem infusion to improve heart rate and blood pressure control if needed. (3) CHF (congestive heart failure): Plan: - Patient would not allow echocardiogram to be performed earlier this hospital stay. Study completed 05/13/2022 with patient sleeping comfortably. LVEF lower limit of normal 50-55% with mild to moderate mitral regurgitation, no evidence of pulmonary hypertension, mild aortic valve sclerosis without stenosis. -Hypoxia still noted, but I am uncertain if this is on the basis of ongoing volume overload or just due to patient's somnolence. -Hold further Lasix in setting of poor p.o. intake and ongoing hypernatremia. DVT prophylaxis: Lovenox 40 SQ daily while off of Eliquis . Admission and Anticipated Discharge Date Admission Date: May 10, 2022 Subjective Patient seen and examined at the bedside. More alert today. Able to answer some questions although remains somnolent. Telemetry demonstrates improved heart rate control in the 80s. Review of Systems Review of Systems: Unobtainable due to cognitive status Physical Exam Constitutional: well nourished, + ill appearing and + obese Respiratory: no respiratory distress, no labored breathing and no retractions Auscultation: no rales, no rhonchi and no wheezes Cardiovascular: Rate/Rhythm: regular rhythm; not tachycardic Heart Sounds: normal S1 and normal S2 Vessels: no JVD Gastrointestinal (Abdomen): Inspection/Auscultation: abdomen normal to inspection; abdomen not distended Percussion/Palpation: abdomen soft; abdomen nontender, no guarding and abdomen not rigid Results & Data ([facility]) Vital Signs (Past 12 Hours) Vital Signs Temp Pulse Pulse Resp BP BP BP 05/16/22 07:30 05/16/22 08:11 110 H 164/116 H 05/16/22 07:18 36.4 C L 66 20 164/116 H 05/16/22 05:00 05/16/22 04:45 162/116 H 05/16/22 03:32 113 H 190/123 H 05/16/22 03:29 36.6 C 113 H 18 190/123 H 05/15/22 23:54 121 H 05/15/22 23:54 05/15/22 23:20 101 H 147/110 H 05/15/22 23:16 36.6 C 101 H 20 147/110 H Pulse Ox Pulse Ox O2 Del Method O2 Del Method O2 Flow Rate O2 Flow Rate 05/16/22 07:30 Nasal Cannula 2 05/16/22 08:11 05/16/22 07:18 94 Nasal Cannula 2 05/16/22 05:00 93 Nasal Cannula 2 05/16/22 04:45 05/16/22 03:32 05/16/22 03:29 93 Nasal Cannula 2 05/15/22 23:54 05/15/22 23:54 Nasal Cannula 2 05/15/22 23:20 05/15/22 23:16 92 Nasal Cannula 2
[2022-05-16] MEDS: THIAMINE HCL 100 MG TAB PO SCH (10:39)
--- NOTE | 2022-05-16 23:32 | Hospitalist Progress Note ---
Date of Service May 16, 2022 Assessment & Plan (1) CHF (congestive heart failure): Plan Acute on chronic diastolic heart failure. SOB Patient presenting with progressive shortness of breath and BLE swelling BNP elevated, troponin mildly elevated, CXR with pulmonary edema, EKG with A. fib and heart rate in 90s. CTA chest showed no evidence of pulmonary embolus in the main, lobar, or segmental pulmonary arteries. Cardiomegaly with evidence of congestive failure. There are bilateral airspace opacities/consolidation, most confluent in the right lower lobe. Echo showed no LV wall motion abnormality with ejection fraction 50 to 55% repeat CXR showed mild pulmonary edema, improved from prior exam. Continue oxygen supplement Lasix 40mg given today Continue monitor I/O Saturated well on RA Elevated troponin Mostly due to CHF/Afib with RVR Continue Eliquis, aspirin, atorvastatin and metoprolol Continue monitor closely Encephalopathy CT head showed no acute intracranial finding Mental status improves stable Dysphagia Speech on board video swallow showed Pharyngeal penetration and aspiration was seen with all sampled textures. Discussed with family about permissive aspiration and they agreed. No tube feeding as per family Continue aspiration precaution Paroxysmal A. fib research support specialist showed A. fib with RVR Patient has not been able to take p.o. metoprolol due to dysphagia Cardiology on board Continue IV metoprolol 5mg q6h Eliquis has been on hold due to dysphagia Continue Lovenox BID, risk of bleeding discussed with family Hypertensive urgency: History of resistant hyper tension. His echo from last admission showed severe left ventricle hypertrophy He has not been getting PO metoprolol, lisinopril and spironolactone Will start on Enalapril IV for now Continue monitor BP Cardiology on board Behavioral issue (? Dementia related) In past admission patient was agitated requiring medication. His presentation is similar as well. Plan is to provide frequent reorientation, olanzapine as needed. case discussed with psychiatry- nothing different to offer Other chronic medical conditions: History of CAD, history of CVA, dementia, HLD, PAF --->> continue with/resume home meds as and when appropriate. DVT prophylaxis: on Lovenox Full code Admission and Anticipated Discharge Date Admission Date: May 10, 2022 Subjective Pt was seen and examined for follow of confusion/agitation Lying in bed with daughter and at bedside Pt is looking much better today He was able to eat few bites but cough at times Denies any chest pain, palpitation, dizziness and SOB Review of Systems Review of Systems: All systems reviewed & are unremarkable except as noted in Subjective Physical Exam Physical Exam: General- agitated Head- atraumatic Eyes- PERRL, EOMI, ENT- oropharynx clear Neck- supple, no JVD Lungs- + decreased breath sounds, + crackles Heart- irregular rhythm Abdomen- normal bowel sounds, soft, nontender Extremities- no calf tenderness Neuro- alert, confused PERRL, EOMI; no facial palsy; no dysarthria Skin- warm & dry Results & Data Results & Data ([facility]) Vital Signs (Past 12 Hours) Vital Signs Temp Pulse Pulse Resp BP BP BP 05/16/22 20:08 05/16/22 19:13 36.7 C 73 20 148/88 H 05/16/22 17:45 79 117/76 05/16/22 15:52 99 H 05/16/22 15:26 83 129/82 05/16/22 15:15 36.7 C 83 18 129/82 Pulse Ox O2 Del Method O2 Flow Rate 05/16/22 20:08 Nasal Cannula 2 05/16/22 19:13 95 Nasal Cannula 2 05/16/22 17:45 05/16/22 15:52 05/16/22 15:26 05/16/22 15:15 90 Room Air
[2022-05-17] MEDS: METOPROLOL TARTRATE 1 MG/ML VIAL IV SCH ×7 (00:50→23:37)
[2022-05-17] MEDS: NITROGLYCERIN 2% OINTMENT 30GM TUBE EXT SCH ×5 (00:50→23:37)
[2022-05-17] MEDS ORDERED: POTASSIUM CHLORIDE PWD 20 MEQ PACK PO STA (02:27)
[2022-05-17] MEDS: POTASSIUM CHLORIDE / WTR 10 MEQ/100 ML PLCT IV SCH ×4 (03:22→06:36)
[2022-05-17 06:39] LABS: Magnesium 2.4 mg/dl (1.7-2.4)
[2022-05-17 07:12] LABS: Hematocrit (blood only) 47.1 % (40.1-51.0); Hemoglobin 14.9 g/dl (14.0-18.0); Mean Corpuscular Hemoglobin 28.1 pg (25.0-34.0); Mean Corpuscular Hgb Conc 31.6 g/dL (32.0-36.0); Mean Corpuscular Volume 88.7 fL (80.0-100.0); Mean Platelet Volume 10.4 fL (9.4-12.4); Platelet Count 239 K/uL (130-400); RDW Coefficient of Variation 14.1 % (11.5-14.5); RDW Standard Deviation 45.5 fL (36.4-46.3); Red Blood Count 5.31 M/uL (4.63-6.08); White Blood Count 10.44 K/ul (4.8-10.8)
[2022-05-17 07:55] LABS: BUN Creatinine Ratio 20.5 (10-20); Calcium 9.3 mg/dl (8.5-10.1); Creatinine Clr Calc Pharmacy 55.6 ml/min; Est GFR (African American) 61.9 ml/min; Est GFR (Non-African American) 53.4 ml/min; Potassium 3.9 mmol/L (3.5-5.1)
[2022-05-17] MEDS: ASPIRIN 81 MG ECTAB PO SCH (08:28)
[2022-05-17] MEDS: ENOXAPARIN INJ 120 MG/0.8 ML SYR SQ SCH ×2 (08:29→20:23)
[2022-05-17] MEDS: THIAMINE HCL 100 MG TAB PO SCH (08:29)
--- NOTE | 2022-05-17 11:20 | Cardiology Progress Note ---
Date of Service May 17, 2022 Assessment & Plan (1) Acute delirium: Plan: -Cognitive impairment attributed to vascular dementia. -Unable to take oral medications -hypernatremia improved -CT of the head obtained. Report pending. -Continue supportive care. May need to consider infection work-up, will defer to hospitalist service. (2) Paroxysmal atrial fibrillation: Plan: - Telemetry demonstrates atrial flutter 80s, improved. - Patient with history of paroxysmal atrial fibrillation. He was in sinus rhythm at time of hospital stay in Nov, 2021, atrial fibrillation noted in March, and again this admission. -Eliquis on hold due to inability to tolerate oral medications /subcu Lovenox initiated -CT of the brain without evidence of intracranial hemorrhage or acute territorial infarction. -Continue IV metoprolol, dose increased to 5 mg IV every 4 hours 05/15/22. Transition to oral meds when able. Recommend metoprolol 50 mg twice daily. (3) CHF (congestive heart failure): Plan: - Patient would not allow echocardiogram to be performed earlier this hospital stay. Study completed 05/13/2022 with patient sleeping comfortably. LVEF lower limit of normal 50-55% with mild to moderate mitral regurgitation, no evidence of pulmonary hypertension, mild aortic valve sclerosis without stenosis. -Hypoxia still noted, but I am uncertain if this is on the basis of ongoing volume overload or just due to patient's somnolence. -Hold Lasix Admission and Anticipated Discharge Date Admission Date: May 10, 2022 Subjective Patient seen examined at the bedside. More alert today. Heart rate improved. Blood pressure remains elevated. Poor historian. Review of Systems Review of Systems: All systems reviewed & are unremarkable except as noted in Subjective Physical Exam Constitutional: well nourished, + ill appearing and + obese Respiratory: no respiratory distress, no labored breathing and no retractions Auscultation: no rales, no rhonchi and no wheezes Cardiovascular: Rate/Rhythm: regular rhythm; not tachycardic Heart Sounds: normal S1 and normal S2 Vessels: no JVD Gastrointestinal (Abdomen): Inspection/Auscultation: abdomen normal to inspection; abdomen not distended Percussion/Palpation: abdomen soft; abdomen nontender, no guarding and abdomen not rigid Results & Data ([facility]) Vital Signs (Past 12 Hours) Vital Signs Temp Pulse Pulse Resp BP BP Pulse Ox 05/17/22 07:20 05/17/22 07:35 83 165/105 H 05/17/22 07:34 36.3 C L 83 18 165/105 H 96 05/17/22 05:00 05/17/22 03:50 36.5 C 72 16 192/123 H 96 Pulse Ox O2 Del Method O2 Del Method O2 Flow Rate O2 Flow Rate 05/17/22 07:20 Nasal Cannula 3 05/17/22 07:35 05/17/22 07:34 Nasal Cannula 3 05/17/22 05:00 93 Nasal Cannula 3 05/17/22 03:50 Nasal Cannula 3
--- NOTE | 2022-05-17 17:35 | Hospitalist Progress Note ---
Date of Service May 17, 2022 Assessment & Plan (1) CHF (congestive heart failure): Plan Acute on chronic diastolic heart failure. SOB Patient presenting with progressive shortness of breath and BLE swelling BNP elevated, troponin mildly elevated, CXR with pulmonary edema, EKG with A. fib and heart rate in 90s. CTA chest showed no evidence of pulmonary embolus in the main, lobar, or segmental pulmonary arteries. Cardiomegaly with evidence of congestive failure. There are bilateral airspace opacities/consolidation, most confluent in the right lower lobe. Echo showed no LV wall motion abnormality with ejection fraction 50 to 55% repeat CXR showed mild pulmonary edema, improved from prior exam. Continue oxygen supplement Continue monitor I/O Saturated well on RA Elevated troponin Mostly due to CHF/Afib with RVR Continue Eliquis, aspirin, atorvastatin and metoprolol Continue monitor closely Encephalopathy CT head showed no acute intracranial finding Mental status improves stable Dysphagia Speech on board video swallow showed Pharyngeal penetration and aspiration was seen with all sampled textures. Discussed with family about permissive aspiration and they agreed. No tube feeding as per family Speech will reassess today Continue aspiration precaution Paroxysmal A. fib hall monitor showed A. fib with RVR Patient has not been able to take p.o. metoprolol due to dysphagia Cardiology on board Continue IV metoprolol 5mg q6h Eliquis has been on hold due to dysphagia Continue Lovenox BID, risk of bleeding discussed with family Will consider to transition to PO meds Hypertensive urgency: History of resistant hyper tension. His echo from last admission showed severe left ventricle hypertrophy He has not been getting PO metoprolol, lisinopril and spironolactone Will start on Enalapril IV for now Continue monitor BP Cardiology on board Behavioral issue (? Dementia related) In past admission patient was agitated requiring medication. His presentation is similar as well. Plan is to provide frequent reorientation, olanzapine as needed. case discussed with psychiatry- nothing different to offer Other chronic medical conditions: History of CAD, history of CVA, dementia, HLD, PAF --->> continue with/resume home meds as and when appropriate. DVT prophylaxis: on Lovenox Full code Admission and Anticipated Discharge Date Admission Date: May 10, 2022 Subjective Pt was seen and examined for follow of confusion/agitation Lying in bed with daughter and at bedside while eating lunch Pt is looking much better today Denies any chest pain, palpitation, dizziness and SOB Review of Systems Review of Systems: All systems reviewed & are unremarkable except as noted in Subjective Physical Exam Physical Exam: General- agitated Head- atraumatic Eyes- PERRL, EOMI, ENT- oropharynx clear Neck- supple, no JVD Lungs- + decreased breath sounds, + crackles Heart- irregular rhythm Abdomen- normal bowel sounds, soft, nontender Extremities- no calf tenderness Neuro- alert, confused PERRL, EOMI; no facial palsy; no dysarthria Skin- warm & dry Results & Data Results & Data ([facility]) Vital Signs (Past 12 Hours) Vital Signs Temp Pulse Pulse Resp BP BP BP 05/17/22 15:25 36.3 C L 86 17 168/94 H 05/17/22 15:29 36.0 C L 80 18 149/96 H 05/17/22 15:17 80 149/96 H 05/17/22 14:25 05/17/22 12:33 80 177/97 H 05/17/22 11:54 36.3 C L 80 18 177/97 H 05/17/22 07:20 05/17/22 07:35 83 165/105 H 05/17/22 07:34 36.3 C L 83 18 BP Pulse Ox O2 Del Method O2 Flow Rate 05/17/22 15:25 94 Nasal Cannula 2 05/17/22 15:29 96 Nasal Cannula 3 05/17/22 15:17 05/17/22 14:25 96 05/17/22 12:33 05/17/22 11:54 90 Room Air 05/17/22 07:20 Nasal Cannula 3 05/17/22 07:35 05/17/22 07:34 165/105 H 96 Nasal Cannula 3
[2022-05-18] MEDS: METOPROLOL TARTRATE 1 MG/ML VIAL IV SCH ×6 (03:58→23:35)
[2022-05-18] MEDS: NITROGLYCERIN 2% OINTMENT 30GM TUBE EXT SCH ×4 (04:18→23:35)
[2022-05-18 07:36] LABS: Hematocrit (blood only) 44.1 % (40.1-51.0); Hemoglobin 14.3 g/dl (14.0-18.0); Mean Corpuscular Hemoglobin 27.8 pg (25.0-34.0); Mean Corpuscular Hgb Conc 32.4 g/dL (32.0-36.0); Mean Corpuscular Volume 85.8 fL (80.0-100.0); Mean Platelet Volume 10.1 fL (9.4-12.4); Platelet Count 235 K/uL (130-400); RDW Standard Deviation 43.2 fL (36.4-46.3); Red Blood Count 5.14 M/uL (4.63-6.08); White Blood Count 8.63 K/ul (4.8-10.8)
[2022-05-18 08:08] LABS: BUN Creatinine Ratio 19.4 (10-20); Creatinine Clr Calc Pharmacy 57.6 ml/min; Est GFR (African American) 63.7 ml/min; Est GFR (Non-African American) 54.9 ml/min; Potassium 3.7 mmol/L (3.5-5.1)
[2022-05-18] MEDS: ENOXAPARIN INJ 120 MG/0.8 ML SYR SQ SCH ×2 (08:44→21:00)
[2022-05-18] MEDS: THIAMINE HCL 100 MG TAB PO SCH (08:45)
[2022-05-18] MEDS: ASPIRIN 81 MG ECTAB PO SCH (08:45)
--- NOTE | 2022-05-18 20:05 | Hospitalist Progress Note ---
Date of Service May 18, 2022 Assessment & Plan (1) CHF (congestive heart failure): Plan Acute on chronic diastolic heart failure. SOB Patient presenting with progressive shortness of breath and BLE swelling BNP elevated, troponin mildly elevated, CXR with pulmonary edema, EKG with A. fib and heart rate in 90s. CTA chest showed no evidence of pulmonary embolus in the main, lobar, or segmental pulmonary arteries. Cardiomegaly with evidence of congestive failure. There are bilateral airspace opacities/consolidation, most confluent in the right lower lobe. Echo showed no LV wall motion abnormality with ejection fraction 50 to 55% repeat CXR showed mild pulmonary edema, improved from prior exam. Continue oxygen supplement Continue monitor I/O Clinically improved Elevated troponin Mostly due to CHF/Afib with RVR Continue Eliquis, aspirin, atorvastatin and metoprolol Continue monitor closely Encephalopathy CT head showed no acute intracranial finding Mental status improves stable Dysphagia Speech on board video swallow showed Pharyngeal penetration and aspiration was seen with all sampled textures. Discussed with family about permissive aspiration and they agreed. No tube feeding as per family Waiting for Speech to reassess him Continue aspiration precaution Will change his medication to PO Paroxysmal A. fib classroom monitor showed A. fib with RVR Patient has not been able to take p.o. metoprolol due to dysphagia Cardiology on board Continue IV metoprolol 5mg q6h Eliquis has been on hold due to dysphagia Continue Lovenox BID, risk of bleeding discussed with family Will consider to transition to PO meds Hypertensive urgency: History of resistant hyper tension. His echo from last admission showed severe left ventricle hypertrophy He has not been getting PO metoprolol, lisinopril and spironolactone On Enalapril IV since pt was not able to take PO Since he is tolerated oral, will transition to PO Continue monitor BP Cardiology on board Behavioral issue (? Dementia related) In past admission patient was agitated requiring medication. His presentation is similar as well. Plan is to provide frequent reorientation, olanzapine as needed. case discussed with psychiatry- nothing different to offer Other chronic medical conditions: History of CAD, history of CVA, dementia, HLD, PAF --->> continue with/resume home meds as and when appropriate. DVT prophylaxis: on Lovenox Full code Admission and Anticipated Discharge Date Admission Date: May 10, 2022 Subjective Pt was seen and examined for follow of confusion/agitation Lying in bed with no acute distress Pt continued to improve slowly day by day Denies any chest pain, palpitation, dizziness Review of Systems Review of Systems: All systems reviewed & are unremarkable except as noted in Subjective Physical Exam Physical Exam: General- agitated Head- atraumatic Eyes- PERRL, EOMI, ENT- oropharynx clear Neck- supple, no JVD Lungs- + decreased breath sounds, + coarse Heart- irregular rhythm Abdomen- normal bowel sounds, soft, nontender Extremities- no calf tenderness Neuro- alert, confused PERRL, EOMI; no facial palsy; no dysarthria Skin- warm & dry Results & Data Results & Data ([facility]) Vital Signs (Past 12 Hours) Vital Signs Temp Pulse Pulse Resp BP BP BP 05/18/22 19:46 36.9 C 76 18 160/93 H 05/18/22 18:21 76 164/93 H 05/18/22 17:49 79 05/18/22 16:32 81 150/97 H 05/18/22 15:39 36.2 C L 81 18 150/97 H 05/18/22 11:43 80 151/104 H 05/18/22 10:35 36.0 C L 82 14 151/104 H 05/18/22 08:30 83 05/18/22 08:30 05/18/22 08:41 82 156/98 H Pulse Ox O2 Del Method O2 Flow Rate 05/18/22 19:46 91 05/18/22 18:21 05/18/22 17:49 05/18/22 16:32 05/18/22 15:39 95 Room Air 05/18/22 11:43 05/18/22 10:35 98 Nasal Cannula 2 05/18/22 08:30 05/18/22 08:30 Nasal Cannula 2 05/18/22 08:41
[2022-05-18] MEDS: lisinopril 5 MG TAB PO SCH (21:49)
[2022-05-19] MEDS: METOPROLOL TARTRATE 1 MG/ML VIAL IV SCH ×3 (05:31→14:05)
[2022-05-19] MEDS: NITROGLYCERIN 2% OINTMENT 30GM TUBE EXT SCH ×3 (05:37→18:02)
[2022-05-19] MEDS: ASPIRIN 81 MG ECTAB PO SCH (08:51)
[2022-05-19] MEDS: THIAMINE HCL 100 MG TAB PO SCH (08:51)
[2022-05-19] MEDS: APIXABAN 5 MG TABLET PO SCH ×2 (08:51→20:38)
[2022-05-19 10:56] LABS: BUN Creatinine Ratio 14.4 (10-20); Calcium 8.9 mg/dl (8.5-10.1); Creatinine Clr Calc Pharmacy 57.1 ml/min; Est GFR (African American) 63.1 ml/min; Est GFR (Non-African American) 54.4 ml/min; Potassium 3.3 mmol/L (3.5-5.1)
[2022-05-19] MEDS: SPIRONOLACTONE 25 MG TAB PO SCH (12:50)
[2022-05-19] MEDS ORDERED: POTASSIUM CHLORIDE PWD 20 MEQ PACK PO ONE (13:29)
--- NOTE | 2022-05-19 13:35 | Hospitalist Progress Note ---
Date of Service May 19, 2022 Assessment & Plan (1) CHF (congestive heart failure): Plan Acute on chronic diastolic heart failure. Shortness of breath Patient presented with progressive shortness of breath and BLE swelling BNP elevated, troponin mildly elevated CXR with pulmonary edema, EKG with A. fib and heart rate in 90s. CTA chest showed no evidence of pulmonary embolus in the main, lobar, or segmental pulmonary arteries. Cardiomegaly with evidence of congestive failure. There are bilateral airspace opacities/consolidation, most confluent in the right lower lobe. Echo showed no LV wall motion abnormality with ejection fraction 50 to 55% Repeat CXR showed mild pulmonary edema, improved from prior exam. Clinically improved Currently on room air Discussed with Student Success Advisor Dr Castillo. Recommends continuing aldactone on discharge Elevated troponin Mostly due to CHF/Afib with RVR Continue Eliquis, aspirin, atorvastatin and metoprolol Dysphagia Speech on board Video swallow showed Pharyngeal penetration and aspiration was seen with all sampled textures. Dr Cruz had discussed with family about permissive aspiration and they agreed. No tube feeding as per family Continue aspiration precaution Continue diet per speech therapist Paroxysmal A. fib Eliquis has been resumed since patient is tolerating po Resume home metoprolol succinate tonight and monitor Hypertensive urgency: History of resistant hypertension. BP is better controlled Continue po lisinopril. Currently on lower dose of 5mg HS. Will monitor and uptitrate as needed Encephalopathy Possible delirium in setting of dementia CT head showed no acute intracranial finding Per , patient has dementia In past admission patient was agitated requiring medication. Has been doing better since yesterday per RN. Redirect as needed Other chronic medical conditions: History of CAD, history of CVA, dementia, HLD DVT prophylaxis: on Eliquis DNR Admission and Anticipated Discharge Date Admission Date: May 10, 2022 Subjective Patient seen and examined. Patient is awake and alert oriented to person, knows and is in a hospital but not which hospital, not oriented to time. Follows simple commands. Poor historian Reports only some pain in left foot which he reported was mild, not referred, no known associated factors. Denies any chest pain, cough. Reports occasional shortness of breath. Denies any nausea, vomiting, abdominal pain Per RN, patient is tolerating p.o. meds better today. Physical Exam Constitutional: + well hydrated and + obese; no acute distress Eyes: PERRL, conjunctivae normal, anicteric sclerae ENMT: external ear and nose normal, oropharynx normal Respiratory: normal respiratory effort; no respiratory distress Diminished breath sound Cardiovascular: Rate/Rhythm: + irregularly irregular S1-S2 Gastrointestinal (Abdomen): normal bowel sounds, soft, nontender, no hepatosplenomegaly Musculoskeletal: No pedal edema. No tenderness noted on left foot Neurologic: PERRL, EOMI, accommodation nl, no face palsy, no dysarthria Psychiatric: Orientation: alert, oriented to place and cooperative; + not oriented to time Results & Data Results & Data ([facility]) Vital Signs (Past 12 Hours) Vital Signs Temp Pulse Pulse Resp BP BP BP 05/19/22 12:31 36.8 C 81 19 127/88 05/19/22 08:00 79 05/19/22 08:00 05/19/22 08:51 79 162/71 H 05/19/22 08:00 36.7 C 76 18 05/19/22 05:31 77 163/103 H 05/19/22 03:14 36.5 C 78 18 163/82 H BP Pulse Ox O2 Del Method 05/19/22 12:31 91 Room Air 05/19/22 08:00 05/19/22 08:00 Room Air 05/19/22 08:51 05/19/22 08:00 158/76 H 97 05/19/22 05:31 05/19/22 03:14 91 Laboratory Results Abnormal lab results 05/19/22 Range/Units 09:26 Potassium 3.3 L (3.5-5.1) mmol/L Glucose 134 H (70-99(Fasting)) mg/dl
[2022-05-19] MEDS: ATORVASTATIN 40 MG TAB PO SCH (16:30)
[2022-05-19] MEDS: lisinopril 5 MG TAB PO SCH (20:38)
[2022-05-19] MEDS: METOPROLOL SUCC 25MG EXT REL TAB PO SCH (20:39)
[2022-05-20] MEDS: NITROGLYCERIN 2% OINTMENT 30GM TUBE EXT SCH ×3 (00:33→12:30)
[2022-05-20 06:46] LABS: Hematocrit (blood only) 43.5 % (40.1-51.0); Hemoglobin 13.9 g/dl (14.0-18.0); Mean Corpuscular Hemoglobin 27.9 pg (25.0-34.0); Mean Corpuscular Volume 87.3 fL (80.0-100.0); Mean Platelet Volume 10.3 fL (9.4-12.4); Platelet Count 215 K/uL (130-400); RDW Standard Deviation 44.2 fL (36.4-46.3); Red Blood Count 4.98 M/uL (4.63-6.08); White Blood Count 7.21 K/ul (4.8-10.8)
[2022-05-20] MEDS ORDERED: hydrALAZINE HCL 20 MG/ML VIAL IV ONE (07:29)
[2022-05-20 07:36] LABS: Calcium 9.2 mg/dl (8.5-10.1); Creatinine Clr Calc Pharmacy 64.2 ml/min; Est GFR (African American) 71.3 ml/min; Est GFR (Non-African American) 61.5 ml/min; Magnesium 2.3 mg/dl (1.7-2.4); Phosphorus 3.3 mg/dl (2.5-4.9); Potassium 4.3 mmol/L (3.5-5.1)
[2022-05-20] MEDS: METOPROLOL SUCC 25MG EXT REL TAB PO SCH (07:51)
[2022-05-20] MEDS: APIXABAN 5 MG TABLET PO SCH (07:52)
[2022-05-20] MEDS: ASPIRIN 81 MG ECTAB PO SCH (07:52)
[2022-05-20] MEDS: ATORVASTATIN 40 MG TAB PO SCH (07:52)
[2022-05-20] MEDS: SPIRONOLACTONE 25 MG TAB PO SCH (07:53)
[2022-05-20] MEDS: THIAMINE HCL 100 MG TAB PO SCH (07:53)
--- NOTE | 2022-05-20 12:01 | Discharge Summary ---
Discharge Summary Date of Service May 20, 2022 Notes For Next Care Provider Continue management of chronic medical problems Patient follow-up with cardiology outpatient. Medication Changes From Visit Spironolactone added to regimen Admission HPI Per Admitting Provider 77-year-old male with PMH of HTN, CAD, [place], CABG x4 in 2009 in [place], HLD, obesity, ex-smoker quit 30 years ago, PAF on Eliquis, CVA, stage III CKD presented to our ED 05/10 with complaint of progressive shortness of breath and bilateral lower legs swelling. Patient is very hard of hearing, difficult to have bilateral communication in detail, hence history taken from the patient was confirmed by patient's and daughter present at bedside. Patient was having short of breath since last few days, worsening and progressive, does not use oxygen at home, also patient had been having swelling of the legs from around the same time with fluid retention. Patient also started having cough, mostly dry for around the same time, there was concern of fever 1 time few days ago but has not been measured. Patient denies chest pain or headache. Patient reports feeling weak and tired. Of note, patient's heart rate was elevated in the 120s few days ago, his metoprolol dose was increased by his PCP to 37.5 Mg twice a day. Patient quit smoking 30 years ago, denies alcohol use and recreational drug use. Patient does not have a living will, is full code, patient's was at bedside. 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 Medications were reviewed with the patient and his family at bedside. Admission Exam Per Admitting Provider GENERAL: Alert and awake. NAD, on 2L NC O2. HEENT: No pallor, no icterus. Pupils equal, round and reactive to light. Oral mucosa moist. NECK: No JVD, no neck masses. HEART: S1 and S2 heard. irregular rate and rhythm. No murmur, no gallop. Midsternotomy old healed scar. RESPIRATORY SYSTEM: Normal AP diameter. No accessory muscle use. No wheezing, bibasal crackles. ABDOMEN: Soft, bowel sounds present, nontender, no distention. CENTRAL NERVOUS SYSTEM: No facial droop. Speech is clear. Obeys simple commands. Moves extremities. EXTREMITIES: No edema, no erythema seen. Principal Dx & Hospital Course #1 = Principal Diagnosis (1) CHF (congestive heart failure): Plan Acute on chronic diastolic heart failure. Shortness of breath Patient presented with progressive shortness of breath and BLE swelling BNP elevated, troponin mildly elevated CXR with pulmonary edema, EKG with A. fib and heart rate in 90s. CTA chest showed no evidence of pulmonary embolus in the main, lobar, or segmental pulmonary arteries. Cardiomegaly with evidence of congestive failure. There are bilateral airspace opacities/consolidation, most confluent in the right lower lobe. Echo showed no LV wall motion abnormality with ejection fraction 50 to 55% Repeat CXR showed mild pulmonary edema, improved from prior exam. Initially got some lasix which was subsequently held due to poor oral intake and hypernatremia Clinically improved Currently on room air Tunnel Form Placing Supervisor Dr Castillo recommended continuing spironolactone on discharge. Patient can follow up with Cardiology outpatient Elevated troponin Mostly due to CHF/Afib with RVR Continue Eliquis, aspirin, atorvastatin and metoprolol Dysphagia Speech on board Video swallow showed Pharyngeal penetration and aspiration was seen with all sampled textures. Dr Cruz had discussed with family about permissive aspiration and they agreed. No tube feeding as per family Continue aspiration precaution Continue [employer] at rehab Paroxysmal A. fib Continue eliquis and metoprolol succinate Hypertensive urgency: Continue home lisinopril dose Antihypertensives may be adjusted as needed Encephalopathy Possible delirium in setting of dementia CT head showed no acute intracranial finding Per , patient has dementia In past admission patient was agitated requiring medication. Agitation has resolved Redirect as needed Discharge Exam Constitutional + well hydrated and + obese; no acute distress Eyes PERRL, conjunctivae normal, anicteric sclerae ENMT external ear and nose normal, oropharynx normal Respiratory normal respiratory effort; no respiratory distress Auscultation: lungs clear to auscultation bilaterally Cardiovascular Rate/Rhythm: + irregularly irregular S1 S2 Gastrointestinal (Abdomen) normal bowel sounds, soft, nontender, no hepatosplenomegaly Musculoskeletal No pedal edema Neurologic PERRL, EOMI, accommodation nl, no face palsy, no dysarthria Psychiatric Orientation: alert, oriented to person and cooperative; + not oriented to time Updated Medication List Medication Instructions Recorded Confirmed Type aspirin 81 mg tablet,delayed 81 mg PO QAM #30 tabs 08/29/21 05/10/22 Rx release thiamine HCl (vitamin B1) 100 mg 100 mg PO QAM #30 tabs 08/29/21 05/10/22 Rx tablet apixaban 5 mg tablet (Eliquis) 5 mg PO BID 04/20/22 05/10/22 History atorvastatin 80 mg tablet 80 mg PO QAM 04/20/22 05/10/22 History lisinopril 20 mg tablet 20 mg PO HS 04/20/22 05/10/22 History metoprolol succinate 25 mg 37.5 mg PO AMHS 04/20/22 05/10/22 History tablet,extended release 24 hr Prevagen 1 tab PO DAILY 05/10/22 05/10/22 History spironolactone 25 mg tablet 25 mg PO QAM #30 tabs 05/20/22 Rx Hospital Stay Data Consultations 05/10/22 19:04 ED Decision to Admit Stat 05/10/22 23:10 Consult Cardiology Routine Diagnostic Imagining Performed 05/12/22 03:43 CT angio chest PE protocol Urgent 05/12/22 03:45 CT soft tissue neck wo/w con Urgent 05/14/22 11:34 CT Brain [CT head/brain wo con] Routine 05/14/22 11:46 Fluoro video [FL video swallow] Routine Pending Results Patient Have Any Pending Studies at Discharge: No Discharge Instructions Given to Patient (Per Discharging Provider) Mr Rogers. You were brought to the hospital for shortness of breath and leg swelling. You were managed for heart failure exacerbation. You also had some episode of agitation which has resolved. You are being discharged to [facility] for rehab. Spironolactone was added to your medications. Please ensure follow up with your Primary Doctor. It was a pleasure taking care of you. Total Time Total Time Spent Total Time Spent (In Minutes): 40 Total Time Includes: Examination of the Patient, Discharge Planning and Medication Reconciliation
[2022-05-20] MEDS ORDERED: lisinopril 20 MG TAB PO SCH (21:00)
== END 2022-05-20 15:20 | DRG 291 ==
LOC: ED 14:14 → 2S 19:24 → SUATTDRO 19:24 → 2S 22:51

== ENCOUNTER 2023-02-13 12:21 | Inpatient (IN) ==
[2023-02-13] MEDS ORDERED: IOVERSOL 350 MG 125mL Prefilled Syringe IV ONE (12:25)
--- NOTE | 2023-02-13 12:40 | Emergency Department Note ---
Impression & Plan Acute ischemic stroke, Atrial fibrillation ED Provider Note NAME: WALLACE ALCANTAR AGE: 77 SEX: M : 1945 ARRIVES VIA: Ambulance INFORMANT: Patient, EMS, the patient's significant other ED PROVIDER(S): Naren Griffiths DO CHIEF COMPLAINT: Strokelike symptoms HPI: The patient is a 77-year-old male who presented to the emergency department for an evaluation for strokelike symptoms. The patient has a history of atrial fibrillation as well as a stroke in the past. He does take Eliquis. According to the prehospital personnel he did take his Eliquis this morning. The significant other states that she last spoke with him at 1045. His family member came to visit this morning and saw him sitting in the chair with obvious strokelike symptoms. 911 was called. It was confirmed that the patient did take his Eliquis this morning. He was made a stroke alert prior to arrival. The patient was found to have left-sided weakness. There is no reported trauma. ROS: See above HPI for pertinent positives & negatives. A total of 10 systems reviewed and were otherwise negative. PAST MEDICAL HISTORY: See Below PAST SURGICAL HISTORY: See Below FAMILY HISTORY: See Below SOCIAL HISTORY: See Below HOME MEDICATIONS: See Below ALLERGIES: See Below VITALS: See Below PHYSICAL EXAMINATION: GENERAL: The patient is awake and looking around the room. He does appear somewhat slow to respond. EYES: The conjunctivae are clear. The pupils are round and reactive. EARS, NOSE, MOUTH AND THROAT: The nose is without any evidence of any deformity. NECK: The neck is nontender and supple. RESPIRATORY: Normal respiratory effort is noted there is no evidence of wheezing rhonchi or rales CARDIOVASCULAR: Irregular heart sounds were noted to auscultation. There is no definite murmur. GASTROINTESTINAL: The abdomen is soft. Abdomen is nontender. MUSCULOSKELETAL/EXTREMITIES: There is no evidence of gross deformity full range of motion is noted in the hips and shoulders. SKIN: Skin is warm and dry. Pedal edema was noted bilaterally. NEUROLOGIC: The patient is awake and looking around the room. He is slow to answer questions and follow commands. There is a left facial droop with forehead sparing. Speech is dysarthric. Left upper extremity is weak and he is unable to lift it off the bed. The left leg he can flex the knee but he cannot lift it off the bed against gravity. MEDICAL DECISION MAKING: The patient is a 77-year-old male who presented to the emergency department with an acute strokelike symptom. The patient was made a stroke alert prior to arrival. The patient was taken directly to CAT scan. The patient's physical exam was consistent with an acute ischemic stroke. He does take Eliquis. It was confirmed that he did take his dose this morning. He was noted to have an acute onset of strokelike symptoms by family. He was not a candidate for TNK because of the Eliquis. He does not appear to have signs of large vessel occlusion on CT angiography. I discussed patient's condition with the [facility] telestroke neurologist. I also discussed patient's laboratory and radiographic studies with his family. He was given aspirin. I discussed his condition with the on-call [facility] hospitalist. They have agreed to evaluate the patient in the emergency department for further management and disposition. Triage Nursing notes reviewed. Prior medical records reviewed Vital Signs: reviewed and remarkable for elevated blood pressure. Differential diagnosis: Infection, dehydration, metabolic abnormality, hypo/hyperglycemia, electrolyte disturbance, anemia, hypoxia, cardiac sources, intracerebral event, toxicologic, neurologic, as well as other pathologies. ER treatment provided: See below Diagnostics interpreted by me: ECG: EKG was obtained in the emergency department. My interpretation is atrial fibrillation at 63 bpm. No PVCs were noted. Early transition was noted with lateral ST depression with T wave inversions. This was compared to a tracing from July 14, 2022. No changes were noted. Cardiac Monitoring: An order was placed for continuous cardiac monitoring. The monitor shows a rate of 72 bpm with atrial fibrillation. Laboratory studies: As stated above and show below. Imaging studies: See below. Radiographic imaging was reviewed by myself Consultation(s): I discussed this case with Dr Nguyen I discussed this case with Angélica who is on-call for the [facility]ist group. ED COURSE: Procedures: none Critical Care: I have personally spent greater than 35 minutes of critical care time in the direct management of this patient. This includes bedside care, interpretation of diagnostic studies, and testing, discussion with consultants, patient, and family members, and other required patient management activities. This 35 min utes is in excess of all separately billable procedures. Past Med/Surg History Medical History CAD (coronary artery disease) Cerebrovascular disease Elevated troponin Hypertension Hypertensive encephalopathy Surgical History Hx of CABG Family History Mother Stroke Social History Smoking Status: Former smoker Tobacco Type: Cigarettes Hx Alcohol Use: No Hx Substance Use: No Preferred Language: Greek Communication Ability: Impaired Communication Ability Comment: speak loud [employer] Required: No Beliefs That Will Affect Care: Faith marital status: Current Living Situation: Spouse Current Living Situation Comment: spouse is having difficulty with his care/ failure to thrive current occupational status: retired Feels Safe at Home: Yes Assistive Devices: Walker Allergies Allergies Allergy/AdvReac Type Severity Reaction Status Date / Time No Known Allergies Verified 05/10/22 18:25 Home Meds Home Medications Medication Instructions Recorded Confirmed apixaban 5 mg tablet (Eliquis) 5 mg PO AMPM 04/20/22 02/13/23 atorvastatin 80 mg tablet 80 mg PO QAM 04/20/22 02/13/23 lisinopril 20 mg tablet 20 mg PO HS 04/20/22 02/13/23 Prevagen 1 tab PO DAILY 05/10/22 02/13/23 metoprolol succinate 50 mg 50 mg PO HS 07/14/22 02/13/23 tablet,extended release 24 hr clonidine HCl 0.1 mg tablet 0.1 mg PO TID 02/13/23 02/13/23 levothyroxine 50 mcg tablet 50 mcg PO [id number]@0630 02/13/23 02/13/23 (Synthroid) levothyroxine 50 mcg tablet 75 mcg PO [id number]@0630 02/13/23 02/13/23 (Synthroid) metoprolol succinate 50 mg 100 mg PO DAILY 02/13/23 02/13/23 tablet,extended release 24 hr sertraline 25 mg tablet 25 mg PO DAILY 02/13/23 02/13/23 Previous Rx's Medication Instructions Recorded aspirin 81 mg tablet,delayed 81 mg PO QAM #30 tabs 08/29/21 release thiamine HCl (vitamin B1) 100 mg 100 mg PO QAM #30 tabs 08/29/21 tablet spironolactone 25 mg tablet 25 mg PO QAM #30 tabs 05/20/22 Results & Data (ED) Vital Signs Vital Signs - 24 hr 02/13/23 12:22 02/13/23 12:22 02/13/23 12:22 Temperature 37 C Temperature Source Oral Pulse Rate 71 Pulse Rate [Apical] 71 Pulse Rate from SpO2 Sensor Pulse Rhythm Irregular Pulse Rhythm [Apical] Irregular Pulse Strength Normal Pulse Strength [Apical] Normal Respiratory Rate 35 H 35 H Respiratory Effort / Characteristics Labored Labored Respiratory Depth Shallow Shallow Respiratory Pattern Tachypnea Tachypnea Blood Pressure 156/75 H Blood Pressure [Left Arm] 156/75 H Blood Pressure Mean 102 Blood Pressure Mean [Left Arm] 102 Blood Pressure Position Lying Pulse Oximetry 91 91 Oxygen Delivery Method Room Air Room Air Room Air Oxygen Flow Rate Sepsis Recent Fever Within 48 Hours No Sepsis New/Unexplained Change in Mental Status No Sepsis Action Taken by Nursing No Action Required 02/13/23 12:39 02/13/23 12:38 02/13/23 12:40 Temperature Temperature Source Pulse Rate 68 68 Pulse Rate [Apical] Pulse Rate from SpO2 Sensor 69 Pulse Rhythm Pulse Rhythm [Apical] Pulse Strength Pulse Strength [Apical] Respiratory Rate 20 Respiratory Effort / Characteristics Respiratory Depth Respiratory Pattern Blood Pressure 128/79 Blood Pressure [Left Arm] Blood Pressure Mean 95 Blood Pressure Mean [Left Arm] Blood Pressure Position Pulse Oximetry 92 Oxygen Delivery Method Oxygen Flow Rate Sepsis Recent Fever Within 48 Hours Sepsis New/Unexplained Change in Mental Status Sepsis Action Taken by Nursing 02/13/23 12:40 02/13/23 12:45 02/13/23 12:45 Temperature Temperature Source Pulse Rate 71 72 Pulse Rate [Apical] Pulse Rate from SpO2 Sensor 71 74 Pulse Rhythm Pulse Rhythm [Apical] Pulse Strength Pulse Strength [Apical] Respiratory Rate 19 20 Respiratory Effort / Characteristics Respiratory Depth Respiratory Pattern Blood Pressure 147/89 H Blood Pressure [Left Arm] Blood Pressure Mean 108 Blood Pressure Mean [Left Arm] Blood Pressure Position Pulse Oximetry 94 96 Oxygen Delivery Method Nasal Cannula Oxygen Flow Rate 2 Sepsis Recent Fever Within 48 Hours Sepsis New/Unexplained Change in Mental Status Sepsis Action Taken by Nursing 02/13/23 13:00 02/13/23 13:00 02/13/23 13:15 Temperature Temperature Source Pulse Rate 72 Pulse Rate [Apical] Pulse Rate from SpO2 Sensor Pulse Rhythm Pulse Rhythm [Apical] Pulse Strength Pulse Strength [Apical] Respiratory Rate 27 H Respiratory Effort / Characteristics Respiratory Depth Respiratory Pattern Blood Pressure 164/110 H 140/96 Blood Pressure [Left Arm] Blood Pressure Mean 128 110 Blood Pressure Mean [Left Arm] Blood Pressure Position Pulse Oximetry 99 Oxygen Delivery Method Nasal Cannula Oxygen Flow Rate 2 Sepsis Recent Fever Within 48 Hours Sepsis New/Unexplained Change in Mental Status Sepsis Action Taken by Nursing 02/13/23 13:15 02/13/23 13:30 02/13/23 13:30 Temperature Temperature Source Pulse Rate 60 72 Pulse Rate [Apical] Pulse Rate from SpO2 Sensor Pulse Rhythm Pulse Rhythm [Apical] Pulse Strength Pulse Strength [Apical] Respiratory Rate 13 15 Respiratory Effort / Characteristics Respiratory Depth Respiratory Pattern Blood Pressure 163/102 H Blood Pressure [Left Arm] Blood Pressure Mean 122 Blood Pressure Mean [Left Arm] Blood Pressure Position Pulse Oximetry 98 97 Oxygen Delivery Method Nasal Cannula Nasal Cannula Oxygen Flow Rate 2 2 Sepsis Recent Fever Within 48 Hours Sepsis New/Unexplained Change in Mental Status Sepsis Action Taken by Nursing 02/13/23 13:45 02/13/23 13:45 02/13/23 14:00 Temperature Temperature Source Pulse Rate 72 Pulse Rate [Apical] Pulse Rate from SpO2 Sensor 72 Pulse Rhythm Pulse Rhythm [Apical] Pulse Strength Pulse Strength [Apical] Respiratory Rate 22 Respiratory Effort / Characteristics Respiratory Depth Respiratory Pattern Blood Pressure 173/113 H 141/84 H Blood Pressure [Left Arm] Blood Pressure Mean 133 103 Blood Pressure Mean [Left Arm] Blood Pressure Position Pulse Oximetry 95 Oxygen Delivery Method Oxygen Flow Rate Sepsis Recent Fever Within 48 Hours Sepsis New/Unexplained Change in Mental Status Sepsis Action Taken by Nursing 02/13/23 14:00 Temperature Temperature Source Pulse Rate 72 Pulse Rate [Apical] Pulse Rate from SpO2 Sensor Pulse Rhythm Pulse Rhythm [Apical] Pulse Strength Pulse Strength [Apical] Respiratory Rate 15 Respiratory Effort / Characteristics Respiratory Depth Respiratory Pattern Blood Pressure Blood Pressure [Left Arm] Blood Pressure Mean Blood Pressure Mean [Left Arm] Blood Pressure Position Pulse Oximetry Oxygen Delivery Method Oxygen Flow Rate Sepsis Recent Fever Within 48 Hours Sepsis New/Unexplained Change in Mental Status Sepsis Action Taken by Jail Medications Current Medication List: was personally reviewed by me Laboratory Data Attestation: I reviewed the patient's lab results. 02/13/23 12:40 02/13/23 12:40 Lab Results 02/13/23 02/13/23 02/13/23 Range/Units 12:40 12:40 12:40 WBC 8.97 (4.8-10.8) K/ul RBC 4.74 (4.70-6.10) M/uL Hgb 12.7 L (14.0-18.0) g/dl POC Hgb (14.0-18.0) g/dl Hct 39.5 L (42.0-52.0) % POC Hct (42-52) % MCV 83.3 (80.0-100.0) fL MCH 26.8 (25.0-34.0) pg MCHC 32.2 (32.0-36.0) g/dL RDW Std Deviation 46.6 H (36.4-46.3) fL RDW Coeff of Satya 15.4 H (11.5-14.5) % Plt Count 238 (130-400) K/uL MPV 9.9 (9.4-12.4) fL Immature Gran % (Auto) 0.2 % Neut % (Auto) 74.3 % Lymph % (Auto) 13.7 % [place] % (Auto) 5.9 % Eos % (Auto) 5.7 % Baso % (Auto) 0.2 % Neut # (Auto) 6.66 H (1.40-6.50) K/uL Lymph # (Auto) 1.23 (1.2-3.4) K/uL [place] # (Auto) 0.53 (0.11-0.59) K/uL Eos # (Auto) 0.51 H (0-0.50) K/uL Baso # (Auto) 0.02 (0-0.2) K/uL Immature Gran # (Auto) 0.02 (0.01-0.20) K/uL PT 12.4 H (9.0-12.0) Seconds INR 1.1 (0.9-1.1) APTT 29.3 (21.0-31.0) Seconds PTT Ratio 1.0 POC Sodium (135-144) mmol/L Sodium 139 (136-145) mmol/L POC Potassium (3.3-5.0) mmol/L Potassium 4.3 (3.5-5.1) mmol/L POC Chloride (101-112) mmol/L Chloride 108 H (98-107) mmol/L Carbon Dioxide 28 (21-32) mmol/L POC Total CO2 (24-31) mmol/L Anion Gap 3 (3-11) POC Anion Gap (16-25) mmol/L POC BUN (7-18) mg/dl BUN 19 (6-23) mg/dl Creatinine 1.19 (0.6-1.4) mg/dl POC Creatinine (0.6-1.3) mg/dl Est Cr Clr Drug Dosing 61.2 ml/min Est GFR ( Amer) 66.9 ml/min Est GFR (Non-Af Amer) 57.8 ml/min BUN/Creatinine Ratio 16.0 (10-20) Glucose 130 H (70-99(Fasting)) mg/dl POC Glucose (other) (70-99) mg/dl Calcium 8.2 L (8.6-10.3) mg/dl POC Ioniz Calcium Patsy (1.12-1.32) mmol/l Magnesium 1.9 (1.7-2.4) mg/dl Total Bilirubin 0.5 (0.2-1.0) mg/dl AST 10 L (13-39) U/L ALT 6 L (7-52) U/L Alkaline Phosphatase 87 (34-104) U/L Troponin I High Sens 14.0 (0-20) pg/ml Total Protein 5.7 L (6.0-8.3) gm/dl Albumin 3.3 L (3.4-5.0) gm/dl Globulin 2.4 L (2.5-4.0) gm/dl Albumin/Globulin Ratio 1.4 (0.9-2) 02/13/ Range/Units 12:40 WBC (4.8-10.8) K/ul RBC (4.70-6.10) M/uL Hgb (14.0-18.0) g/dl POC Hgb 12.9 L (14.0-18.0) g/dl Hct (42.0-52.0) % POC Hct 38 L (42-52) % MCV (80.0-100.0) fL MCH (25.0-34.0) pg MCHC (32.0-36.0) g/dL RDW Std Deviation (36.4-46.3) fL RDW Coeff of Satya (11.5-14.5) % Plt Count (130-400) K/uL MPV (9.4-12.4) fL Immature Gran % (Auto) % Neut % (Auto) % Lymph % (Auto) % [place] % (Auto) % Eos % (Auto) % Baso % (Auto) % Neut # (Auto) (1.40-6.50) K/uL Lymph # (Auto) (1.2-3.4) K/uL [place] # (Auto) (0.11-0.59) K/uL Eos # (Auto) (0-0.50) K/uL Baso # (Auto) (0-0.2) K/uL Immature Gran # (Auto) (0.01-0.20) K/uL PT (9.0-12.0) Seconds INR (0.9-1.1) APTT (21.0-31.0) Seconds PTT Ratio POC Sodium 141 (135-144) mmol/L Sodium (136-145) mmol/L POC Potassium 4.3 (3.3-5.0) mmol/L Potassium (3.5-5.1) mmol/L POC Chloride 104 (101-112) mmol/L Chloride (98-107) mmol/L Carbon Dioxide (21-32) mmol/L POC Total CO2 25 (24-31) mmol/L Anion Gap (3-11) POC Anion Gap 17.0 (16-25) mmol/L POC BUN 20 H (7-18) mg/dl BUN (6-23) mg/dl Creatinine (0.6-1.4) mg/dl POC Creatinine 1.2 (0.6-1.3) mg/dl Est Cr Clr Drug Dosing ml/min Est GFR ( Amer) ml/min Est GFR (Non-Af Amer) ml/min BUN/Creatinine Ratio (10-20) Glucose (70-99(Fasting)) mg/dl POC Glucose (other) 131 H (70-99) mg/dl Calcium (8.6-10.3) mg/dl POC Ioniz Calcium Patsy 1.09 L (1.12-1.32) mmol/l Magnesium (1.7-2.4) mg/dl Total Bilirubin (0.2-1.0) mg/dl AST (13-39) U/L ALT (7-52) U/L Alkaline Phosphatase (34-104) U/L Troponin I High Sens (0-20) pg/ml Total Protein (6.0-8.3) gm/dl Albumin (3.4-5.0) gm/dl Globulin (2.5-4.0) gm/dl Albumin/Globulin Ratio (0.9-2) Administered Medications Discontinued Medications Aspirin (Aspirin 300 Mg Supp) 300 mg OR ONE ONE Stop: 02/13/23 14:34 Last Admin: 02/13/23 15:10 Dose: 300 mg Documented By: ALONDRA Ioversol (Ioversol 350 Mg 125ml Prefilled Syringe) 120 ml IV ONCE ONE Stop: 02/13/23 12:26 Last Admin: 02/13/23 12:26 Dose: 120 ml Documented By: AIME Imaging Data Attestation: I personally reviewed and interpreted this imaging study as follows: My Impression: 1 view chest x-ray was obtained in the emergency department. My interpretation is no free air or definite infiltrate, final report below. CT of the brain was obtained in the emergency department. My interpretation is no intracranial hemorrhage or mass effect, final report below. Radiologist's Impression: Chest X-Ray 02/13/23 12:03 XR chest 1V portable CLINICAL HISTORY: neuro deficit, acute stroke suspected COMPARISON STUDY: Chest CT May 12, 2022. Chest radiograph November 15, 2022. FINDINGS: There is no pneumothorax or pleural effusion. Cardiomegaly is unchanged. There is no evidence for pulmonary edema. There is no consolidation to suggest pneumonia. IMPRESSION: No acute cardiopulmonary findings. Cardiomegaly. ACT 112: Negative or not required by law. Electronically signed by: Arsalan Garcia M.D. 02/13/2023 2:[address] 02/13/23 12:03 CT OF THE HEAD WITHOUT CONTRAST CLINICAL HISTORY: neuro deficit, acute stroke suspected COMPARISON STUDY: Head CT, CTA of the head and MRI the brain July 14, 2022. TECHNIQUE: Helical axial images of the head were obtained without IV contrast. Automated exposure control was utilized for the study. A dose lowering technique was utilized adhering to the principles of ALARA. FINDINGS: No acute intracranial hemorrhage, midline shift or mass effect is present. The ventricular system is stable. White matter hypodensities are unchanged and favor small vessel disease. An old small stroke within the right centrum semiovale is unchanged. The basal cisterns are patent. No extra-axial collections are present. There are no findings to suggest acute dural sinus thrombosis or acute territorial infarct. No significant calvarial abnormalities are present. Visualized portions of the sinuses and mastoid air cells are clear. IMPRESSION: No acute intracranial findings. No change in appearance of the brain. ACT 112: Negative or not required by law. Electronically signed by: Arsalan Garcia M.D. 02/13/2023 1:28 PM Head CTA 02/13/23 12:03 CTA ANGIOGRAPHY OF THE HEAD CLINICAL HISTORY: neuro deficit, acute stroke suspected COMPARISON STUDY: MRI of the brain July 14, 2022 and CTA of the head July 14, 2022. TECHNIQUE: Helical axial images of the head were obtained following uneventful intravenous administration of 120 cc of Optiray. Sagittal and coronal reconstructions were viewed as well as maximal intensity projections on an independent 3-D workstation. Automated exposure control was utilized for the s tudy. A dose lowering technique was utilized adhering to the principles of ALARA. FINDINGS: No intracranial aneurysm is identified. No large vessel occlusion is noted. Severe multifocal stenoses within the intracranial vessels are similar to CT of July 14, 2022 and include severe stenoses within the proximal left A1 segment, the right A2 segment, the basilar artery and the right posterior cerebral artery. There is persistence of the bilateral posterior cerebral arteries. The right vertebral artery is diminutive. Diminished flow within the distal right vertebral artery which ends in PICA unchanged. The appearance of the intracranial circulation is unchanged. IMPRESSION: 1. No change since CTA of July 14, 2022. Severe multifocal stenoses, as detailed above. 2. No large vessel occlusion. 3. No intracranial aneurysm. ACT 112: Negative or not required by law. Electronically signed by: Arsalan Garcia M.D. 02/13/2023 1:37 PM Neck CTA 02/13/23 12:03 CT ANGIOGRAPHY OF THE NECK WITH CONTRAST CLINICAL HISTORY: neuro deficit, acute stroke suspected COMPARISON STUDY: CT of the neck July 14, 2022. Technique: CT angiography of the carotid and vertebral arteries was obtained using Optiray and 3D reconstruction on an independent workstation. NASCET criteria was utilized. Automated exposure control was utilized for the study. A dose lowering technique was utilized adhering to the principles of ALARA. CT DOSE: 2007.13 mGy.cm Findings: Ground glass opacities are noted within the visualized lung apices. There is no cervical spine fracture. No cervical lymphadenopathy is present. There is tortuosity of the proximal right common carotid artery. There is mild plaque within the proximal right internal carotid artery without stenosis. There is moderate plaque within the proximal left internal carotid artery with approximate 50% stenosis. This has mildly increased since CT of July 14, 2022. The right vertebral artery is diminutive. Diminished flow within the distal cervical and intracranial portion of the right vertebral artery are maintained unchanged. Left vertebral artery is dominant. CTA of the head will be reported separately. IMPRESSION: 1. 50% stenosis of the proximal left internal carotid artery which is mildly progressed since CTA of July 14, 2022. This is due to moderate atherosclerotic plaque. 2. Otherwise, no change in appearance of the major vessels of the neck, as described above. ACT 112: Negative or not required by law. Electronically signed by: Arsalan Garcia M.D. 02/13/2023 1:33 PM Brain MRI 02/13/23 14:02 MRI OF THE BRAIN WITHOUT CONTRAST CLINICAL HISTORY: Cerebrovascular accident. Left facial droop. Left-sided weakness. COMPARISON STUDY: MRI of the brain July 14, [address] and CTA of the head performed earlier today. TECHNIQUE: Utilizing a 1.5 Kath magnet and dedicated coil, multiplanar, multiecho imaging of the brain was performed without IV contrast. FINDINGS: A few small foci of restricted diffusion within the right basal ganglia measure up to 1.2 cm. These are hypointense on the ADC map. There is also a 0.8 cm periventricular focus restricted diffusion within the posterior left temporal lobe on image 12 of 22. These represent small acute infarcts. There is no mass effect. There is no acute hemorrhage. Ventricular system is stable. Basal cisterns are patent. There are no extra axial collections. Extensi ve white matter T2 hyperintense foci are unchanged and represent small vessel disease. A few additional old small infarcts are unchanged since previous MRI. Calvarial signal is normal. IMPRESSION: 1. A few small acute infarcts measuring up to 1.2 cm. These are within the right basal ganglia and periventricular left temporal lobe. No mass effect. No acute hemorrhage. 2. Moderate atrophy with extensive small vessel disease and a few old infarcts. ACT 112: Negative or not required by law. Electronically signed by: Arsalan Garcia M.D. 02/13/2023 3:22 PM Discharge Plan Visit Data Chief Complaint: Stroke Alert Stated Complaint: STROKE ALERT ED Provider: Naren Griffiths Discharge Problem: Acute ischemic stroke, Atrial fibrillation Patient Disposition: Being Evaluated by Hospitalist Forms Stand Alone Forms: My [facility] Prescriptions Prescriptions: No Action atorvastatin 80 mg tablet 80 mg PO QAM Eliquis 5 mg tablet 5 mg PO AMPM lisinopril 20 mg tablet 20 mg PO HS metoprolol succinate 50 mg Tablet Extended Release 24 Hr 50 mg PO HS thiamine HCl (vitamin B1) 100 mg Tablet 100 mg PO QAM Qty: 30 0RF Rx Instructions: OTC aspirin 81 mg Tablet,Delayed Release (Dr/Ec) 81 mg PO QAM Qty: 30 0RF Rx Instructions: unable to verify with home delivery pharmacy Prevagen 1 tab PO DAILY Rx Instructions: unable to verify with home delivery pharmacy spironolactone 25 mg Tablet 25 mg PO QAM Qty: 30 0RF clonidine HCl 0.1 mg tablet 0.1 mg PO TID Rx Instructions: 1 am, 1 at noon, 1 pm levothyroxine [Synthroid] 50 mcg tablet 50 mcg PO [id number]@0630 Rx Instructions: per home delivery, instructions on how to take were enclosed with medication sertraline 25 mg tablet 25 mg PO DAILY metoprolol succinate 50 mg tablet extended release 24 hr 100 mg PO DAILY levothyroxine [Synthroid] 50 mcg tablet 75 mcg PO SuTuThSa@0630 Referrals Referrals: Светлана Jones MD [Primary Care Provider] -
[2023-02-13 12:53] LABS: iSTAT Creatinine 1.2 mg/dl (0.6-1.3); iSTAT Hemoglobin 12.9 g/dl (14.0-18.0); iSTAT Ionized Calcium 1.09 mmol/l (1.12-1.32); iSTAT Potassium 4.3 mmol/L (3.3-5.0)
[2023-02-13 12:54] LABS: Basophils # (auto) 0.02 K/uL (0-0.2); Basophils % (auto) 0.2 %; Eosinophils # (auto) 0.51 K/uL (0-0.50); Eosinophils % (auto) 5.7 %; Hematocrit (blood only) 39.5 % (42.0-52.0); Hemoglobin 12.7 g/dl (14.0-18.0); Immature Granulocytes # (auto) 0.02 K/uL (0.01-0.20); Immature Granulocytes % (auto) 0.2 %; Lymphocytes # (auto) 1.23 K/uL (1.2-3.4); Lymphocytes % (auto) 13.7 %; Mean Corpuscular Hemoglobin 26.8 pg (25.0-34.0); Mean Corpuscular Hgb Conc 32.2 g/dL (32.0-36.0); Mean Corpuscular Volume 83.3 fL (80.0-100.0); Mean Platelet Volume 9.9 fL (9.4-12.4); Monocytes # (auto) 0.53 K/uL (0.11-0.59); Monocytes % (auto) 5.9 %; Neutrophils # (auto) 6.66 K/uL (1.40-6.50); Neutrophils % (auto) 74.3 %; Platelet Count 238 K/uL (130-400); RDW Coefficient of Variation 15.4 % (11.5-14.5); RDW Standard Deviation 46.6 fL (36.4-46.3); Red Blood Count 4.74 M/uL (4.70-6.10); White Blood Count 8.97 K/ul (4.8-10.8)
[2023-02-13 13:09] LABS: Albumin Globulin Ratio 1.4 (0.9-2); Albumin Level 3.3 gm/dl (3.4-5.0); Bilirubin,Total 0.5 mg/dl (0.2-1.0); Calcium 8.2 mg/dl (8.6-10.3); Creatinine Clr Calc Pharmacy 61.2 ml/min; Est GFR (African American) 66.9 ml/min; Est GFR (Non-African American) 57.8 ml/min; Globulin 2.4 gm/dl (2.5-4.0); Magnesium 1.9 mg/dl (1.7-2.4); Potassium 4.3 mmol/L (3.5-5.1); Total Protein 5.7 gm/dl (6.0-8.3)
[2023-02-13 13:22] LABS: INR 1.1 (0.9-1.1); Partial Thromboplastin Time 29.3 Seconds (21.0-31.0); Prothrombin Time 12.4 Seconds (9.0-12.0)
--- NOTE | 2023-02-13 13:30 | CT Scan Report ---
CT OF THE HEAD WITHOUT CONTRAST CLINICAL HISTORY: neuro deficit, acute stroke suspected COMPARISON STUDY: Head CT, CTA of the head and MRI the brain July 14, 2022. TECHNIQUE: Helical axial images of the head were obtained without IV contrast. Automated exposure con trol was utilized for the study. A dose lowering technique was utilized adhering to the principles o f ALARA. FINDINGS: No acute intracranial hemorrhage, midline shift or mass effect is present. The ventricular system is stable. White matter hypodensities are unchanged and favor small vessel disease. An old sma ll stroke within the right centrum semiovale is unchanged. The basal cisterns are patent. No extra-ax ial collections are present. There are no findings to suggest acute dural sinus thrombosis or acute t erritorial infarct. No significant calvarial abnormalities are present. Visualized portions of the si nuses and mastoid air cells are clear. IMPRESSION: No acute intracranial findings. No change in appearance of the brain. ACT 112: Negative or not required by law. Electronically signed by: Arsalan Garcia M.D. 02/13/2023 1:28 PM
--- NOTE | 2023-02-13 13:35 | CT Scan Report ---
CT ANGIOGRAPHY OF THE NECK WITH CONTRAST CLINICAL HISTORY: neuro deficit, acute stroke suspected COMPARISON STUDY: CT of the neck July 14, 2022. Technique: CT angiography of the carotid and vertebral arteries was obtained using Optiray and 3D rec onstruction on an independent workstation. NASCET criteria was utilized. Automated exposure control was utilized for the study. A dose lowering technique was utilized adhering to the principles of ALA RA. CT DOSE: 2007.13 mGy.cm Findings: Ground glass opacities are noted within the visualized lung apices. There is no cervical sp ine fracture. No cervical lymphadenopathy is present. There is tortuosity of the proximal right commo n carotid artery. There is mild plaque within the proximal right internal carotid artery without sten osis. There is moderate plaque within the proximal left internal carotid artery with approximate 50% stenosis. This has mildly increased since CT of July 14, 2022. The right vertebral artery is dimi nutive. Diminished flow within the distal cervical and intracranial portion of the right vertebral ar nicola are maintained unchanged. Left vertebral artery is dominant. CTA of the head will be reported se ericka. IMPRESSION: 1. 50% stenosis of the proximal left internal carotid artery which is mildly progressed since CTA of July 14, 2022. This is due to moderate atherosclerotic plaque. 2. Otherwise, no change in appearance of the major vessels of the neck, as described above. ACT 112: Negative or not required by law. Electronically signed by: Arsalan Garcia M.D. 02/13/2023 1:33 PM
--- NOTE | 2023-02-13 13:40 | CT Scan Report ---
CTA ANGIOGRAPHY OF THE HEAD CLINICAL HISTORY: neuro deficit, acute stroke suspected COMPARISON STUDY: MRI of the brain July 14, 2022 and CTA of the head July 14, 2022. TECHNIQUE: Helical axial images of the head were obtained following uneventful intravenous administr ation of 120 cc of Optiray. Sagittal and coronal reconstructions were viewed as well as maximal inten sity projections on an independent 3-D workstation. Automated exposure control was utilized for the study. A dose lowering technique was utilized adhering to the principles of ALARA. FINDINGS: No intracranial aneurysm is identified. No large vessel occlusion is noted. Severe multifoc al stenoses within the intracranial vessels are similar to CT of July 14, 2022 and include severe stenoses within the proximal left A1 segment, the right A2 segment, the basilar artery and the right posterior cerebral artery. There is persistence of the bilateral posterior cerebral arteries. The right vertebral artery is diminutive. Diminished flow within the distal right vertebral artery wh ich ends in PICA unchanged. The appearance of the intracranial circulation is unchanged. IMPRESSION: 1. No change since CTA of July 14, 2022. Severe multifocal stenoses, as detailed above. 2. No large vessel occlusion. 3. No intracranial aneurysm. ACT 112: Negative or not required by law. Electronically signed by: Arsalan Garcia M.D. 02/13/2023 1:37 PM
--- NOTE | 2023-02-13 14:07 | History & Physical Report ---
Date of Service February 13, 2023 Assessment & Plan (1) Acute ischemic stroke: (2) Atrial fibrillation: (3) CAD (coronary artery disease): (4) Cerebrovascular disease: (5) CHF (congestive heart failure): Plan This is a 77 year-old male who has a significant past medical history of atrial fibrillation anticoagulated on Eliquis, chronic HFpEF, HTN, HLD, history of CVA, CAD with hx of CABG, CKD stage III, BPH who presents to ED secondary to strokelike symptoms. Acute ischemic stroke within the right basal ganglia and periventricular left temporal lobe with left-sided facial droop, dysarthria and worsened left-sided weakness hx of acute ischemic CVA aug 2021 Vascular dementia Admit to telemetry Consult neurology, did discuss with on-call neurologist Dr. Polk who recommended stop Aspirin in favor of Plavix 75 mg daily and continue Eliquis when NPO lifted Patient currently is n.p.o. due to failed dysphagia screen in setting of facial We will hold all medications until seen by speech and diet advanced At that time will need medications resumed and switch aspirin to plavix Patient ordered 300 mg aspirin per rectum at recommendation of telestroke Give gentle fluid while n.p.o., NSS at 60 cc/h x 1 L Continue high intensity statin A1c lipid panel in a.m. PT/OT, echo Patient likely to need rehab, family at bedside and do not wish to pursue encompass Atrial fibrillation, chronic Patient on Eliquis and metoprolol will place on as needed Lopressor while n.p.o. Carotid Artery Stenosis will need establishment with vascular as OP if not done so already prox L ICA 50% stenosis on ASA/Statin Chronic HFpEF CAD with hx of CABG x 4 in 2009 in [facility] Daily weight, strict I's and O's On metoprolol and Aldactone as outpatient Hypertension Patient on clonidine, lisinopril, metoprolol and Aldactone Per patient recently started on clon[facility] by [facility] December We will hold BP meds for now and allow for permissive hypertension the next 24 hours Hypocalcemia ionized ca low, give 1g calc gluconate follow Hypothyroidism Levothyroxine DVT prophylaxis: Patient on Eliquis, resume when able, SCDs A total of 80 was spent coordinating, documenting, and providing care for this patient excluding time spent in the performance of separately billed services. This included personally viewing all current laboratories and imaging studies, medication reconciliation, outpatient chart review, and discussion with specialists. History of Present Illness Chief Complaint: Stroke like sx Primary Care Provider: Светлана Jones MD This is a 77 year-old male who has a significant past medical history of atrial fibrillation anticoagulated on Eliquis, chronic HFpEF, HTN, HLD, history of CVA, CAD with hx of CABG, CKD stage III, BPH who presents to ED secondary to strokelike symptoms. and daughter are at bedside. had difficulty getting patient out of the bed this morning and therefore she contacted her nilton paredes to come with assistance. While waiting for her daughter to come with assistance she was able to get into the living room in a chair. When daughter arrived at approximately 1115 she noted significant facial droop on the left side and at that time he had increased left-sided weakness. Symptoms to likely occurred somewhere between 1045 and 1115 as brought patient to living room around 1045 and did not notice any deficits. Of significance patient does have vascular dementia at baseline from previous strokes. He last seen a stroke in August 2021 which also affected his left side and he continues to have residual left-sided weakness, memory deficits and slight dysarthria. At baseline he ambulates with a walker but does require much assistance. He currently is on aspirin, statin and Eliquis in setting of A-fib. He has been compliant with medications and has not missed a dose. His last dose of Eliquis was this morning. Prior to today states that patient was at baseline prior to today. In regards to patient's vascular dementia he does typically know familiar faces and family, but occasionally asks his who she is. He is also very hard of hearing which also complicates his memory. ROS difficult to obtain from patient due to dysarthria and cognition. Patient is incontinent of urine at baseline and wears depends but is not incontinent of stool.In ED patient was initially hypertensive. Initial head CT negative for hemorrhage. No change of head CTA since July 14, 2022 which revealed severe multifocal stenoses, no large vessel occlusion.50% stenosis of the proximal left internal carotid artery which is mildly progressed since CTA of July 14, 2022. This is due to moderate atherosclerotic plaque. He was seen and evaluated by telestroke. Per ER provider it was recommended to be administered loading dose of aspirin; however, this was not done. Allergies Allergy/AdvReac Type Severity Reaction Status Date / Time No Known Allergies Verified 05/10/22 18:25 Home Medications Medication Instructions Recorded Confirmed Type aspirin 81 mg tablet,delayed 81 mg PO QAM #30 tabs 08/29/21 02/13/23 Rx release thiamine HCl (vitamin B1) 100 mg 100 mg PO QAM #30 tabs 08/29/21 02/13/23 Rx tablet apixaban 5 mg tablet (Eliquis) 5 mg PO AMPM 04/20/22 02/13/23 History atorvastatin 80 mg tablet 80 mg PO QAM 04/20/22 02/13/23 History lisinopril 20 mg tablet 20 mg PO HS 04/20/22 02/13/23 History Prevagen 1 tab PO DAILY 05/10/22 02/13/23 History spironolactone 25 mg tablet 25 mg PO QAM #30 tabs 05/20/22 02/13/23 Rx metoprolol succinate 50 mg 50 mg PO HS 07/14/22 02/13/23 History tablet,extended release 24 hr clonidine HCl 0.1 mg tablet 0.1 mg PO TID 02/13/23 02/13/23 History levothyroxine 50 mcg tablet 50 mcg PO MOWEFR@0630 02/13/23 02/13/23 History (Synthroid) levothyroxine 50 mcg tablet 75 mcg PO SuTuThSa@0630 02/13/23 02/13/23 History (Synthroid) metoprolol succinate 50 mg 100 mg PO DAILY 02/13/23 02/13/23 History tablet,extended release 24 hr sertraline 25 mg tablet 25 mg PO DAILY 02/13/23 02/13/23 History Past Med/Surg History Medical History CAD (coronary artery disease) Cerebrovascular disease Elevated troponin Hypertension Hypertensive encephalopathy Surgical History Hx of CABG Family History Mother Stroke Social History Smoking Status: Never smoker Tobacco Type: Cigarettes Second Hand Exposure: No; Do You Dip or Chew Tobacco: No; Tobacco Cessation Education Requested by Patient: No Hx Alcohol Use: No Hx Substance Use: No Preferred Language: [place] Communication Ability: Impaired Communication Ability Comment: speak loud Lever Operator Required: No Beliefs That Will Affect Care: None marital status: Current Living Situation: Spouse Current Living Situation Comment: spouse is having difficulty with his care/ failure to thrive current occupational status: retired Other Information That Helps Us Care for You: No Feels Safe at Home: Yes Safety Concerns: Feels Safe At This Time Assistive Devices: Walker Review of Systems Review of Systems: Unobtainable due to cognitive status Physical Exam Physical Exam: Constitutional: Elderly, chronically ill M, WD/WN, vitals as above, NAD, sitting up in bed, L Facial droop Head: Normocephalic, Atraumatic Eyes: PERRL, conjunctivae normal, anicteric sclerae ENMT: external ear and nose normal, oropharynx normal dry membranes, L facial droop Neck: trachea midline, no thyromegaly normal visual inspection Respiratory: normal respiratory effort, lungs clear to auscultation, no wheeze, rales, rhonchi. 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, 3/5 LLE, 2/5 LUE Skin: no rashes, warm and dry normal turgor Neurologic: PERRL, EOMI, accommodation nl, + face palsy, + dysarthria Psychiatric: A+O but not oriented, euthymic affect Lymphatic: no cervical or axillary lymphadenopathy : deferred Results & Data Results & Data Vital Signs (Past 12 Hours) Vital Signs Temp Pulse Pulse Resp BP BP Pulse Ox 02/13/23 13:00 72 27 H 99 02/13/23 13:00 164/110 H 02/13/23 12:45 72 20 96 02/13/23 12:45 147/89 H 02/13/23 12:40 71 19 94 02/13/23 12:40 128/79 02/13/23 12:38 68 20 92 02/13/23 12:39 68 02/13/23 12:22 02/13/23 12:22 71 35 H 156/75 H 91 02/13/23 12:22 37 C 71 35 H 156/75 H 91 O2 Del Method O2 Flow Rate 02/13/23 13:00 Nasal Cannula 2 02/13/23 13:00 02/13/23 12:45 02/13/23 12:45 02/13/23 12:40 Nasal Cannula 2 02/13/23 12:40 02/13/23 12:38 02/13/23 12:39 02/13/23 12:22 Room Air 02/13/23 12:22 Room Air 02/13/23 12:22 Room Air Diagnostic Findings Chest X-Ray 02/13/23 12:03 XR chest 1V portable CLINICAL HISTORY: neuro deficit, acute stroke suspected COMPARISON STUDY: Chest CT May 12, 2022. Chest radiograph November 15, 2022. FINDINGS: There is no pneumothorax or pleural effusion. Cardiomegaly is unchanged. There is no evidence for pulmonary edema. There is no consolidation to suggest pneumonia. IMPRESSION: No acute cardiopulmonary findings. Cardiomegaly. ACT 112: Negative or not required by law. Electronically signed by: Arsalan Garcia M.D. 02/13/2023 2:[address] 02/13/23 12:03 CT OF THE HEAD WITHOUT CONTRAST CLINICAL HISTORY: neuro deficit, acute stroke suspected COMPARISON STUDY: Head CT, CTA of the head and MRI the brain July 14, 2022. TECHNIQUE: Helical axial images of the head were obtained without IV contrast. Automated exposure control was utilized for the study. A dose lowering technique was utilized adhering to the principles of ALARA. FINDINGS: No acute intracranial hemorrhage, midline shift or mass effect is present. The ventricular system is stable. White matter hypodensities are unchanged and favor small vessel disease. An old small stroke within the right centrum semiovale is unchanged. The basal cisterns are patent. No extra-axial collections are present. There are no findings to suggest acute dural sinus thrombosis or acute territorial infarct. No significant calvarial abnormalities are present. Visualized portions of the sinuses and mastoid air cells are clear. IMPRESSION: No acute intracranial findings. No change in appearance of the brain. ACT 112: Negative or not required by law. Electronically signed by: Arsalan Garcia M.D. 02/13/2023 1:28 PM Head CTA 02/13/23 12:03 CTA ANGIOGRAPHY OF THE HEAD CLINICAL HISTORY: neuro deficit, acute stroke suspected COMPARISON STUDY: MRI of the brain July 14, 2022 and CTA of the head July 14, 2022. TECHNIQUE: Helical axial images of the head were obtained following uneventful intravenous administration of 120 cc of Optiray. Sagittal and coronal reconstructions were viewed as well as maximal intensity projections on an independent 3-D workstation. Automated exposure control was utilized for the study. A dose lowering technique was utilized adhering to the principles of ALARA. FINDINGS: No intracranial aneurysm is identified. No large vessel occlusion is noted. Severe multifocal stenoses within the intracranial vessels are similar to CT of July 14, 2022 and include severe stenoses within the proximal left A1 segment, the right A2 segment, the basilar artery and the right posterior cerebral artery. There is persistence of the bilateral posterior cerebral arteries. The right vertebral artery is diminutive. Diminished flow within the distal right vertebral artery which ends in PICA unchanged. The appearance of the intracranial circulation is unchanged. IMPRESSION: 1. No change since CTA of July 14, 2022. Severe multifocal stenoses, as detailed above. 2. No large vessel occlusion. 3. No intracranial aneurysm. ACT 112: Negative or not required by law. Electronically signed by: Arsalan Garcia M.D. 02/13/2023 1:37 PM Neck CTA 02/13/23 12:03 CT ANGIOGRAPHY OF THE NECK WITH CONTRAST CLINICAL HISTORY: neuro deficit, acute stroke suspected COMPARISON STUDY: CT of the neck July 14, 2022. Technique: CT angiography of the carotid and vertebral arteries was obtained using Optiray and 3D reconstruction on an independent workstation. NASCET criteria was utilized. Automated exposure control was utilized for the study. A dose lowering technique was utilized adhering to the principles of ALARA. CT DOSE: 2007.13 mGy.cm Findings: Ground glass opacities are noted within the visualized lung apices. There is no cervical spine fracture. No cervical lymphadenopathy is present. There is tortuosity of the proximal right common carotid artery. There is mild plaque within the proximal right internal carotid artery without stenosis. There is moderate plaque within the proximal left internal carotid artery with approximate 50% stenosis. This has mildly increased since CT of July 14, 2022. The right vertebral artery is diminutive. Diminished flow within the distal cervical and intracranial portion of the right vertebral artery are maintained unchanged. Left vertebral artery is dominant. CTA of the head will be reported separately. IMPRESSION: 1. 50% stenosis of the proximal left internal carotid artery which is mildly progressed since CTA of July 14, 2022. This is due to moderate atherosclerotic plaque. 2. Otherwise, no change in appearance of the major vessels of the neck, as described above. ACT 112: Negative or not required by law. Electronically signed by: Arsalan Garcia M.D. 02/13/2023 1:33 PM Medications Administered Medication List Discontinued Medications Aspirin (Aspirin 300 Mg Supp) 300 mg GA ONE ONE Stop: 02/13/23 14:34 Last Admin: 02/13/23 15:10 Dose: 300 mg Documented By: ALONDRA Ioversol (Ioversol 350 Mg 125ml Prefilled Syringe) 120 ml IV ONCE ONE Stop: 02/13/23 12:26 Last Admin: 02/13/23 12:26 Dose: 120 ml Documented By: AIME ECG Rate (beats per minute): 63 Rhythm: atrial fibrillation COVID-19 Results Results COVID-19 Adm Lab Results: RBC 4.74 M/uL (4.70-6.10) 02/13/23 WBC 8.97 K/ul (4.8-10.8) 02/13/23 Hgb 12.7 g/dl (14.0-18.0) L 02/13/23 Hct 39.5 % (42.0-52.0) L 02/13/23 Plt Count 238 K/uL (130-400) 02/13/23 Neutrophils (%) (Auto) 74.3 % 02/13/23 Lymphocytes (%) (Auto) 13.7 % 02/13/23 Monocytes # (Auto) 0.53 K/uL (0.11-0.59) 02/13/23 Eosinophils # (Auto) 0.51 K/uL (0-0.50) H 02/13/23 Immature Granulocyte % (Auto) 0.2 % 02/13/23 Neutrophils # (Auto) 6.66 K/uL (1.40-6.50) H 02/13/23 Lymphocytes # (Auto) 1.23 K/uL (1.2-3.4) 02/13/23 Monocytes # (Auto) 0.53 K/uL (0.11-0.59) 02/13/23 Eosinophils # (Auto) 0.51 K/uL (0-0.50) H 02/13/23 Basophils # (Auto) 0.02 K/uL (0-0.2) 02/13/23 Immature Granulocyte # (Auto) 0.02 K/uL (0.01-0.20) 3 Na 139 mmol/L (136-145) 02/13/23 K 4.3 mmol/L (3.5-5.1) 02/13/23 Cl 108 mmol/L (98-107) H 02/13/23 CO2 28 mmol/L (21-32) 02/13/23 Anion Gap 3 (3-11) 02/13/23 BUN 19 mg/dl (6-23) 02/13/23 Creatinine 1.19 mg/dl (0.6-1.4) 02/13/23 BUN/Creatinine Ratio 16.0 (10-20) 02/13/23 Glucose Level 130 mg/dl (70-99(Fasting)) H 02/13/23 Ca 8.2 mg/dl (8.6-10.3) L 02/13/23 Total Bilirubin 0.5 mg/dl (0.2-1.0) 02/13/23 AST/SGOT 10 U/L (13-39) L 02/13/23 ALT/SGPT 6 U/L (7-52) L 02/13/23 Alkaline Phosphatase 87 U/L (34-104) 02/13/23 Total Protein 5.7 gm/dl (6.0-8.3) L 02/13/23 Albumin 3.3 gm/dl (3.4-5.0) L 02/13/23 Globulin 2.4 gm/dl (2.5-4.0) L 02/13/23 Albumin/Globulin Ratio 1.4 (0.9-2) 02/13/23 PTT 29.3 Seconds (21.0-31.0) 02/13/23 INR 1.1 (0.9-1.1) 02/13/23 SARS-CoV-2, RNA, NAAT NEGATIVE (NEGATIVE) 02/13/23 Chest X-Ray 02/13/23 Code Status & VTE Plan Code Status DNR Supervising Physician Co-Signing Physician Notes Pt seen and examined by myself, Esperanza Gastelum MD on the day of service. Care was coordinated with Angélica Beverly PA-C. Please refer to her note for additional information. 77yo gentleman with PMHx significant for a fib on Eliquis, Hx of prior stroke and vascular dementia presenting with L leg weakness, facial droop. and daughter at bedside. Pt with garbled speech, can move left lower extremity but cannot raise the leg. Able to follow commands. MRI brain showing new acute infarcts in left temporal lobe and right basal ganglia. Neuro consulted, appreciate recs. Started on Plavix, continue Eliquis. Otherwise as above. (2) Atrial fibrillation Atrial fibrillation type: unspecified Qualified Code(s): I48.91 - Unspecified atrial fibrillation
--- NOTE | 2023-02-13 14:14 | XRay Report ---
XR chest 1V portable CLINICAL HISTORY: neuro deficit, acute stroke suspected COMPARISON STUDY: Chest CT May 12, 2022. Chest radiograph November 15, 2022. FINDINGS: There is no pneumothorax or pleural effusion. Cardiomegaly is unchanged. There is no eviden ce for pulmonary edema. There is no consolidation to suggest pneumonia. IMPRESSION: No acute cardiopulmonary findings. Cardiomegaly. ACT 112: Negative or not required by law. Electronically signed by: Arsalan Garcia M.D. 02/13/2023 2:12 PM
[2023-02-13] MEDS ORDERED: ASPIRIN 300 MG SUPP PR ONE (14:33)
--- NOTE | 2023-02-13 15:25 | Magnetic Resonance Report ---
MRI OF THE BRAIN WITHOUT CONTRAST CLINICAL HISTORY: Cerebrovascular accident. Left facial droop. Left-sided weakness. COMPARISON STUDY: MRI of the brain July 14, [address] and CTA of the head performed valeriano vann today. TECHNIQUE: Utilizing a 1.5 Kath magnet and dedicated coil, multiplanar, multiecho imaging of the bra in was performed without IV contrast. FINDINGS: A few small foci of restricted diffusion within the right basal ganglia measure up to 1.2 c m. These are hypointense on the ADC map. There is also a 0.8 cm periventricular focus restricted diff usion within the posterior left temporal lobe on image 12 of 22. These represent small acute infarcts . There is no mass effect. There is no acute hemorrhage. Ventricular system is stable. Basal cisterns are patent. There are no extra axial collections. Extensive white matter T2 hyperintense foci are un changed and represent small vessel disease. A few additional old small infarcts are unchanged since p revious MRI. Calvarial signal is normal. IMPRESSION: 1. A few small acute infarcts measuring up to 1.2 cm. These are within the right basal ganglia and pe riventricular left temporal lobe. No mass effect. No acute hemorrhage. 2. Moderate atrophy with extensive small vessel disease and a few old infarcts. ACT 112: Negative or not required by law. Electronically signed by: Arsalan Garcia M.D. 02/13/2023 3:22 PM
[2023-02-13] MEDS ORDERED: SODIUM CHLORIDE 0.9% 1000ML 1,000 ML IV SCH (15:55)
[2023-02-13] MEDS ORDERED: STAT IV STA (15:55)
[2023-02-13] MEDS ORDERED: PHARMACIST DISCHARGE MED REC CONSULT PRN (15:55)
[2023-02-13] MEDS ORDERED: CALCIUM GLUCONATE 10% 1,000 MG in DEXTROSE 5% 50 ML IV ONE (15:55)
[2023-02-13] MEDS ORDERED: PNEUMOCOCCAL POLYSACCHARIDES 25 MCG/0.5 ML VIAL/SYR IM ONE (16:17)
[2023-02-14 07:27] LABS: Basophils # (auto) 0.02 K/uL (0-0.2); Basophils % (auto) 0.2 %; Eosinophils # (auto) 0.52 K/uL (0-0.50); Eosinophils % (auto) 4.9 %; Hematocrit (blood only) 41.1 % (42.0-52.0); Hemoglobin 13.3 g/dl (14.0-18.0); Immature Granulocytes # (auto) 0.04 K/uL (0.01-0.20); Immature Granulocytes % (auto) 0.4 %; Mean Corpuscular Hgb Conc 32.4 g/dL (32.0-36.0); Mean Corpuscular Volume 83.4 fL (80.0-100.0); Mean Platelet Volume 9.5 fL (9.4-12.4); Monocytes # (auto) 0.54 K/uL (0.11-0.59); Monocytes % (auto) 5.1 %; Neutrophils # (auto) 7.79 K/uL (1.40-6.50); Neutrophils % (auto) 73.4 %; Platelet Count 228 K/uL (130-400); RDW Coefficient of Variation 15.4 % (11.5-14.5); RDW Standard Deviation 46.4 fL (36.4-46.3); Red Blood Count 4.93 M/uL (4.70-6.10); White Blood Count 10.61 K/ul (4.8-10.8)
[2023-02-14 07:40] LABS: BUN Creatinine Ratio 16.8 (10-20); Calcium 8.7 mg/dl (8.6-10.3); Chol HDL Ratio 4.3 (0-5); Creatinine Clr Calc Pharmacy 69.7 ml/min; Est GFR (African American) 76.1 ml/min; Est GFR (Non-African American) 65.7 ml/min
[2023-02-14 07:55] LABS: Estimated Average Glucose 126 mg/dl
[2023-02-14] MEDS: hydrALAZINE HCL 20 MG/ML VIAL IV PRN ×3 (08:35→22:04)
--- NOTE | 2023-02-14 09:26 | Neurology Consultation ---
Date of Consultation February 14, 2023 Assessment & Plan (1) Acute ischemic stroke: Acute ischemic stroke in the setting of afib on eliquis. Strokes appear embolic and are bilateral, therefore not likely secondary to his carotid disease. I discussed with the family that eliquis is reasonable to continue when he is able to swallow. Given the significance of his facial weakness I am concerned about his dysphagia prognosis and discussed with them that they would not want to consider artificial nutrition. Otherwise, if he passes his swallow, would work toward placement as soon as possible to prevent hospital delirium which is a significant risk given his dementia. -- Therapy evals for prognosis, goals of care, specific concern for dysphagia -- If he persistently fails, will need palliative involvement -- Would order lubricating eye drops and patch for the L eye as he has some upper facial weakness as well. -- Resume eliquis when he regains ability to swallow -- Otherwise if able to swallow, plan for discharge to SNF/rehab as soon as possible to prevent hospital delirium. -- No further neurologic workup recommended, please contact us with any questions. Telehealth Consultation Telehealth Information Telehealth Information: I performed this visit using a real-time telehealth connection between my location and the patients location ([facility]). After connecting through interactive tele-video, patient was identified by name and date of and/or wristband check.Patient (or authorized healthcare automotive leasing sales representative) was informed that this was a telemedicine visit and it was being conducted confidentially over secure lines. My office door was closed and no one else was present in the room with me.Patient (or authorized healthcare automotive leasing sales representative) provided consent to proceed with the visit, expressed an understanding of privacy and security of the telemedicine visit, and gave permission to have a hospital automotive leasing sales representative in the room in order to assist with the visit and to conduct portions of the visit, as needed. I informed the patient (or authorized healthcare automotive leasing sales representative) that I reviewed their record and presented the opportunity for them to ask any questions regarding the visit today. The patient agreed to participate. History of Present Illness Reason for Consultation: Stroke Requesting Physician: Dr. Wren Attending Physician: Mar Wren MD History of Present Illness Elpidio Rogers is a 77 yo m with a history of prior stroke with resulting vascular dementia presenting with new left sided weakness that was noticed by family yesterday. They also noted that his activity level and ability to ambulate had been affected over the past week and question if this was potentially an ongoing process. Since the last stroke in 2021 he has needed significant help but was still able to feed himself and had no persistent dysphagia issues. They report he has been taking his eliquis regularly. The patient otherwise was unable to contribute to the history. Allergies Allergy/AdvReac Type Severity Reaction Status Date / Time No Known Allergies Verified 05/10/22 18:25 Home Medications Medication Instructions Recorded Confirmed Type aspirin 81 mg tablet,delayed 81 mg PO QAM #30 tabs 08/29/21 02/13/23 Rx release thiamine HCl (vitamin B1) 100 mg 100 mg PO QAM #30 tabs 08/29/21 02/13/23 Rx tablet apixaban 5 mg tablet (Eliquis) 5 mg PO AMPM 04/20/22 02/13/23 History atorvastatin 80 mg tablet 80 mg PO QAM 04/20/22 02/13/23 History lisinopril 20 mg tablet 20 mg PO HS 04/20/22 02/13/23 History Prevagen 1 tab PO DAILY 05/10/22 02/13/23 History spironolactone 25 mg tablet 25 mg PO QAM #30 tabs 05/20/22 02/13/23 Rx metoprolol succinate 50 mg 50 mg PO HS 07/14/22 02/13/23 History tablet,extended release 24 hr clonidine HCl 0.1 mg tablet 0.1 mg PO TID 02/13/23 02/13/23 History levothyroxine 50 mcg tablet 50 mcg PO MOWEFR@0630 02/13/23 02/13/23 History (Synthroid) levothyroxine 50 mcg tablet 75 mcg PO SuTuThSa@0630 02/13/23 02/13/23 History (Synthroid) metoprolol succinate 50 mg 100 mg PO DAILY 02/13/23 02/13/23 History tablet,extended release 24 hr sertraline 25 mg tablet 25 mg PO DAILY 02/13/23 02/13/23 History Patient History Medical History CAD (coronary artery disease) Cerebrovascular disease Elevated troponin Hypertension Hypertensive encephalopathy Surgical History Hx of CABG Family History Mother Stroke Social History Smoking Status: Never smoker Tobacco Type: Cigarettes Second Hand Exposure: No; Do You Dip or Chew Tobacco: No; Tobacco Cessation Education Requested by Patient: No Hx Alcohol Use: No Hx Substance Use: No Preferred Language: Kazakh Communication Ability: Impaired Communication Ability Comment: speak loud Passport Application Examiner Required: No Beliefs That Will Affect Care: None marital status: Current Living Situation: Spouse Current Living Situation Comment: spouse is having difficulty with his care/ failure to thrive current occupational status: retired Other Information That Helps Us Care for You: No Feels Safe at Home: Yes Safety Concerns: Feels Safe At This Time Assistive Devices: Walker Review of Systems Unable to obtain Physical Exam Neurological Examination: Mental Status: Awake and alert. Paucity of speech/expressive aphasia. Comprehension intact, able to follow simple commands. Cranial Nerves: II: pupils 3/3 to 2/2 VII: Facial expression reduced in the L side, upper and lower VIII: Hearing intact to voice XII: Unable to protrude tongue Motor: Strength was reduced on the left side compared to the right though antigravity movement noted in both. Sensory: Sensation to light touch was intact. Reflexes: Unable to assess over telemedicine Results & Data Vital Signs (Past 12 Hours) Vital Signs Temp Pulse Pulse Resp BP Pulse Ox O2 Del Method 02/14/23 07:45 213/127 H 02/14/23 07:23 36.8 C 70 18 198/106 H 91 Room Air 02/14/23 02:40 36.8 C 73 18 168/106 H 92 Room Air 02/13/23 23:12 36.6 C 62 18 158/93 H 93 Room Air 02/13/23 23:09 78 Laboratory Results Abnormal lab results 02/13/23 02/13/23 02/13/23 Range/Units 12:40 12:40 12:40 Hgb 12.7 L (14.0-18.0) g/dl POC Hgb (14.0-18.0) g/dl Hct 39.5 L (42.0-52.0) % POC Hct (42-52) % RDW Std Deviation 46.6 H (36.4-46.3) fL RDW Coeff of Satya 15.4 H (11.5-14.5) % Neut # (Auto) 6.66 H (1.40-6.50) K/uL Eos # (Auto) 0.51 H (0-0.50) K/uL PT 12.4 H (9.0-12.0) Seconds Chloride 108 H (98-107) mmol/L POC BUN (7-18) mg/dl Glucose 130 H (70-99(Fasting)) mg/dl POC Glucose (other) (70-99) mg/dl Hemoglobin A1c (4.5-5.6) % Calcium 8.2 L (8.6-10.3) mg/dl POC Ioniz Calcium Patsy (1.12-1.32) mmol/l AST 10 L (13-39) U/L ALT 6 L (7-52) U/L Total Protein 5.7 L (6.0-8.3) gm/dl Albumin 3.3 L (3.4-5.0) gm/dl Globulin 2.4 L (2.5-4.0) gm/dl 02/13/23 02/14/23 02/14/23 Range/Units 12:40 07:04 07:04 Hgb 13.3 L (14.0-18.0) g/dl POC Hgb 12.9 L (14.0-18.0) g/dl Hct 41.1 L (42.0-52.0) % POC Hct 38 L (42-52) % RDW Std Deviation 46.4 H (36.4-46.3) fL RDW Coeff of Satya 15.4 H (11.5-14.5) % Neut # (Auto) 7.79 H (1.40-6.50) K/uL Eos # (Auto) 0.52 H (0-0.50) K/uL PT (9.0-12.0) Seconds Chloride (98-107) mmol/L POC BUN 20 H (7-18) mg/dl Glucose (70-99(Fasting)) mg/dl POC Glucose (other) 131 H (70-99) mg/dl Hemoglobin A1c 6.0 H (4.5-5.6) % Calcium (8.6-10.3) mg/dl POC Ioniz Calcium Patsy 1.09 L (1.12-1.32) mmol/l AST (13-39) U/L ALT (7-52) U/L Total Protein (6.0-8.3) gm/dl Albumin (3.4-5.0) gm/dl Globulin (2.5-4.0) gm/dl Diagnostic Findings MRI brain - scattered infarcts in the bilateral deep white matter.
--- NOTE | 2023-02-14 10:57 | Pharmacy Report ---
- Date of Service February 14, 2023 - Pharmacy CVA/TIA Medication Review Medications to Prevent Stroke handout has been added to the patients discharge packet. Antiplatelet(s) * Aspirin 81mg daily received at home. Held currently due to dysphagia. Cholesterol * High intensity statin: atorvastatin 80 mg daily received at home. Held currently due to dysphagia. DVT Prophylaxis * Enoxaparin SQ + SCD knee Therapeutic Anticoagulation * Hx Afib/Aflutter noted, and patient is received Eliquis 5mg BID at home. Held currently due to dysphagia. Per Neurology note, plan to resume when able to swallow. Type 2 Diabetes * Patient does not have T2D
--- NOTE | 2023-02-14 11:13 | Electrocardiogram Report ---
Test Reason : Blood Pressure : / mmHG Vent. Rate : 063 BPM Atrial Rate : 000 BPM P-R Int : 000 ms QRS Dur : 082 ms QT Int : 444 ms P-R-T Axes : 000 -20 179 degrees QTc Int : 454 ms Atrial fibrillation Chronic T-wave inversion in Lateral leads New T-wave inversion in Anterior leads , consider ischemia Abnormal ECG When compared with ECG of 14-JUL-2022 15:02, T wave inversion now evident in Anterior leads Confirmed by Esau Garduno ([id number]) on 02/14/2023 11:12:27 AM Referred By: REFERRED SELF Confirmed By:Esau Garduno
[2023-02-14] MEDS: ENOXAPARIN INJ 40 MG/0.4 ML SYR SQ SCH (14:00)
--- NOTE | 2023-02-14 15:10 | Hospitalist Progress Note ---
Date of Service February 14, 2023 Assessment & Plan (1) Acute ischemic stroke: (2) Atrial fibrillation: (3) CAD (coronary artery disease): (4) Cerebrovascular disease: (5) CHF (congestive heart failure): Plan 77 year-old male who has a significant past medical history of atrial fi brillation anticoagulated on Eliquis, chronic HFpEF, HTN, HLD, history of CVA, CAD with hx of CABG, CKD stage III, BPH who presents to ED secondary to strokelike symptoms. He is being managed for the following: Acute ischemic stroke within the right basal ganglia and periventricular left temporal lobe with left-sided facial droop, dysarthria and worsened left-sided weakness hx of acute ischemic CVA aug 2021 Vascular dementia Chronic aspiration, worsened with this stroke c/w telemetry Neuro evaled: (switch aspirin to ) plavix and eliquis when able to take PO. Lubricating eye drops x left eye. Speech evaled, h/o significant dysphagia, appears worse now. Family don't want tube feeding including peg/NG/corsef; agrees to permissive aspiration which they have been accepting from the past. Family would like to have goals of care discussion; palliative has been consulted. d/w speech, hold on to diet recs until pall sees him and plan is finalized. Currently NPO. A1c 6.0; LDL 75. Continue high intensity statin when able. PT/OT, f/u echo Palliative consult, await recs. Atrial fibrillation, chronic: Patient on Eliquis and metoprolol. c/w as needed Lopressor while n.p.o. Carotid Artery Stenosis: will need establishment with vascular as OP if not done so already. prox L ICA 50% stenosis. on ASA/Statin at home; likely will be plavix/statin/eliquis when able. Chronic HFpEF CAD with hx of CABG x 4 in 2009 in [facility] Daily weight, strict I's and O's On metoprolol and Aldactone as outpatient Hypertension: Patient on clonidine, lisinopril, metoprolol and Aldactone. Per patient recently started on clonidine by [facility]. Resume PO meds when able, will use iv prn meds until then, possibly schedule iv meds from [facility]iel[facility] if not taking PO yet. Hypocalcemia: ionized ca low at admission, given 1g calc gluconate. follow Hypothyroidism: c/w Levothyroxine DVT prophylaxis: Patient on Eliquis, resume when able, currently on lovenox dvt px. pt/ot/pall care consult, cm to assist w/ dc plan. Admission and Anticipated Discharge Date Admission Date: February 13, 2023 Subjective Patient seen and examined at bedside as a follow-up of acute ischemic stroke and worsening swallowing problem in the background of vascular dementia and chronic aspiration. Patient was sitting up in bed, on room air, NAD, very hard of hearing, does not appear to be in distress, ROS not able due to him not understanding/being able to hear me at all. Physical Exam Physical Exam: GENERAL: Alert and awake. NAD, on RA. Very [place]. HEENT: No pallor, no icterus. Pupils equal, round and reactive to light. Oral mucosa moist. L face droop. NECK: No JVD, no neck masses. HEART: S1 and S2 heard. irregular rate and rhythm. No murmur, no gallop. RESPIRATORY SYSTEM: Normal AP diameter. No accessory muscle use. No wheezing, no crackles. ABDOMEN: Soft, bowel sounds present, nontender, no distention. CENTRAL NERVOUS SYSTEM: No facial droop. Speech is clear. Obeys simple commands. Moves extremities Lt weaker than right. EXTREMITIES: No edema, no erythema seen. Results & Data Results & Data Vital Signs (Past 12 Hours) Vital Signs Temp Pulse Resp BP Pulse Ox O2 Del Method 02/14/23 10:46 36.9 C 80 18 162/102 H 91 Room Air 02/14/23 07:45 213/127 H 02/14/23 07:23 36.8 C 70 18 198/106 H 91 Room Air (2) Atrial fibrillation Atrial fibrillation type: unspecified Qualified Code(s): I48.91 - Unspecified atrial fibrillation
--- NOTE | 2023-02-14 16:38 | Palliative Care Consultation ---
Date of Consultation February 14, 2023 Assessment & Plan (1) Dyspnea and respiratory abnormalities: worsened by strokes, RICK/untreated-pt refused (2) Sleep apnea: see above #1 (3) Weakness generalized: (4) Left hemiplegia: (5) Palliative care by specialist: Met with family. Provided overview of Palliative Medicine, a subspecialty that provides specialized medical care for people living with a serious illness by offering a focus on quality of life. Palliative Medicine is often conflated with hospice: I advised patient/family that Palliative and hospice can be partners but we are not the same. It is important to understand the difference so that we may be informed, and not afraid. Palliative Medicine works to improve QOL through reduction of symptom burden/more control over their illness, for both the patient and family. Palliative medicine clinicians are board certified, specially-trained and another member of the patient's medical care team. We often provide an extra layer of support because our care is based on the needs of the patient, not the prognosis; as such, it's appropriate at any age/advancing stage of a serious illness and can be provided along with curative treatment. Palliative Medicine clinicians are also trained in advanced com munication methodologies, to facilitate complex discussions about advanced illness planning, which are needed to help assure that the treatment choices match the patient's goals, aka delivering Goal Concordant care. Finally, we discussed that hospice is a visiting nurse service that focuses on care delivered at the very end of life for patients with terminal illness, with life expectancy less than 6 month. (6) Discussion about advance care planning held with family member: face to face with family x 45min and dtr do not want feeding tube but states [facility] rep was recently there and promised them a private room, now they are willing to consider it. states he has about 50% service connected disability, and at 70% his VA care/SNF etc would be covered 100% otherwise it is prorated She has been looking into the [facility] in [place] and also was advised by his [facility] Nurse to consider [facility] in [place] as interim step while waiting for bed approval in [place] location. She is hoping rehab can bring his strength back to where he can use his walker. currently all ADL except eating (she cooks/cuts up food etc) require her assistance. he is beginning to fall more and she cannot care for his physical needs given his large stature. Last time he feel she had to call dtr and son in law and the three of them still could not lift him off the ground. We spoke about stroke prognosis and how the first few days post stroke help determine the trend of improving vs worsening etc. I advised I believe her expected goal of rehab may not be reachable. His dementia will limit his ability to meaningfully participate in rehab. (7) Encounter for hospice care discussion: We discussed the goals of hospice as a patient service and the goals of care; we discussed EOL trajectories and transitions naomi the emotional impact of realizing mortality as a concrete reality from prior abstract considerations. Pt was reassured that no matter where they are along this trajectory, they are not alone - their medical team will remain by their side through their journey. Discussed the pros/cons of accepting help when especially weakened and distressed by pain-which would also help provide relief/decrease caregiver burden/strain. they are interested in [place] hospice services when able (8) Acute ischemic stroke: Plan * Family undecided on [facility] vs [facility] - will see how he does next 1-2 days, follow up with them on . * has started looking into VA placement options. She would like CM help for [facility] hospital in [place] if possible or [facility] if they can accept him from here * family is clear they can no longer meet his physical needs at home. * TS 75min Thank you for allowing us to participate in the ongoing care of this patient. Please don't hesitate to call or page with any additional concerns. Dr. Jeannette Galindo DNP Director, Palliative Care History of Present Illness Reason for Consultation: [facility] Attending Physician: Mar Wren MD History of Present Illness Elpidio Rogers is a 77 year-old male who has a significant past medical history of atrial fibrillation anticoagulated on Eliquis, chronic HFpEF, HTN, HLD, history of CVA, CAD with hx of CABG, CKD stage III, BPH who presents to ED secondary to strokelike symptoms. He was found to have an acute ischemic stroke within the right basal ganglia and periventricular left temporal lobe with left- sided facial droop, dysarthria and worsened left-sided weakness He has a prior hx of acute ischemic CVA aug 2021. and dtr at bedside state he had multiple prior strokes before and after the 2021 event, of lesser degrees. he also has worsening Vascular dementia with behv disturbance. and dtr state he largely does not recall them and becomes agitated when out of his element. At time of my visit, he is deeply asleep with sonorous respirations. Even with brief awakening he has garbled speech and cannot provide HPI. +worsening aspiration family do not want feeding tube Allergies Allergy/AdvReac Type Severity Reaction Status Date / Time No Known Allergies Verified 05/10/22 18:25 Home Medications Medication Instructions Recorded Confirmed Type aspirin 81 mg tablet,delayed 81 mg PO QAM #30 tabs 08/29/21 02/13/23 Rx release thiamine HCl (vitamin B1) 100 mg 100 mg PO QAM #30 tabs 08/29/21 02/13/23 Rx tablet apixaban 5 mg tablet (Eliquis) 5 mg PO AMPM 04/20/22 02/13/23 History atorvastatin 80 mg tablet 80 mg PO QAM 04/20/22 02/13/23 History lisinopril 20 mg tablet 20 mg PO HS 04/20/22 02/13/23 History Prevagen 1 tab PO DAILY 05/10/22 02/13/23 History spironolactone 25 mg tablet 25 mg PO QAM #30 tabs 05/20/22 02/13/23 Rx metoprolol succinate 50 mg 50 mg PO HS 07/14/22 02/13/23 History tablet,extended release 24 hr clonidine HCl 0.1 mg tablet 0.1 mg PO TID 02/13/23 02/13/23 History levothyroxine 50 mcg tablet 50 mcg PO MOWEFR@0630 02/13/23 02/13/23 History (Synthroid) levothyroxine 50 mcg tablet 75 mcg PO SuTuThSa@0630 02/13/23 02/13/23 History (Synthroid) metoprolol succinate 50 mg 100 mg PO DAILY 02/13/23 02/13/23 History tablet,extended release 24 hr sertraline 25 mg tablet 25 mg PO DAILY 02/13/23 02/13/23 History Patient History Medical History (Updated 02/14/23 @ 16:28 by Jeannette Galindo DNP) CAD (coronary artery disease) Cerebrovascular disease Discussion about advance care planning held with family member Dyspnea and respiratory abnormalities Elevated troponin Encounter for hospice care discussion Hypertension Hypertensive encephalopathy Left hemiplegia Palliative care by specialist Sleep apnea Weakness generalized Surgical History Hx of CABG Family History Mother Stroke Social History Smoking Status: Never smoker Tobacco Type: Cigarettes Second Hand Exposure: No; Do You Dip or Chew Tobacco: No; Tobacco Cessation Education Requested by Patient: No Hx Alcohol Use: No Hx Substance Use: No Preferred Language: Nepali Communication Ability: Effective Communication Ability Comment: speak loud Inspector Casing Required: No Beliefs That Will Affect Care: None marital status: Current Living Situation: Spouse Current Living Situation Comment: spouse is having difficulty with his care/ failure to thrive current occupational status: retired Other Information That Helps Us Care for You: No Feels Safe at Home: Yes Safety Concerns: Feels Safe At This Time Assistive Devices: Cane and Walker Review of Systems Review of Systems: Unobtainable due to cognitive status Physical Exam Physical Exam: sonorous respirations with apneic breathing noted thick short neck left hemiplegia and facial droop unable to follow commands intermittent bronchitic cough irreg irreg CV obese belly, +pannus BLE edema +1 skin pale/warm, +diaphoretic Results & Data Vital Signs (Past 12 Hours) Vital Signs Temp Pulse Resp BP Pulse Ox Pulse Ox O2 Del Method 02/14/23 15:55 92 02/14/23 10:46 36.9 C 80 18 162/102 H 91 Room Air 02/14/23 07:45 213/127 H 02/14/23 07:23 36.8 C 70 18 198/106 H 91 Room Air O2 Del Method 02/14/23 15:55 Room Air 02/14/23 10:46 02/14/23 07:45 02/14/23 07:23 Laboratory Results data reviewed Diagnostic Findings data reviewed CT head non contrast: FINDINGS: No acute intracranial hemorrhage, midline shift or mass effect is present. The ventricular system is stable. White matter hypodensities are unchanged and favor small vessel disease. An old small stroke within the right centrum semiovale is unchanged. The basal cisterns are patent. No extra-axial collections are present. There are no findings to suggest acute dural sinus thrombosis or acute territorial infarct. No significant calvarial abnormalities are present. Visualized portions of the sinuses and mastoid air cells are clear. IMPRESSION: No acute intracranial findings. No change in appearance of the brain. CT angio: FINDINGS: No intracranial aneurysm is identified. No large vessel occlusion is noted. Severe multifocal stenoses within the intracranial vessels are similar to CT of July 14, 2022 and include severe stenoses within the proximal left A1 segment, the right A2 segment, the basilar artery and the right posterior cerebral artery. There is persistence of the bilateral posterior cerebral arteries. The right vertebral artery is diminutive. Diminished flow within the distal right vertebral artery which ends in PICA unchanged. The appearance of the intracranial circulation is unchanged. IMPRESSION: 1. No change since CTA of July 14, 2022. Severe multifocal stenoses, as detailed above. 2. No large vessel occlusion. 3. No intracranial aneurysm. PG Care Time/CCT Total # of Minutes Spent Total Time Spent: 95 Total Time Spent with Patient: Total time spent is greater than 50% in coordination of care (as documented) at patient's floor/unit and/or counseling patient: I spent 95 minutes overall addressing this case: 15 in medical data review/discussion with referring provider(s) and/or preparation for the visit 10 in direct interaction with the patient 45 Advance Care Planning/Goals of Care discussions as detailed above in note (must be >16min) 10 in subsequent review and synthesis of assessment and plan 15 in communicating with other providers regarding the patient's case: primary team and nursing Advanced Care Planning 70670 Advanced Care Planning 30 Min 17317 Advanced Care Planning Additional 30 [place] [address] IN/OBS CONSULT LVL 5,80M Patient Type New History Comprehensive Exam Comprehensive Medical Decision Making High Complexity Diagnoses Dyspnea and respiratory abnormalities R06.00; R06.89 Sleep apnea G47.30 Weakness generalized R53.1 Left hemiplegia G81.94 Palliative care by specialist Z51.5 Discussion about advance care planning held with family member Z71.0 Encounter for hospice care discussion Z71.89 Acute ischemic stroke I63.9 Additional Codes Advanced Care Planning - 26152 Advanced Care Planning 30 Min: 72487 Advanced Care Planning 30 Min ([id number]) Advanced Care Planning - 33973 Advanced Care Planning Additional 30 Min: 43760 Advanced Care Planning Additional 30 Min ([id number])
[2023-02-14] MEDS: LABETALOL HCL IV 5 MG/ML 20ML IV PRN (20:11)
[2023-02-15] MEDS: hydrALAZINE HCL 20 MG/ML VIAL IV PRN ×2 (02:42→21:48)
[2023-02-15 07:08] LABS: Basophils # (auto) 0.03 K/uL (0-0.2); Basophils % (auto) 0.3 %; Eosinophils # (auto) 0.14 K/uL (0-0.50); Eosinophils % (auto) 1.2 %; Hematocrit (blood only) 43.1 % (42.0-52.0); Hemoglobin 13.9 g/dl (14.0-18.0); Immature Granulocytes # (auto) 0.06 K/uL (0.01-0.20); Immature Granulocytes % (auto) 0.5 %; Lymphocytes # (auto) 0.92 K/uL (1.2-3.4); Lymphocytes % (auto) 7.9 %; Mean Corpuscular Hemoglobin 26.8 pg (25.0-34.0); Mean Corpuscular Hgb Conc 32.3 g/dL (32.0-36.0); Mean Corpuscular Volume 83.2 fL (80.0-100.0); Mean Platelet Volume 9.6 fL (9.4-12.4); Monocytes # (auto) 0.56 K/uL (0.11-0.59); Monocytes % (auto) 4.8 %; Neutrophils # (auto) 9.95 K/uL (1.40-6.50); Neutrophils % (auto) 85.3 %; Platelet Count 249 K/uL (130-400); RDW Coefficient of Variation 15.5 % (11.5-14.5); RDW Standard Deviation 46.5 fL (36.4-46.3); Red Blood Count 5.18 M/uL (4.70-6.10); White Blood Count 11.66 K/ul (4.8-10.8)
[2023-02-15 07:38] LABS: BUN Creatinine Ratio 18.4 (10-20); Calcium 9.1 mg/dl (8.6-10.3); Creatinine Clr Calc Pharmacy 76.1 ml/min; Est GFR (African American) 84.6 ml/min; Phosphorus 3.3 mg/dl (2.5-4.9); Potassium 3.8 mmol/L (3.5-5.1)
[2023-02-15] MEDS: ENOXAPARIN INJ 40 MG/0.4 ML SYR SQ SCH (08:08)
[2023-02-15] MEDS ORDERED: METOPROLOL TARTRATE 1 MG/ML VIAL IV STA (13:18)
--- NOTE | 2023-02-15 17:55 | Hospitalist Progress Note ---
Date of Service February 15, 2023 Assessment & Plan (1) Acute ischemic stroke: (2) Atrial fibrillation: (3) CAD (coronary artery disease): (4) Cerebrovascular disease: (5) CHF (congestive heart failure): Plan 77 year-old male who has a significant past medical history of atrial fi brillation anticoagulated on Eliquis, chronic HFpEF, HTN, HLD, history of CVA, CAD with hx of CABG, CKD stage III, BPH who presents to ED secondary to strokelike symptoms. He is being managed for the following: Acute ischemic stroke within the right basal ganglia and periventricular left temporal lobe with left-sided facial droop, dysarthria and worsened left-sided weakness hx of acute ischemic CVA aug 2021 Vascular dementia Chronic aspiration, worsened with this stroke c/w telemetry. Echo 02/14 reviewed. EF 55%. Neuro evaled: (switch aspirin to ) plavix and eliquis when able to take PO. Lubricating eye drops x left eye. Speech evaled, h/o significant dysphagia, appears worse now. Family don't want tube feeding including peg/NG/corsef or artificial feeding; agrees to permissive aspiration which they have been accepting from the past, they are aware that he now has increased risk of aspiration/chance of infection. Palliative evaluated, family would like to continue with palliative care upon discharge with possible plan to transition to hospice if his condition deteriorates. d/w speech, pured diet/mildly thick liquids Resuming home p.o. meds today. A1c 6.0; LDL 75. Continue high intensity statin PT/OT, f/u echo Atrial fibrillation, chronic: Patient on Eliquis and metoprolol. Resumed. Carotid Artery Stenosis: will need establishment with vascular as OP if not done so already. prox L ICA 50% stenosis. on ASA/Statin at home; continue with plavix/statin/eliquis. Chronic HFpEF CAD with hx of CABG x 4 in 2009 in [facility] Daily weight, strict I's and O's On metoprolol and Aldactone as outpatient Hypertension: Patient on clonidine, lisinopril, metoprolol and Aldactone. Per patient recently started on clonidine by [facility] December. Resume PO meds. Hypocalcemia: ionized ca low at admission, given 1g calc gluconate. follow Hypothyroidism: c/w Levothyroxine DVT prophylaxis: Patient on Eliquis. PT/OT, CM to assist. Palliative follow-up on discharge. Admission and Anticipated Discharge Date Admission Date: February 13, 2023 Subjective Patient seen and examined at bedside as a follow-up of acute ischemic stroke and worsening swallowing problem in the background of vascular dementia and chronic aspiration. Patient was sitting up in bed, on room air, NAD, very hard of hearing, does not appear to be in distress, ROS not able due to him not understanding/being able to hear me at all. Discussed with family, they accept the increased risks of aspiration with him and would like to proceed with p.o. intake. Also they stated they will maintain follow-up with palliative care once discharged with possible plan to transitioning to hospice if his condition worsens. Discussed with speech, they recommend pured diet with mildly thick liquids. Will resume his po meds. Physical Exam Physical Exam: GENERAL: Alert and awake. NAD, on RA. Very [place]. HEENT: No pallor, no icterus. Pupils equal, round and reactive to light. Oral mucosa moist. L face droop. NECK: No JVD, no neck masses. HEART: S1 and S2 heard. irregular rate and rhythm. No murmur, no gallop. RESPIRATORY SYSTEM: Normal AP diameter. No accessory muscle use. No wheezing, no crackles. ABDOMEN: Soft, bowel sounds present, nontender, no distention. CENTRAL NERVOUS SYSTEM: No facial droop. Speech is clear. Obeys simple commands. Moves extremities Lt weaker than right. EXTREMITIES: No edema, no erythema seen. Results & Data Results & Data Vital Signs (Past 12 Hours) Vital Signs Temp Pulse Pulse Resp BP BP Pulse Ox 02/15/23 16:32 36.8 C 115 H 18 168/85 H 99 02/15/23 13:55 79 170/110 H 02/15/23 13:34 147 H 178/150 H 02/15/23 11:00 36.8 C 115 H 20 144/89 H 98 02/15/23 08:00 02/15/23 07:48 36.8 C 125 H 20 149/92 H 95 O2 Del Method 02/15/23 16:32 Room Air 02/15/23 13:55 02/15/23 13:34 02/15/23 11:00 Room Air 02/15/23 08:00 Room Air 02/15/23 07:48 Room Air (2) Atrial fibrillation Atrial fibrillation type: unspecified Qualified Code(s): I48.91 - Unspecified atrial fibrillation
[2023-02-15] MEDS ORDERED: METOPROLOL TARTRATE 1 MG/ML VIAL IV PRN (17:56)
[2023-02-15] MEDS ORDERED: METOPROLOL TARTRATE 1 MG/ML VIAL IV SCH (18:00)
[2023-02-15] MEDS: cloNIDine HCL 0.1 MG TAB PO SCH (20:14)
[2023-02-15] MEDS: lisinopril 20 MG TAB PO SCH (20:14)
[2023-02-15] MEDS: APIXABAN 5 MG TABLET PO SCH (20:14)
[2023-02-15] MEDS: METOPROLOL SUCC 50MG EXT REL TAB PO SCH (20:23)
[2023-02-16] MEDS: LEVOTHYROXINE SODIUM 50 MCG TABLET PO SCH (06:12)
[2023-02-16 07:00] LABS: Basophils # (auto) 0.04 K/uL (0-0.2); Basophils % (auto) 0.4 %; Eosinophils # (auto) 0.38 K/uL (0-0.50); Eosinophils % (auto) 3.7 %; Hematocrit (blood only) 42.4 % (42.0-52.0); Hemoglobin 13.8 g/dl (14.0-18.0); Immature Granulocytes # (auto) 0.04 K/uL (0.01-0.20); Immature Granulocytes % (auto) 0.4 %; Lymphocytes % (auto) 11.5 %; Mean Corpuscular Hemoglobin 26.8 pg (25.0-34.0); Mean Corpuscular Hgb Conc 32.5 g/dL (32.0-36.0); Mean Corpuscular Volume 82.5 fL (80.0-100.0); Mean Platelet Volume 9.9 fL (9.4-12.4); Monocytes # (auto) 0.65 K/uL (0.11-0.59); Monocytes % (auto) 6.3 %; Neutrophils # (auto) 8.08 K/uL (1.40-6.50); Neutrophils % (auto) 77.7 %; Platelet Count 234 K/uL (130-400); RDW Coefficient of Variation 15.5 % (11.5-14.5); RDW Standard Deviation 46.2 fL (36.4-46.3); Red Blood Count 5.14 M/uL (4.70-6.10); White Blood Count 10.39 K/ul (4.8-10.8)
[2023-02-16 07:29] LABS: BUN Creatinine Ratio 18.3 (10-20); Creatinine Clr Calc Pharmacy 80.2 ml/min; Est GFR (African American) 90.2 ml/min; Est GFR (Non-African American) 77.8 ml/min; Potassium 3.7 mmol/L (3.5-5.1)
[2023-02-16] MEDS: hydrALAZINE HCL 20 MG/ML VIAL IV PRN (07:40)
[2023-02-16] MEDS: LABETALOL HCL IV 5 MG/ML 20ML IV PRN (09:27)
[2023-02-16] MEDS: D5W AND 1/2NSS 1,000 ML IV SCH ×2 (09:45→22:55)
[2023-02-16] MEDS: cloNIDine HCL 0.1 MG TAB PO SCH ×4 (09:52→21:56)
[2023-02-16] MEDS: THIAMINE HCL 100 MG TAB PO SCH (09:52)
[2023-02-16] MEDS: SPIRONOLACTONE 25 MG TAB PO SCH ×2 (09:52→10:28)
[2023-02-16] MEDS: METOPROLOL SUCC 50MG EXT REL TAB PO SCH ×3 (09:52→21:59)
[2023-02-16] MEDS: ATORVASTATIN 40 MG TAB PO SCH ×2 (09:52→10:27)
[2023-02-16] MEDS: CLOPIDOGREL BISULFATE 75 MG TAB PO SCH ×2 (09:52→10:09)
[2023-02-16] MEDS: APIXABAN 5 MG TABLET PO SCH ×3 (09:52→21:56)
[2023-02-16] MEDS: SERTRALINE HCL 50 MG TABLET PO SCH ×2 (09:52→10:28)
--- NOTE | 2023-02-16 13:16 | Palliative Family Discussion ---
Date of Service February 16, 2023 Patient Directed Conference Time of [id number] Participants: Jeannette Galindo DNP Patient participation: no/lacks capacity Patient Support System: Other Healthcare Provider Participation: None Meeting Location: telephonic The patient's surrogate medical decision maker participated: yes , Charline A family meeting was held for WALLACE ALCANTAR. This meeting was necessary for determining the appropriate course of treatment. Topics of Discussion Topics of Discussion: 1. Acute ischemic stroke within the right basal ganglia and periventricular left temporal lobe with left-sided facial droop, dysarthria and worsened left-sided weakness along with prior hx of acute ischemic CVA aug 2021 2. PMH: Vascular dementia with behav disturbance/worsening; atrial fibrillation anticoagulated on Eliquis, chronic HFpEF, HTN, HLD, history of CVA, CAD with hx of CABG, CKD stage III, BPH 3. Worsening aspiration, delcining PS Other Content of Meetin. Opportunity given for participants to speak and ask questions. 2. Participants were assured of attention to patient comfort. 3. Reassurance provided. 4. Support was provided for informed, good-elgin decisions. 5. Emotions expressed by family were acknowledged and addressed. 6. Mrs. Alcantar and I spoke with . she and dtr would like to meet tomorrow afternoon (I am in clinic till 2pm) because dtr cannot be here today (is at her mother in law's today.) Charline is interested in hospice: We discussed the goals of hospice as a patient service and the goals of care; we discussed EOL trajectories and transitions naomi the emotional impact of realizing mortality as a concrete reality from prior abstract considerations. Pt was reassured that no matter where they are along this trajectory, they are not alone - their medical team will remain by their side through their journey. Discussed the pros/cons of accepting help when especially weakened and distressed by pain- which would also help provide relief/decrease caregiver burden/strain.I provided education about the hospice benefit: an interdisciplinary program offered by nurses, nurses aides, social workers, chaplains and a medical office representative for patie nts with a terminal condition and a life expectancy of less than 6 months. This is covered by Medicare at 100%/no out of pocket expense to patient and all meds/supplies needed by patient for the reason they are on hospice are paid for/covered by hospice. The goal is assure quality of life of the patient in their home setting (home, senior living, inpatient hospice setting) by providing symptoms management, psychosocial and spiritual support. However, they cannot offer 24 hours care and if the family is unable to provide that care, they will have to consider personal care with out of pocket cost vs. senior living placement. We discussed the goals of hospice as a patient service and the goals of care; we discussed EOL trajectories and transitions naomi the emotional impact of realizing mortality as a concrete reality from prior abstract considerations. Pt was reassured that no matter where they are along this trajectory, they are not alone - their medical team will remain by their side through their journey. Discussed the pros/cons of accepting help when especially weakened and distressed by pain-which would also help provide relief/decrease caregiver burden/strain. states she would like if he can walk around using his walker and assist with his mobility and I advised her I am unsure this is something he can regain to that capcaity however we can get a formal PT eval, tomorrow if possible. If PT feels pt has some rehab potential, then it may be reasonable to let pt try [facility] then go home with hospice. if they feel he has no rehab potential then home with hospice is good so long as additional family can help. 7. Plan of Care: as noted above. Time Involved in Meeting: I spent 50 minutes overall addressing this case: 5 in medical data review/discussion with referring provider(s) and/or preparation for the visit 5 in direct interaction with the patient 30 Advance Care Planning/Goals of Care discussions as detailed above in note (must be >16min) 5 in subsequent review and synthesis of assessment and plan 5 in communicating with other providers regarding the patient's case: primary team
--- NOTE | 2023-02-16 16:41 | Hospitalist Progress Note ---
Date of Service February 16, 2023 Assessment & Plan (1) Acute ischemic stroke: (2) Atrial fibrillation: (3) CAD (coronary artery disease): (4) Cerebrovascular disease: (5) CHF (congestive heart failure): Plan 77 year-old male who has a significant past medical history of atrial fi brillation anticoagulated on Eliquis, chronic HFpEF, HTN, HLD, history of CVA, CAD with hx of CABG, CKD stage III, BPH who presents to ED secondary to strokelike symptoms. He is being managed for the following: Acute ischemic stroke within the right basal ganglia and periventricular left temporal lobe with left-sided facial droop, dysarthria and worsened left-sided weakness hx of acute ischemic CVA aug 2021 Vascular dementia Chronic aspiration, worsened with this stroke c/w telemetry. Echo 02/14 reviewed. EF 55%. Neuro evaled: (switch aspirin to ) plavix and eliquis when able to take PO. Lubricating eye drops x left eye. Speech evaled, h/o significant dysphagia, appears worse now. Family don't want tube feeding including peg/NG/corsef or artificial feeding; agrees to permissive aspiration which they have been accepting from the past, they are aware that he now has increased risk of aspiration/chance of infection. Palliative evaluated, family would like to continue with palliative care upon discharge with possible plan to transition to hospice if his condition deteriorates. Speech evaluated, pured diet/mildly thick liquids Continue with home meds. IV fluid when not taking adequate p.o. Per RN, patient refusing most of the diet. Per OT, patient not able to follow instruction 50% of the time for needed therapy. A1c 6.0; LDL 75. Continue high intensity statin PT/OT, f/u echo Atrial fibrillation, chronic: Patient on Eliquis and metoprolol. Resumed. Carotid Artery Stenosis: will need establishment with vascular as OP if not done so already. prox L ICA 50% stenosis. on ASA/Statin at home; continue with plavix/statin/eliquis. Chronic HFpEF CAD with hx of CABG x 4 in 2009 in [facility] Daily weight, strict I's and O's On metoprolol and Aldactone as outpatient Hypertension: Patient on clonidine, lisinopril, metoprolol and Aldactone. Per patient recently started on [facility] December. Resume PO meds. Hypocalcemia: ionized ca low at admission, given 1g calc gluconate. follow Hypothyroidism: c/w Levothyroxine DVT prophylaxis: Patient on Eliquis. PT/OT, CM to assist. Palliative follow-up on discharge. Awaiting placement. Admission and Anticipated Discharge Date Admission Date: February 13, 2023 Subjective Patient seen and examined at bedside as a follow-up of acute ischemic stroke and worsening swallowing problem in the background of vascular dementia and chronic aspiration. Patient was sitting up in bed, on room air, NAD, very hard of hearing, does not appear to be in distress, ROS not able due to him not understanding/being able to hear me at all. Discussed with family 02/15, they accept the increased risks of aspiration with him and would like to proceed with p.o. intake. Also they stated they will maintain follow-up with palliative care once discharged with possible plan to transitioning to hospice if his condition worsens. Discussed with speech, they recommend pured diet with mildly thick liquids. Will resume his po meds. Physical Exam Physical Exam: GENERAL: Alert and awake. NAD, on RA. Very [place]. HEENT: No pallor, no icterus. Pupils equal, round and reactive to light. Oral mucosa moist. L face droop. NECK: No JVD, no neck masses. HEART: S1 and S2 heard. irregular rate and rhythm. No murmur, no gallop. RESPIRATORY SYSTEM: Normal AP diameter. No accessory muscle use. No wheezing, no crackles. ABDOMEN: Soft, bowel sounds present, nontender, no distention. CENTRAL NERVOUS SYSTEM: No facial droop. Speech is clear. Obeys simple commands. Moves extremities Lt weaker than right. EXTREMITIES: No edema, no erythema seen. Results & Data Results & Data Vital Signs (Past 12 Hours) Vital Signs Temp Pulse Pulse Resp BP BP Pulse Ox 02/16/23 15:27 37.0 C 79 23 146/87 H 94 02/16/23 10:54 37.0 C 95 H 21 140/78 95 02/16/23 09:52 102 H 148/103 H 02/16/23 09:27 101 H 197/130 H 02/16/23 07:43 95 H 180/120 H 02/16/23 07:28 36.0 C L 81 20 181/139 H 95 O2 Del Method 02/16/23 15:27 Room Air 02/16/23 10:54 Room Air 02/16/23 09:52 02/16/23 09:27 02/16/23 07:43 02/16/23 07:28 Room Air (2) Atrial fibrillation Atrial fibrillation type: unspecified Qualified Code(s): I48.91 - Unspecified atrial fibrillation
[2023-02-16] MEDS: lisinopril 20 MG TAB PO SCH (21:56)
[2023-02-17] MEDS ORDERED: LEVOTHYROXINE SODIUM 75 MCG TABLET PO SCH (06:30)
[2023-02-17 07:27] LABS: Hematocrit (blood only) 41.2 % (42.0-52.0); Hemoglobin 13.1 g/dl (14.0-18.0); Mean Corpuscular Hgb Conc 31.8 g/dL (32.0-36.0); Mean Corpuscular Volume 84.8 fL (80.0-100.0); Mean Platelet Volume 9.9 fL (9.4-12.4); Platelet Count 234 K/uL (130-400); RDW Coefficient of Variation 15.6 % (11.5-14.5); RDW Standard Deviation 47.7 fL (36.4-46.3); Red Blood Count 4.86 M/uL (4.70-6.10); White Blood Count 10.07 K/ul (4.8-10.8)
[2023-02-17 07:52] LABS: BUN Creatinine Ratio 17.5 (10-20); Calcium 8.7 mg/dl (8.6-10.3); Creatinine Clr Calc Pharmacy 66.4 ml/min; Est GFR (African American) 70.5 ml/min; Est GFR (Non-African American) 60.8 ml/min; Potassium 3.6 mmol/L (3.5-5.1)
[2023-02-17] MEDS: cloNIDine HCL 0.1 MG TAB PO SCH ×3 (09:49→21:21)
[2023-02-17] MEDS: THIAMINE HCL 100 MG TAB PO SCH (09:49)
[2023-02-17] MEDS: METOPROLOL SUCC 50MG EXT REL TAB PO SCH (09:49)
[2023-02-17] MEDS: CLOPIDOGREL BISULFATE 75 MG TAB PO SCH (09:50)
[2023-02-17] MEDS: APIXABAN 5 MG TABLET PO SCH (09:50)
[2023-02-17] MEDS: SERTRALINE HCL 50 MG TABLET PO SCH (09:50)
[2023-02-17] MEDS: SPIRONOLACTONE 25 MG TAB PO SCH (09:50)
[2023-02-17] MEDS: ATORVASTATIN 40 MG TAB PO SCH (09:51)
[2023-02-17] MEDS ORDERED: D5W AND 1/2NSS 1,000 ML IV SCH (13:00)
[2023-02-17] MEDS ORDERED: HYDROmorphone INJ 0.5 MG/0.5 ML SYR IV PRN (15:05)
[2023-02-17] MEDS ORDERED: GLYCOPYRROLATE 0.2 MG/ML VIAL IV PRN (15:05)
[2023-02-17] MEDS ORDERED: LORazepam 2 MG/1 ML VIAL IV PRN (15:05)
[2023-02-17] MEDS ORDERED: HYDROmorphone INJ 1 MG/ML SYRINGE IV PRN (15:07)
--- NOTE | 2023-02-17 15:14 | Palliative Care Progress Note ---
Date of Service February 17, 2023 Assessment & Plan (1) Weakness generalized: (2) Dyspnea and respiratory abnormalities: (3) Palliative care by specialist: (4) Discussion about advance care planning held with family member: Plan: Met with family at bedside. They would like to bring him home. Asked about hospice: We discussed the goals of hospice as a patient service and the goals of care; we discussed EOL trajectories and transitions naomi the emotional impact of realizing mortality as a concrete reality from prior abstract considerations. Pt was reassured that no matter where they are along this trajectory, they are not alone - their medical team will remain by their side through their journey. Discussed the pros/cons of accepting help when especially weakened and distressed by pain-which would also help provide relief/decrease caregiver burden/strain. I provided education about the hospice benefit: an interdisciplinary program offered by nurses, nurses aides, social workers, chaplains and a medical practice administrator for patients with a terminal condition and a life expectancy of less than 6 months. This is covered by Medicare at 100%/no out of pocket expense to patient and all meds/supplies needed by patient for the reason they are on hospice are paid for/covered by hospice. The goal is assure quality of life of the patient in their home setting (home, retirement, inpatient hospice setting) by providing symptoms management, psychosocial and spiritual support. However, they cannot offer 24 hours care and if the family is unable to provide that care, they will have to consider personal care with out of pocket cost vs. retirement placement. We discussed the goals of hospice as a patient service and the goals of care; we discussed EOL trajectories and transitions naomi the emotional impact of realizing mortality as a concrete reality from prior abstract considerations. Pt was reassured that no matter where they are along this trajectory, they are not alone - their medical team will remain by their side through their journey. Discussed the pros/cons of accepting help when especially weakened and distressed by pain-which would also help provide relief/decrease caregiver burden/strain. Reiterated hospice is not a 24/7 ATC presence in their home. The majority of his care will come from family. Will be bedbound at this junction, care will be focused on comfort and managing EOL symptoms. We reviewed the meds and how they can be utilized for comfort. We also discussed changes pt may move through in the dying process including but not limited to sleeping more, disorientation when awake, restlessness, diminished senses/inability to respond to stimulus although ability to be aware of them remains intact longer, changes in body temperatures, skin changes/mottling/cyanosis, respiratory pattern changes, oral secretions. Family verbalized understanding. The goal is to assure a peaceful . (5) Encounter for hospice care discussion: (6) Acute ischemic stroke: (7) Paroxysmal atrial fibrillation: (8) CHF (congestive heart failure): (9) CVA (cerebral vascular accident): (10) Cerebrovascular disease: (11) CAD (coronary artery disease): (12) Hypertension: Plan * Move to comfort care, orders written * Home with hospice, CM notified (Lucy/Clarice) * Primary team and nursing notified * Await transfer to private room, d/c monitors, labs, imaging etc. * Extensive support to family. Reassurance provided. * TS 65min on this case, 45min face to face ACP discussion Thank you for allowing us to participate in the ongoing care of this patient. Please don't hesitate to call or page with any additional concerns. Dr. Jeannette Galindo DNP Director, Palliative Care Admission and Anticipated Discharge Date Admission Date: February 13, 2023 Subjective worsening AMS not waking up not taking PO . dtr and grandson at bedside Review of Systems Review of Systems: Unobtainable due to cognitive status and Unobtainable due to reduced consciousness Physical Exam Constitutional: + ill appearing and + lethargic Neck: no stridor Respiratory: mild inc effort, sonorous respirations, coarse rhonchi at times Cardiovascular: Rate/Rhythm: regular rate Gastrointestinal (Abdomen): obese, soft, no grimacing with palpation Neurologic: + obtunded Results & Data Vital Signs (Past 12 Hours) Vital Signs Temp Pulse Resp BP Pulse Ox O2 Del Method 02/17/23 08:00 Room Air 02/17/23 10:54 36.8 C 80 20 123/85 93 Room Air 02/17/23 07:35 36.9 C 82 22 163/93 H 93 Room Air 02/17/23 03:56 36.3 C L 96 H 23 154/85 H 94 Room Air Laboratory Results data reviewed Diagnostic Findings data reviewed PG Care Time/CCT Total # of Minutes Spent Total Time Spent: 65 Total Time Spent with Patient: Total time spent is greater than 50% in coordination of care (as documented) at patient's floor/unit and/or counseling patient: Advanced Care Planning 43597 Advanced Care Planning 30 Min 12959 Advanced Care Planning Additional 30 Min [place] [address] SUB INP/OBS CARE 3/50MIN Patient Type Established History Comprehensive Exam Comprehensive Medical Decision Making High Complexity Diagnoses Weakness generalized R53.1 Dyspnea and respiratory abnormalities R06.00; R06.89 Palliative care by specialist Z51.5 Discussion about advance care planning held with family member Z71.0 Encounter for hospice care discussion Z71.89 Acute ischemic stroke I63.9 Paroxysmal atrial fibrillation I48.0 CHF (congestive heart failure) I50.9 CVA (cerebral vascular accident) I63.9 Cerebrovascular disease I67.9 CAD (coronary artery disease) I25.10 Hypertension I10 Hypertension type: unspecified Additional Codes Advanced Care Planning - 79113 Advanced Care Planning 30 Min: 45075 Advanced Care Planning 30 Min ([id number]) Advanced Care Planning - 75582 Advanced Care Planning Additional 30 Min: 65571 Advanced Care Planning Additional 30 Min ([id number]) (12) Hypertension Hypertension type: unspecified Qualified Code(s): I10 - Essential (primary) hypertension
--- NOTE | 2023-02-17 17:30 | Hospitalist Progress Note ---
Date of Service February 17, 2023 Assessment & Plan (1) Acute ischemic stroke: (2) Atrial fibrillation: (3) CAD (coronary artery disease): (4) Cerebrovascular disease: (5) CHF (congestive heart failure): Plan 77 year-old male who has a significant past medical history of atrial fi brillation anticoagulated on Eliquis, chronic HFpEF, HTN, HLD, history of CVA, CAD with hx of CABG, CKD stage III, BPH who presents to ED secondary to strokelike symptoms. He was being managed for the following: Acute ischemic stroke within the right basal ganglia and periventricular left temporal lobe with left-sided facial droop, dysarthria and worsened left-sided weakness hx of acute ischemic CVA aug 2021 Vascular dementia Chronic aspiration, worsened with this stroke Atrial fibrillation, chronic: Carotid Artery Stenosis: Chronic HFpEF CAD with hx of CABG x 4 in 2009 in [place], [place] Hypertension Hypocalcemia Hypothyroidism DVT prophylaxis Per palliative care discussion 02/17, patient converted to comfort care status with a plan to go to home with hospice. Patient will be transferred to [facility] floor. Admission and Anticipated Discharge Date Admission Date: February 13, 2023 Subjective patient seen and examined at bedside as a follow-up of acute ischemic stroke and worsening dementia and worsening aspiration risk. Patient's and daughter present at bedside, updated, patient still refusing diet per RN. I will continue IV fluid for the interim. Palliative care discussion during the day, patient converted to comfort care status with telemetry plan to go to home with hospice. Patient will be transferred to [facility] floor. Physical Exam Physical Exam: GENERAL: Alert and awake. NAD, on RA. Very [place]. HEENT: No pallor, no icterus. Pupils equal, round and reactive to light. Oral mucosa moist. L face droop. NECK: No JVD, no neck masses. HEART: S1 and S2 heard. irregular rate and rhythm. No murmur, no gallop. RESPIRATORY SYSTEM: Normal AP diameter. No accessory muscle use. No wheezing, no crackles. ABDOMEN: Soft, bowel sounds present, nontender, no distention. CENTRAL NERVOUS SYSTEM: No facial droop. Speech is clear. Obeys simple commands. Moves extremities Lt weaker than right. EXTREMITIES: No edema, no erythema seen. Results & Data Results & Data Vital Signs (Past 12 Hours) Vital Signs Temp Pulse Resp BP Pulse Ox O2 Del Method 02/17/23 15:12 36.3 C L 62 19 162/84 H 95 Room Air 02/17/23 08:00 Room Air 02/17/23 10:54 36.8 C 80 20 123/85 93 Room Air 02/17/23 07:35 36.9 C 82 22 163/93 H 93 Room Air (2) Atrial fibrillation Atrial fibrillation type: unspecified Qualified Code(s): I48.91 - Unspecified atrial fibrillation
[2023-02-17] MEDS: lisinopril 20 MG TAB PO SCH (21:21)
[2023-02-18] MEDS: LEVOTHYROXINE SODIUM 50 MCG TABLET PO SCH (06:08)
[2023-02-18] MEDS: METOPROLOL SUCC 50MG EXT REL TAB PO SCH (09:23)
[2023-02-18] MEDS: cloNIDine HCL 0.1 MG TAB PO SCH ×2 (09:23→13:00)
--- NOTE | 2023-02-18 13:35 | Discharge Summary ---
Date of Service February 18, 2023 Admission HPI Per Admitting Provider This is a 77 year-old male who has a significant past medical history of atrial fibrillation anticoagulated on Eliquis, chronic HFpEF, HTN, HLD, history of CVA, CAD with hx of CABG, CKD stage III, BPH who presents to ED secondary to strokelike symptoms. and daughter are at bedside. had difficulty getting patient out of the bed this morning and therefore she contacted her daughter to come with assistance. While waiting for her daughter to come with assistance she was able to get into the living room in a chair. When daughter arrived at approximately 1115 she noted significant facial droop on the left side and at that time he had increased left-sided weakness. Symptoms to likely occurred somewhere between 1045 and 1115 as brought patient to living room around 1045 and did not notice any deficits. Of significance patient does have vascular dementia at baseline from previous strokes. He last seen a stroke in August 2021 which also affected his left side and he continues to have residual left-sided weakness, memory deficits and slight dysarthria. At baseline he ambulates with a walker but does require much assistance. He currently is on aspirin, statin and Eliquis in setting of A-fib. He has been compliant with medications and has not missed a dose. His last dose of Eliquis was this morning. Prior to today states that patient was at baseline prior to today. In regards to patient's vascular dementia he does typically know familiar faces and family, but occasionally asks his who she is. He is also very hard of hearing which also complicates his memory. ROS difficult to obtain from patient due to dysarthria and cognition. Patient is incontinent of urine at baseline and wears depends but is not incontinent of stool.In ED patient was initially hypertensive. Initial head CT negative for hemorrhage. No change of head CTA since July 14, 2022 which revealed severe multifocal stenoses, no large vessel occlusion.50% stenosis of the proximal left internal carotid artery which is mildly progressed since CTA of July 14, 2022. This is due to moderate atherosclerotic plaque. He was seen and evaluated by telestroke. Per ER provider it was recommended to be administered loading dose of aspirin; however, this was not done. Admission Exam Per Admitting Provider N Constitutional: Elderly, chronically ill M, WD/WN, vitals as above, NAD, sitting up in bed, L Facial droop Head: Normocephalic, Atraumatic Eyes: PERRL, conjunctivae normal, anicteric sclerae ENMT: external ear and nose normal, oropharynx normal dry membranes, L facial droop Neck: trachea midline, no thyromegaly normal visual inspection Respiratory: normal respiratory effort, lungs clear to auscultation, no wheeze, rales, rhonchi. 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 NAD, on RA. Very KASAAN. HEENT: No pallor, no icterus. Pupils equal, round and reactive to light. Oral mucosa moist. L face droop. NECK: No JVD, no neck masses. HEART: S1 and S2 heard. irregular rate and rhythm. No murmur, no gallop. RESPIRATORY SYSTEM: Normal AP diameter. No accessory muscle use. No wheezing, no crackles. ABDOMEN: Soft, bowel sounds present, nontender, no distention. CENTRAL NERVOUS SYSTEM: Moves extremities Lt weaker than right. left facial droop. EXTREMITIES: No edema, no erythema seen. Discharge Data Allergies Allergy/AdvReac Type Severity Reaction Status Date / Time No Known Allergies Verified 05/10/22 18:25 Consultations 02/13/23 13:56 ED Decision to Admit Stat 02/13/23 15:55 Consult Neurology Routine 02/14/23 11:18 Consult Palliative Care Routine Ordered Studies 02/13/23 12:03 CT angio head w con Stat CT angio neck with con Stat CT head/brain wo con Stat 02/13/23 14:02 MR brain wo con Routine Hospital Course (1) Acute ischemic stroke: (2) Atrial fibrillation: (3) CAD (coronary artery disease): (4) Cerebrovascular disease: (5) CHF (congestive heart failure): Plan 77 year-old male who has a significant past medical history of atrial fibrillation anticoagulated on Eliquis, chronic HFpEF, HTN, HLD, history of CVA, CAD with hx of CABG, CKD stage III, BPH who presents to ED secondary to strokelike symptoms. He was being managed for the following: Acute ischemic stroke within the right basal ganglia and periventricular left temporal lobe with left-sided facial droop, dysarthria and worsened left-sided weakness hx of acute ischemic CVA aug 2021 Vascular dementia Chronic aspiration, worsened with this stroke Atrial fibrillation, chronic: Carotid Artery Stenosis: Chronic HFpEF CAD with hx of CABG x 4 in 2009 in [place], [place] Hypertension Hypocalcemia Hypothyroidism DVT prophylaxis Per palliative care discussion 02/17, patient converted to comfort care status with a plan to go to home with hospice today today. Discussed with patient's , plan to discontinue blood thinners Eliquis and aspirin. Will hold diuretic medications as well as patient has decreased p.o. intake. We will leave other medication as it is for now, patient's made aware that the hospice provider will take charge over the medications once they start taking care of him. Home Health Attestation I certify that this patient is under my care and that I, or a physicians music assistant working with me, had a face to-face encounter that meets the home health [id number] encounter requirements with this patient. The encounter with the patient was in whole, or in part, for the following medical condition, which is the primary reason for home health care (list medical condition): I certify that, based on my findings, the following services are medically necessary home health services: My clinical findings support the need for the above services because: Further, I certify that my clinical findings support that this patient is homebound (i.e. absences from home require considerable and taxing effort and are for medical reasons or latter day services or infrequently or of short duration when for other reasons) because: Certification for Home Health Services: Based on the above findings, I certify that this patient is confined to the home and needs intermittent mcc care, physical therapy and/or speech therapy or continues to need occupational therapy. The patient is under my care, and I have initiated the establishment of the plan of care. This patient will be followed by a physician who will periodically review the plan of care. Total Time Total Time Spent Total Time Spent (In Minutes): 40 Discharge Plan Discharge Items Patient Disposition: Hospice - Home Reason For Visit: STROKE Discharge Diagnosis: Acute ischemic stroke within the right basal ganglia and periventricular left temporal lobe with left-sided facial droop, dysarthria and worsened left-sided weakness hx of acute ischemic CVA aug 2021 Vascular dementia Chronic aspiration, worsened with this stroke Activity: Resume your previous activity Non-emergency contact: Primary Care Provider Call non-emergency contact if: you have any medication questions, your symptoms worsen and your temperature is above 101 Follow-up/Referrals: Светлана Jones MD [Primary Care Provider] - Diet: Regular Diet Texture: Pureed (blended smooth) Liquid Consistency: Honey thick Addtl Attending Provider Instructions: You are being discharged to home with hospice. As discussed at the bedside, blood thinner Eliquis and aspirin will be held. Other medication will be continued for now, hospice provider will take over the medication charges once they start seeing him. Pending Studies at Discharge: No Stand-Alone Forms: My [facility], Medications to Prevent Stroke Medications and DC Order Prescriptions: New morphine concentrate 100 mg/5 mL (20 mg/mL) solution 5 mg PO Q6H PRN (Reason: agitation/resp distress/pain) Qty: 30 0RF lorazepam [Ativan] 0.5 mg tablet 0.5 mg sublingual Q2H PRN (Reason: agitation) 3 Days Qty: 18 0RF Continued atorvastatin 80 mg tablet 80 mg PO QAM lisinopril 20 mg tablet 20 mg PO HS metoprolol succinate 50 mg Tablet Extended Release 24 Hr 50 mg PO HS thiamine HCl (vitamin B1) 100 mg Tablet 100 mg PO QAM Qty: 30 0RF Rx Instructions: OTC Prevagen 1 tab PO DAILY Rx Instructions: unable to verify with home delivery pharmacy clonidine HCl 0.1 mg tablet 0.1 mg PO TID Rx Instructions: 1 am, 1 at noon, 1 pm levothyroxine [Synthroid] 50 mcg tablet 50 mcg PO [id number] Rx Instructions: per home delivery, instructions on how to take were enclosed with medication sertraline 25 mg tablet 25 mg PO DAILY metoprolol succinate 50 mg tablet extended release 24 hr 100 mg PO DAILY levothyroxine [Synthroid] 50 mcg tablet 75 mcg PO [id number] Discontinued Eliquis 5 mg tablet 5 mg PO AMPM aspirin 81 mg Tablet,Delayed Release (Dr/Ec) 81 mg PO QAM Qty: 30 0RF Rx Instructions: unable to verify with home delivery pharmacy spironolactone 25 mg Tablet 25 mg PO QAM Qty: 30 0RF Discharge Orders: Discharge Order (Routine); Ordered 02/18/23 Ordered By: Mar Alvares/Other Patient Handouts: A1C, 5 Steps for Eating Healthier Admission Data Admit Date/Time: 02/13/23 14:57 Attending Provider: Mar Wren Admit Provider: Esperanza Gastelum Primary Care Provider: Светлана Jones Other Providers: [facility] ; [facility] ; Esperanza Gastelum ; Jasvir Polk ; Asia Cantu ; Jeannette Galindo
== END 2023-02-18 15:35 | disposition hospice, home (50) | DRG 65 ==
LOC: ED 12:21 → SUATTDRO 14:57 → 2E 14:57 → 3W 02-17 22:41
DX: R29.715 NIHSS score 15; Z87.891 Personal history of nicotine dependence; G81.94 Hemiplegia, unspecified affecting left nondominant side; I25.10 Atherosclerotic heart disease of native coronary artery without angina pectoris; E03.9 Hypothyroidism, unspecified; Z66 Do not resuscitate; I13.0 Hypertensive heart and chronic kidney disease with heart failure and stage 1 through stage 4 chronic kidney disease, or unspecified chronic kidney disease; I50.32 Chronic diastolic (congestive) heart failure; R47.1 Dysarthria and anarthria; G47.33 Obstructive sleep apnea (adult) (pediatric); Z86.73 Personal history of transient ischemic attack (TIA), and cerebral infarction without residual deficits; Z91.199 Patient's noncompliance with other medical treatment and regimen due to unspecified reason; Z82.3 Family history of stroke; N40.0 Benign prostatic hyperplasia without lower urinary tract symptoms; F01.518 Vascular dementia, unspecified severity, with other behavioral disturbance; R13.10 Dysphagia, unspecified; I48.20 Chronic atrial fibrillation, unspecified; Z79.01 Long term (current) use of anticoagulants; Z95.1 Presence of aortocoronary bypass graft; Z79.82 Long term (current) use of aspirin; Z51.5 Encounter for palliative care; N18.30 Chronic kidney disease, stage 3 unspecified; E83.51 Hypocalcemia; Z79.890 Hormone replacement therapy; I63.232 Cerebral infarction due to unspecified occlusion or stenosis of left carotid arteries; R29.810 Facial weakness; Z79.899 Other long term (current) drug therapy